=== PATIENT | male | born 1980 | race Two or more races ===

== ENCOUNTER 2023-09-19 15:36 | Emergency (ER) | payer BC, SELFPAY ==
[2023-09-19 15:41] VITALS: BP 144/112; PULSE 125; RESP 20; TEMP 36.7; O2SAT 99; BMI 43.1
--- NOTE | 2023-09-19 15:53 | XR_ITS ---
The [address] [address] Patient Name: JORGE ROSE MRN: [id number] date: 1980 Sex: M Assigned Patient Location: ER Current Patient Location: ED.MAIN Accession/Order Number: [id number] Exam Date: 09/19/2023 16:00 Report Date: 09/19/2023 16:50 At the request of: LATASHA SMITH Procedure: XR chest 1V EXAM: XR chest 1V HISTORY: Dyspnea. COMPARISON: None FINDINGS: The heart is enlarged. There is mild diffuse prominence of the pulmonary vasculature and coarsening of the interstitial markings bilaterally. No significant pleural fluid collection is observed. There is no evidence of a consolidated infiltrate or pneumothorax. XR/XR chest 1V IMPRESSION: Mild vascular congestion. Electronically authenticated by: KYLE MARTINEZ Date: 09/19/2023 16:50
--- NOTE | 2023-09-19 15:53 | ECG_ITS ---
The [facility] Test Date: 2023-09-19 Pat Name: JORGE ROSE Department: Room: - Gender: Male Concierge: : 1980 Requested By: [id number] Order Number: [id number] Reading MD: CECILIA HARTMANN Measurements Intervals [place] Rate: 122 P: 65 MT: 138 QRS: 115 QRSD: 102 T: 25 QT: 334 QTc: 407 Interpretive Statements 1120 Sinus tachycardia 2440 Incomplete right bundle branch block 4068 Nonspecific Twave abnormality 5120 Possible right ventricular hypertrophy 9140 abnormal rhythm ECG No previous ECG available for comparison Electronically Signed On 09-19-2023 17:44:18 EST by CECILIA HARTMANN
--- NOTE | 2023-09-19 15:53 | ED.SOB1 ---
HPI - SOB/Dyspnea General Chief Complaint: Shortness of Breath/Dyspnea Stated Complaint: Edema Time Seen by Provider: 09/19/23 15:52 Source: patient Mode of arrival: walk-in Limitations: no limitations History of Present Illness HPI Narrative: Patient here complaining shortness of breath and leg edema. He's got numb or medical problems but we have no previous records from this institution and is extremely poor historian. Apparently gets most was cared [place] we will ask for those reports. He says he hasn't taken his medications for months and months. Because he was noncompliant his primary care doctor wouldn't see him.he states he was in the emergency room at [place] and they did give him some Lasix but he is vague on the details or the dosages. We will contact pharmacy to see the details that information. He's not been here before as noted. He says he really doesn't have much shortness of breath. He has lost swelling of his legs extending up into the scrotum. His been insulin-dependent diabetes patient for many years and he is taking his diabetes meds on a regular basis especially the insulin. He's not sure if he is taking his metformin. Related Data Home Medications Medication Instructions Recorded Confirmed furosemide 20 mg tablet 20 mg PO DAILY 09/19/23 09/19/23 insulin aspart U-100 100 unit/mL 10 unit subcut DAILY 09/19/23 09/19/23 (3 mL) subcutaneous pen (Novolog FlexPen U-100 Insulin aspart) insulin detemir U-100 100 unit/mL 1 unit subcut DAILY 09/19/23 09/19/23 (3 mL) subcutaneous pen (Levemir FlexPen) insulin detemir U-100 100 unit/mL 45 unit subcut DAILY 09/19/23 09/19/23 (3 mL) subcutaneous pen (Levemir FlexPen) Allergies Allergy/AdvReac Type Severity Reaction Status Date / Time No Known Drug Allergies Allergy Verified 09/19/23 15:40 [facility] Social History Smoking status: Current every day smoker Exam Narrative Exam Narrative: pleasant 42-year-old appears somewhat older than stated age. Vital signs are noted.venture his mother did come and assist in the history gathering. He also did obtain records from [facility] from his previous his visit there. He is not in a respiratory distress. He has moist mucous membranes. There is no pallor or cyanosis or diaphoresis. Lungs have some scattered rhonchi but no wheezing. Heart rate and rhythm are normal he does have tachycardia. His EKG did show sinus tachycardia but no EKG changes from an EKG done on 07/13/2023 and [place]. He's got substantial edema from his scrotal area distal to his lower extremities. He does wear support stockings bilaterally. There is no indication of arterial vascular insufficiency in his legs. He does not have any cyanosis. Does not have any tenderness or evidence of deep vein thrombosis in the extremities. Constitutional Vital Signs, click to edit/add: Last Vital Signs Temp 98.0 F 09/19/23 15:41 Pulse 125 H 09/19/23 15:41 Resp 20 09/19/23 15:41 BP 124/102 H 09/19/23 17:17 Pulse Ox 99 09/19/23 16:05 O2 Del Method Room Air 09/19/23 16:05 Course Vital Signs Vital signs: Vital Signs Temperature 98.0 F 09/19/23 15:41 Pulse Rate 125 H 09/19/23 15:41 Respiratory Rate 20 09/19/23 15:41 Blood Pressure 144/112 H 09/19/23 15:41 Pulse Oximetry 99 09/19/23 15:41 Oxygen Delivery Method Room Air 09/19/23 15:41 Temperature 98.0 F 09/19/23 15:41 Pulse Rate 125 H 09/19/23 15:41 Respiratory Rate 20 09/19/23 15:41 Blood Pressure 124/102 H 09/19/23 17:17 Pulse Oximetry 99 09/19/23 16:05 Oxygen Delivery Method Room Air 09/19/23 16:05 MDM - SOB/Dyspnea MDM Narrative Medical decision making narrative: this patient admits to noncompliance. I had an extensive talk with him and believe tthere issome degree of depression about his previous life choices and his family relationships. His mother confirms that information and he assures me he'll try to be much more compliant. I don't believe he can work next two days. I have offered him admission but he wants to go home. I will refill on his medications that we got from his pharmaceutical record he will be given 2 mg of Bumex here and will aggressively diureses Similac several days. I will give him some supplemental potassium as well. I emphasized the importance of following up with his primary care doctor to keep evaluation of his laboratory testing. Lab Data Labs: Lab Results 09/19/23 Range/Units 16:05 WBC 10.7 (4.0-11.0) 10^3/uL RBC 5.25 (4.70-6.10) 10^6/uL Hgb 14.9 (14.0-18.0) g/dL Hct 47.1 (42.0-54.0) % MCV 89.7 (80.0-94.0) fL MCH 28.4 (25.9-34.0) pg MCHC 31.6 (29.9-35.2) g/dL RDW 14.6 (11.0-15.0) % Plt Count 360 (150-450) 10^3/uL MPV 9.4 L (9.5-13.5) fL Neut % (Auto) 73.3 (43.0-75.0) % Lymph % (Auto) 17.2 L (20.5-60.0) % [place] % (Auto) 7.9 (1.7-12.0) % Eos % (Auto) 1.0 (0.9-7.0) % Baso % (Auto) 0.3 (0.2-2.0) % Neut # (Auto) 7.9 H (1.4-6.5) 10^3/uL Lymph # (Auto) 1.8 (1.2-3.8) 10^3/uL [place] # (Auto) 0.9 H (0.3-0.8) 10^3/uL Eos # (Auto) 0.1 (0.0-0.7) 10^3/uL Baso # (Auto) 0.0 (0.0-0.1) 10^3/uL Abs Immat Gran (auto) 0.03 (0.00-0.03) 10^3/uL Imm/Tot Granulo (auto) 0.3 (0.0-0.5) % VBG pH 7.457 H (7.330-7.430) VBG pCO2 42.9 (40.0-52.0) mmHg Sodium 138 (136-145) mmol/L Potassium 2.9 L* (3.5-5.1) mmol/L Chloride 99 (98-107) mmol/L Carbon Dioxide 32.3 H (21.0-32.0) mmol/L Anion Gap 9.6 BUN 14.0 (7.0-18.0) mg/dL Creatinine 1.49 H (0.70-1.30) mg/dL Est GFR ( Amer) >60 (>=60) Est GFR (Non-Af Amer) 51 L (>=60) BUN/Creatinine Ratio 9.4 Glucose 101 (74-106) mg/dL Calcium 9.0 (8.5-10.1) mg/dL Total Bilirubin 1.0 (0.2-1.0) mg/dL AST 21 (15-37) U/L ALT 23 (16-63) U/L Alkaline Phosphatase 113 (46-116) U/L Troponin I High Sens 37.2 (4.0-76.1) pg/mL NT-Pro-B Natriuret Pep 7189.0 H* (<=450.0) pg/mL Total Protein 8.0 (6.4-8.2) g/dL Albumin 2.9 L (3.4-5.0) g/dL Globulin 5.1 g/dL Albumin/Globulin Ratio 0.6 Discharge Plan Discharge Chief Complaint: Shortness of Breath/Dyspnea Clinical Impression: Heart failure Patient Disposition: Home, Self-Care Time of Disposition Decision: 17:57 Prescriptions / Home Meds: No Action furosemide 20 mg tablet 20 mg PO DAILY insulin aspart U-100 [Novolog FlexPen U-100 Insulin] 100 unit/mL (3 mL) insulin pen 10 unit SUBCUT DAILY Levemir FlexPen 100 unit/mL (3 mL) insulin pen 1 unit SUBCUT DAILY Levemir FlexPen 100 unit/mL (3 mL) insulin pen 45 unit subcut DAILY Additional Instructions: restart your medications. Take Bumex for the next five days twice a day. Do not go to work for the next two days. Restrict salt intake. Be sure to see her primary care doctor by the end of this week Stand Alone Forms: Portal Instructions Referrals: Physician,Non-Staff, MD [Primary Care Provider] - 1 week
[2023-09-19 16:05] VITALS: O2SAT 99
[2023-09-19 16:14] LABS: PCO2 VBG 42.9 mmHg (40.0-52.0); pH VBG 7.457 (7.330-7.430)
[2023-09-19 16:17] LABS: Basophils Percent Auto 0.3 % (0.2-2.0); Eosinophils Absolute Auto 0.1 10^3/uL (0.0-0.7); Hematocrit 47.1 % (42.0-54.0); Hemoglobin 14.9 g/dL (14.0-18.0); Immature Granulocytes Abs Auto 0.03 10^3/uL (0.00-0.03); Immature Granulocytes Pct Auto 0.3 % (0.0-0.5); Lymphocytes Absolute Auto 1.8 10^3/uL (1.2-3.8); Lymphocytes Percent Auto 17.2 % (20.5-60.0); Mean Corpuscular HGB Conc 31.6 g/dL (29.9-35.2); Mean Corpuscular Hemoglobin 28.4 pg (25.9-34.0); Mean Corpuscular Volume 89.7 fL (80.0-94.0); Mean Platelet Volume 9.4 fL (9.5-13.5); Monocytes Absolute Auto 0.9 10^3/uL (0.3-0.8); Monocytes Percent Auto 7.9 % (1.7-12.0); Neutrophils Absolute Auto 7.9 10^3/uL (1.4-6.5); Neutrophils Percent Auto 73.3 % (43.0-75.0); Platelet Count 360 10^3/uL (150-450); Red Blood Count 5.25 10^6/uL (4.70-6.10); Red Cell Distribution Width 14.6 % (11.0-15.0); White Blood Count 10.7 10^3/uL (4.0-11.0)
[2023-09-19 16:35] LABS: Alanine Aminotransferase 23 U/L (16-63); Albumin Globulin Ratio 0.6; Albumin Level 2.9 g/dL (3.4-5.0); Alkaline Phosphatase 113 U/L (46-116); Anion Gap 9.6; Aspartate Amino Transferase 21 U/L (15-37); BUN Creatinine Ratio 9.4; Carbon Dioxide 32.3 mmol/L (21.0-32.0); Chloride 99 mmol/L (98-107); Estimated GFR (African America >60 (>=60); Estimated GFR (Non-African Ame 51 (>=60); Globulin 5.1 g/dL; Glucose 101 mg/dL (74-106); Sodium 138 mmol/L (136-145); Troponin I High Sensitivity 37.2 pg/mL (4.0-76.1)
[2023-09-19 16:39] LABS: Potassium 2.9 mmol/L (3.5-5.1)
[2023-09-19 17:16] VITALS: BP 124/102
[2023-09-19] MEDS: BUMETANIDE 1 MG/4 ML VIAL 2 MG IVP (17:16)
[2023-09-19 17:17] VITALS: BP 124/102
[2023-09-19 18:36] VITALS: BP 122/87
[2023-09-19] MEDS: LISINOPRIL 10 MG TABLET 20 MG PO (18:36)
[2023-09-19] MEDS: CARVEDILOL 25 MG TABLET PO (18:38)
[2023-09-19 18:43] VITALS: BP 122/87; PULSE 118; RESP 24; O2SAT 98
== END 2023-09-19 18:51 | disposition home or self-care (01) ==
PROVIDERS: Emergency Provider Emergency Medicine Emergency Medical Services
DX: I50.9 Heart failure, unspecified (principal); E11.9 Type 2 diabetes mellitus without complications; F17.210 Nicotine dependence, cigarettes, uncomplicated; Z79.4 Long term (current) use of insulin; Z79.899 Other long term (current) drug therapy
CPT/HCPCS: 36415; 71045; 80053; 82800; 83880; 84484; 85025; 93005; 96374; 99285

== ENCOUNTER 2024-07-09 11:40 | Outpatient (REF) | payer BC, SELFPAY ==
[2024-07-09 11:59] LABS: Basophils Percent Auto 0.3 % (0.2-2.0); Eosinophils Absolute Auto 0.2 10^3/uL (0.0-0.7); Eosinophils Percent Auto 2.4 % (0.9-7.0); Hematocrit 43.6 % (42.0-54.0); Immature Granulocytes Abs Auto 0.03 10^3/uL (0.00-0.03); Immature Granulocytes Pct Auto 0.3 % (0.0-0.5); Lymphocytes Absolute Auto 1.9 10^3/uL (1.2-3.8); Lymphocytes Percent Auto 21.5 % (20.5-60.0); Mean Corpuscular HGB Conc 32.1 g/dL (29.9-35.2); Mean Corpuscular Hemoglobin 30.4 pg (25.9-34.0); Mean Corpuscular Volume 94.6 fL (80.0-94.0); Mean Platelet Volume 9.1 fL (9.5-13.5); Monocytes Absolute Auto 0.7 10^3/uL (0.3-0.8); Monocytes Percent Auto 7.9 % (1.7-12.0); Neutrophils Percent Auto 67.6 % (43.0-75.0); Platelet Count 351 10^3/uL (150-450); Red Blood Count 4.61 10^6/uL (4.70-6.10); Red Cell Distribution Width 13.8 % (11.0-15.0); White Blood Count 8.9 10^3/uL (4.0-11.0)
--- OUTSIDE RECORDS SUMMARY | 2024-07-09 12:00 | XMS_ITS | CCD ---
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 ([id number])[address], [address] [place] [address] Eosinophils (Bld) [#/Vol] 0.3 10*3/uL Normal 0.0-0.4 [facility] Comment on above: Performed By: #### Mary BOWEN, , 1989-01, SWIMMING COACH ####[facility] ([id number])[address], [address] [place] [address] Eosinophils/100 WBC (Bld) 3.3 % Normal [facility] Comment on above: Performed By: #### Mary BOWEN, , 1989-01, SWIMMING COACH ####[facility] ([id number])[address] [address], [place] [address] Erythrocyte distribution width (RBC) [Ratio] 14.1 % Normal 11.5-15.0 [facility] Comment on above: Performed By: #### Mary BOWEN, , 1989-01, SWIMMING COACH ####[facility] ([id number])[address] [address], [place] [address] Hematocrit (Bld) [Volume fraction] 38.4 % Low 39-49 [facility] Comment on above: Performed By: #### Mary BOWEN, , 1989-01, SWIMMING COACH ####[facility] ([id number])[address] [address] Hemoglobin (Bld) [Mass/Vol] 13.2 g/dL Normal 13.0-17.0 [facility] Comment on above: Performed By: #### Mary BOWEN, , 1989-01, SWIMMING COACH ####[facility] ([id number])[address] [address] Lymphocytes (Bld) [#/Vol] 1.7 10*3/uL Normal 1.0-3.5 [facility] Comment on above: Performed By: #### Mary BOWEN, , 1989-01, SWIMMING COACH ####[facility] ([id number])[address] [address] Lymphocytes/100 WBC (Bld) 18.9 % Normal [facility] Comment on above: Performed By: #### Mary BOWEN, , 1989-01, SWIMMING COACH ####[facility] ([id number])[address] [address] MCH (RBC) [Entitic mass] 31.8 pg Normal 27-34 [facility] Comment on above: Performed By: #### Mary BOWEN, , 1989-01, SWIMMING COACH ####[facility] ([id number])[address], [address], [place] [address] MCHC (RBC) [Mass/Vol] 34.2 g/dL Normal 32-36 [facility] Comment on above: Performed By: #### Mary BOWEN, , 1989-01, SWIMMING COACH ####[facility] ([id number])[address], [address] [place] [address] MCV (RBC) [Entitic vol] 93 fL Normal 80-100 [facility] Comment on above: Performed By: #### Mary BOWEN, , 1989-01, SWIMMING COACH ####[facility] ([id number])[address], [address] [place] [address] Monocytes (Bld) [#/Vol] 0.6 10*3/uL Normal 0-0.9 [facility] Comment on above: Performed By: #### Mary BOWEN, , 1989-01, SWIMMING COACH ####[facility] ([id number])[address], [address] [place] [address] Monocytes/100 WBC (Bld) 6.3 % Normal [facility] Comment on above: Performed By: #### Mary BOWEN, , 1989-01, SWIMMING COACH ####[facility] ([id number])[address], [address] [place] [address] Neutrophils/100 WBC (Bld) 71.1 % Normal [facility] Comment on above: Performed By: #### Mary BOWEN, , 1989-01, SWIMMING COACH ####[facility] ([id number])[address], [address] [place] [address] Platelet mean volume (Bld) [Entitic vol] 7.1 fL Normal 7-12 [facility] Comment on above: Performed By: #### Mary BOWEN, , 1989-01, SWIMMING COACH ####[facility] ([id number])[address] [address] Platelets (Bld) [#/Vol] 358 10*3/uL Normal 150-450 [facility] Comment on above: Performed By: #### Mary BOWEN, , 1989-01, SWIMMING COACH ####[facility] ([id number])[address] [address] RBC COUNT 4.13 X10E12/L Normal 4.10-5.70 [facility] Comment on above: Performed By: #### Mary BOWEN, , 1989-01, SWIMMING COACH ####[facility] ([id number])[address] [address] WBC (Bld) [#/Vol] 8.8 10*3/uL Normal 4.0-11.0 [facility] Comment on above: Performed By: #### Mary BOWEN, , 1989-01, SWIMMING COACH ####[facility] ([id number])[address] [address] CREATININEon 06-28-2024 Creatinine [Mass/Vol] 1.02 mg/dL Normal 0.60-1.30 [facility] Comment on above: Result Comment: METH OD TRACEABLE TO IDMS STANDARD Performed By: #### Mary BOWEN, , 1989-01, SWIMMING COACH ####[facility] ([id number])[address] [address] eGFR (CKD-EPI) NON-RACE DEPENDENT >90 Normal >59 [facility] Comment on above: Result Comment: Repo rted eGFR is based on theCKD-EPI 2020 equation that doesnot use a race coefficient. Performed By: #### Mary BOWEN, , 1989-01, SWIMMING COACH ####[facility] ([id number])[address] [place] [address] CRP [Mass/Vol]on 06-28-2024 C REACTIVE PROTEIN 0.3 mg/dL Normal 0.000-0.744 [facility] Comment on above: Performed By: #### C BCA, 3094-0, 1988-, SWIMMING COACH ####[facility] ([id number])[address] [facility], [address] [place] [address] 36on 06-27-2024 36 Attempted to call pt to initiate Opat start but had to leave a message. Awaiting call back. 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 He will need 4 weeks of intravenous cefepime. He will need to have a PICC line placed, and home care will need to assist with dressing changes and labs. [facility] Follow-Upon 06-27-2024 Follow-Up [id number] Dario Rose as 1980 M Date Provider Department Center 06/27/2024 [facility] [place] No family history on file Level of Service:09708 [place] OFFICE/OUTPATIENT ESTABLISHED MOD MDM 30 MIN [facility] Telephoneon 06-27-2024 Telephone [id number] Dario Rose as 1980 M Date Provider Department Center 06/27/2024 [facility] No family history on file [facility] 36on 06-21-2024 36 Patient recently got out of surgery and 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 Augmentin and doxycycline to [facility] BONE CULTUREon 06-19-2024 Bacteria identified Aer cx Nom (Bone) Susceptible [facility] Comment on above: Performed By: #### 6 10-22 ####[facility] ([id number])[address], [address] [place] [address] Surgical Pathologyon 024 Surgical Pathology Normal [facility] Comment on above: Result Comment: [facility] [address] [place] [address] Surgical Pathology ConsultationPatient Name:JORGE ROSE IIIDOB:1980 (Age: 43)Gender:MTaken:06/19/2024eported:06/25/2024hysician(s):Bib Sanz M.D. ([phone])Copy To: Rec. #:[id number]: #[id number] Pathologic DiagnosisRight hallux: Resolving osteomyelitis. Ulceration and acute nad chronic inflammation. Viable resection margin with chronic inflammation. Report Electronically Signed Outcjb/06/25/2024antonieta Sneed MDInterpretation performed at [facility], [address] [place] [address], License number: [id number].Clinical HistoryRight hallux osteomyelitis.Gross DescriptionReceived in formalin labeled ROSE, right great toe is the distal aspect of right hallux, received transected through the proximal bone margin. Specimen is 4.2 cm proximal-distal, 3.2 cm medial-lateral and 2.4 cm dorsal-plantar. The specimen is resected with overlying guzman wrinkled skin with a guzman keratinized nail on the dorsal aspect, 1.6 x 1 cm. The majority of the plantar aspect exhibits a pink-guzman ulcer, 4 x 2 cm, extending at the proximal skin/soft tissue resection margin. The proximal margin is inked black. The specimen section to reveal red-brown softened bone. A technical support representative section of bone is submitted in cassette a after decalcification. Perpendicular sections of the lesion to the proximal margin are submitted in cassette B. (2, ss, [id number], m1) .med/06/20/2024GRSpecimen(s) Received Right great toeFee Codes(s):1; 70966, 46072 Follow-Upon 06-12-2024 Follow-Up [id number] Dario Rose as 1980 M Date Provider Department Center 06/12/2024 [facility] No family history on file Level of Service:69212 [place] OFFICE/OUTPATIENT ESTABLISHED MOD MDM 30 MIN Normal [facility] Follow-Upon 05-29-2024 Follow-Up [id number] Dario Rose as 1980 M Date Provider Department Center 05/29/2024 RUDY J[facility]NSON [facility] No family history on file Level of Service:48701 [place] OFFICE/OUTPATIENT ESTABLISHED MOD MDM 30 MIN Normal [facility] 36on 05-10-2024 36 Received a call from [employer] Nurse NavigatorTom. Wanted to setup a telehealth appointment for PT. Informed her that he needs to have an active MyChart before this can be done. He does not have an email on file for us or with [employer]. Made an in-person appointment for PT with Nurse Navigator. Confirmed our address with her, and I verified PT's phone number, as well as the number listed for PT's EC, spouse. Both are verified by [employer]. As of now, PT will be seen in person for initial appointment, and may setup telehealth for future appointments. Normal [facility] CBC AND AUTO DIFFon 05-10-20 24 ABSOLUTE BASOPHIL 0.1 X10E9/L Normal 0.0-0.2 [facility] Comment on above: Performed By: #### C [facility], 1989-01 ####[facility] ([id number])[address] [place] [address] ABSOLUTE NEUTROPHIL 8.1 X10E9/L High 1.5-6.6 [facility] Comment on above: Performed By: #### C [facility], 1989-01 ####[facility] ([id number])[address] [place] [address] Basophils/100 WBC (Bld) 0.8 % Normal [facility] Comment on above: Performed By: #### C [facility], 1989-01 ####[facility] ([id number])[address] [place] [address] Eosinophils (Bld) [#/Vol] 0.2 10*3/uL Normal 0.0-0.4 [facility] Comment on above: Performed By: #### Mary BOWEN [facility], 1989-01 ####[facility] ([id number])[address] [place] [address] Eosinophils/100 WBC (Bld) 1.7 % Normal [facility] Comment on above: Performed By: #### Mary BOWEN [facility], 1989-01 ####[facility] ([id number])[address] [place] [address] Erythrocyte distribution width (RBC) [Ratio] 13.0 % Normal 11.5-15.0 [facility] Comment on above: Performed By: #### Mary BOWEN [facility], 1989-01 ####[facility] ([id number])[address] [place] [address] Hematocrit (Bld) [Volume fraction] 38.5 % Low 39-49 [facility] Comment on above: Performed By: #### Mary BOWEN [facility], 1989-01 ####[facility] ([id number])[address] [place] [address] Hemoglobin (Bld) [Mass/Vol] 13.0 g/dL Normal 13.0-17.0 [facility] Comment on above: Performed By: #### Mary BOWEN [facility], 1989-01 ####[facility] ([id number])[address] [place] [address] Lymphocytes (Bld) [#/Vol] 1.9 10*3/uL Normal 1.0-3.5 [facility] Comment on above: Performed By: #### Mary BOWEN [facility], 1989-01 ####[facility] ([id number])[address] [place] [address] Lymphocytes/100 WBC (Bld) 16.7 % Normal [facility] Comment on above: Performed By: #### Mary BOWEN [facility], , 1989-01 ####[facility] ([id number])[address] [place] [address] MCH (RBC) [Entitic mass] 31.5 pg Normal 27-34 [facility] Comment on above: Performed By: #### Mary BOWEN [facility], , 1989-01 ####[facility] ([id number])[address] [place] [address] MCHC (RBC) [Mass/Vol] 33.6 g/dL Normal 32-36 [facility] Comment on above: Performed By: #### Mary BOWEN [facility], 1989-01 ####[facility] ([id number])[address] [place] [address] MCV (RBC) [Entitic vol] 94 fL Normal 80-100 [facility] Comment on above: Performed By: #### Mary BOWEN [facility], 1989-01 ####[facility] ([id number])[address] [place] [address] Monocytes (Bld) [#/Vol] 1.0 10*3/uL High 0-0.9 [facility] Comment on above: Performed By: #### Mray BOWEN [facility], 1989-01 ####[facility] ([id number])[address] [place] [address] Monocytes/100 WBC (Bld) 8.8 % Normal [facility] Comment on above: Performed By: #### Mary BOWEN [facility], 1989-01 ####[facility] ([id number])[address] [place] [address] Neutrophils/100 WBC (Bld) 72.0 % Normal [facility] Comment on above: Performed By: #### Mary BOWEN CMP, 1989-01 ####[facility] ([id number])[address] [place] [address] Platelet mean volume (Bld) [Entitic vol] 7.0 fL Normal 7-12 [facility] Comment on above: Performed By: #### Mary BOWEN CMP, , 1989-01 ####[facility] ([id number])[address] [place] [address] Platelets (Bld) [#/Vol] 468 10*3/uL High 150-450 [facility] Comment on above: Performed By: #### Mary BOWEN CMP, 1989-01 ####[facility] ([id number])[address] [place] [address]98 RBC COUNT 4.11 X10E12/L Normal 4.10-5.70 [facility] Comment on above: Performed By: #### Mary BOWEN CMP, 1989-01 ####[facility] ([id number])[address] [place] [address] 00826 WBC (Bld) [#/Vol] 11.2 10*3/uL High 4.0-11.0 [facility] Comment on above: Performed By: #### Mary BOWEN CMP, 1989-01 ####[facility] ([id number])[address] [place] [address] COMPREHENSIVE METABOLIC PANE Matthew 05-10-2024 Albumin [Mass/Vol] 3.1 g/dL Low 3.2-5.3 [facility] Comment on above: Performed By: #### Mary BOWEN CMP, 1989-01 ####[facility] ([id number])[address] [place] [address] [place] [address] ALP [Catalytic activity/Vol] 62 U/L Normal 39-130 [facility] Comment on above: Performed By: #### C BCA, CMP, , 1989-01 ####[facility] ([id number])[address] [place] [address] [place] [address] ALT [Catalytic activity/Vol] 18 U/L Normal 0-40 [facility] Comment on above: Performed By: #### C BCA, CMP, , 1989-01 ####[facility] ([id number])[address] [place] [address] Anion gap [Moles/Vol] 6 mmol/L Normal 5-15 [facility] Comment on above: Performed By: #### C BCA, CMP, , 1989-01 ####[facility] ([id number])[address] [place] [address] [place] [address] AST [Catalytic activity/Vol] 16 U/L Normal 0-41 [facility] Comment on above: Performed By: #### C BCA, CMP, , 1989-01 ####[facility] ([id number])[address] [place] [address] [place] [address] Bilirubin [Mass/Vol] 0.6 mg/dL Normal 0.3-1.2 [facility] Comment on above: Performed By: #### C BCA, CMP, 1989-01 ####[facility] ([id number])[address] [place] [address] Calcium [Mass/Vol] 8.8 mg/dL Normal 8.5-10.5 [facility] Comment on above: Performed By: #### C BCA, CMP, 1989-01 ####[facility] ([id number])[address] [place] [address] Chloride [Moles/Vol] 102 mmol/L Normal 98-109 [facility] Comment on above: Performed By: #### C [facility], 1989-01 ####[facility] ([id number])[address] [place] [address] CO2 [Moles/Vol] 25 mmol/L Normal 22-32 [facility] Comment on above: Performed By: #### C [facility], 1989-01 ####[facility] ([id number])[address] [place] [address] Creatinine [Mass/Vol] 0.98 mg/dL Normal 0.70-1.20 [facility] Comment on above: Result Comment: METH OD TRACEABLE TO IDMS STANDARD Performed By: #### C [facility], 1989-01 ####[facility] ([id number])[address] [place] [address] eGFR (CKD-EPI) NON-RACE DEPENDENT >90 Normal >59 [facility] Comment on above: Result Comment: Repo rted eGFR is based on theCKD-EPI 2020 equation that doesnot use a race coefficient. Performed By: #### C [facility], 1989-01 ####[facility] ([id number])[address] [place] [address]09 Glucose [Mass/Vol] 209 mg/dL High 65-99 [facility] Comment on above: Performed By: #### C [facility], 1989-01 ####[facility] ([id number])[address] [place] [address]6067 Potassium [Moles/Vol] 4.6 mmol/L Normal 3.5-5.0 [facility] Comment on above: Performed By: #### C [facility], 1989-01 ####[facility] ([id number])[address] [place] [address]9780 Protein [Mass/Vol] 7.7 g/dL Normal 6.0-8.0 [facility] Comment on above: Performed By: #### Mary BOWEN CMP, , 1989-01 ####[facility] ([id number])[address] [place] [address] 95371 Sodium [Moles/Vol] 133 mmol/L Low 134-146 [facility] Comment on above: Performed By: #### Mary BOWEN CMP, 1989-01 ####[facility] ([id number])[address] [place] [address] 36896 Urea nitrogen [Mass/Vol] 23 mg/dL Normal 5-23 [facility] Comment on above: Performed By: #### Mary BOWEN CMP, 1989-01 ####[facility] ([id number])[address] [place] [address] CRP [Mass/Vol]on 05-10-2024 C REACTIVE PROTEIN 3.8 mg/dL High 0.000-0.744 [facility] Comment on above: Performed By: #### Mary BOWEN CMP, 1989-01 ####[facility] ([id number])[address] [place] [address]019 Glucose Glucometer (BldC) [M ass/Vol]on 05-10-2024 Glucose [Mass/Vol] 272 mg/dL High 65-99 [facility] Glucose [Mass/Vol] 203 mg/dL High 65-99 [facility] MAGNESIUMon 05-10-2024 Magnesium [Mass/Vol] 2.0 mg/dL Normal 1.8-2.6 [facility] Comment on above: Performed By: #### Mary BOWEN CMP, 1989-01 ####[facility] ([id number])[address] [place] [address] 23596 Vancomycin trough [Mass/Vol] on 05-10-2024 VANCOMYCIN TROUGH 13.7 ug/mL Normal 5.0-20.0 [facility] Comment on above: Performed By: #### 4 092-3 ####[facility] ([id number])[address] [place] [address]608 CBC AND AUTO DIFFon 05-09-20 ABSOLUTE BASOPHIL 0.1 X10E9/L Normal 0.0-0.2 [facility] Comment on above: Performed By: #### C FELICIANO, , CBCA ####[facility] ([id number])[address] [place] [address] ABSOLUTE NEUTROPHIL 8.7 X10E9/L High 1.5-6.6 [facility] Comment on above: Performed By: #### C FELICIANO, , CBCA ####[facility] ([id number])[address] [place] [address]502 Basophils/100 WBC (Bld) 1.0 % Normal [facility] Comment on above: Performed By: #### C FELICIANO, , CBCA ####[facility] ([id number])[address] [place] [address]12 Eosinophils (Bld) [#/Vol] 0.2 10*3/uL Normal 0.0-0.4 [facility] Comment on above: Performed By: #### C FELICIANO, , CBCA ####[facility] ([id number])[address] [place] [address] 47886 Eosinophils/100 WBC (Bld) 1.8 % Normal [facility] Comment on above: Performed By: #### Mary WIGGINS, , CBCA ####[facility] ([id number])[address] [place] [address] 02936 Erythrocyte distribution width (RBC) [Ratio] 13.0 % Normal 11.5-15.0 [facility] Comment on above: Performed By: #### C FELICIANO, , CBCA ####[facility] ([id number])[address] [place] [address] 83249 Hematocrit (Bld) [Volume fraction] 39.2 % Normal 39-49 [facility] Comment on above: Performed By: #### C FELICIANO, , CBCA ####[facility] ([id number])[address] [place] [address] 10365 Hemoglobin (Bld) [Mass/Vol] 13.2 g/dL Normal 13.0-17.0 [facility] Comment on above: Performed By: #### C FELICIANO, , CBCA ####[facility] ([id number])[address] [place] [address] 63414 Lymphocytes (Bld) [#/Vol] 2.0 10*3/uL Normal 1.0-3.5 [facility] [facility] Comment on above: Performed By: #### C FELICIANO, , CBCA ####[facility] ([id number])[address] [place] [address] 35552 Lymphocytes/100 WBC (Bld) 16.3 % Normal [facility] Comment on above: Performed By: #### C FELICIANO, , CBCA ####[facility] ([id number])[address] [place] [address] 82784 MCH (RBC) [Entitic mass] 31.7 pg Normal 27-34 [facility] Comment on above: Performed By: #### C FELICIANO, , CBCA ####[facility] ([id number])[address] [place] [address] 08423 MCHC (RBC) [Mass/Vol] 33.6 g/dL Normal 32-36 [facility] Comment on above: Performed By: #### C FELICIANO, , CBCA ####[facility] ([id number])[address] [place] [address] 63656 MCV (RBC) [Entitic vol] 94 fL Normal 80-100 [facility] Comment on above: Performed By: #### Mary WIGGINS, , CBCA ####[facility] ([id number])[address] [place] [address] 26975 Monocytes (Bld) [#/Vol] 1.0 10*3/uL High 0-0.9 [facility] Comment on above: Performed By: #### C FELICIANO, , CBCA ####[facility] ([id number])[address] [place] [address] 79567 Monocytes/100 WBC (Bld) 8.6 % Normal [facility] Comment on above: Performed By: #### Mary WIGGINS, , CBCA ####[facility] ([id number])[address] [place] [address] 22212 Neutrophils/100 WBC (Bld) 72.3 % Normal [facility] Comment on above: Performed By: #### Mary WIGGINS, , CBCA ####[facility] ([id number])[address] [place] [address] 17706 Platelet mean volume (Bld) [Entitic vol] 7.3 fL Normal 7-12 [facility] Comment on above: Performed By: #### Mary WIGGINS, , CBCA ####[facility] ([id number])[address] [place] [address] 18420 Platelets (Bld) [#/Vol] 444 10*3/uL Normal 150-450 [facility] Comment on above: Performed By: #### C FELICIANO, , CBCA ####[facility] ([id number])[address] [place] [address] 86268 RBC COUNT 4.15 X10E12/L Normal 4.10-5.70 [facility] Comment on above: Performed By: #### C FELICIANO, , CBCA ####[facility] ([id number])[address] [place] [address] 95259 WBC (Bld) [#/Vol] 12.0 10*3/uL High 4.0-11.0 [facility] Comment on above: Performed By: #### C FELICIANO, , CBCA ####[facility] ([id number])[address] [place] [address] 36701 COMPREHENSIVE METABOLIC PANE [facility] 05-09-2024 Albumin [Mass/Vol] 3.2 g/dL Normal 3.2-5.3 [facility] Comment on above: Performed By: #### C FELICIANO, , CBCA ####[facility] ([id number])[address] [place] [address] 10560 ALP [Catalytic activity/Vol] 62 U/L Normal 39-130 [facility] Comment on above: Performed By: #### C FELICIANO, , CBCA ####[facility] ([id number])[address] [place] [address] 43119 ALT [Catalytic activity/Vol] 16 U/L Normal 0-40 [facility] Comment on above: Performed By: #### C FELICIANO, , CBCA ####[facility] ([id number])[address] [place] [address] 99077 Anion gap [Moles/Vol] 7 mmol/L Normal 5-15 [facility] Comment on above: Performed By: #### C FELICIANO , CBCA ####[facility] ([id number])[address] [place] [address] 05482 AST [Catalytic activity/Vol] 15 U/L Normal 0-41 [facility] Comment on above: Performed By: #### C FELICIANO, , CBCA ####[facility] ([id number])[address] [place] [address] 65980 Bilirubin [Mass/Vol] 0.7 mg/dL Normal 0.3-1.2 [facility] Comment on above: Performed By: #### C FELICIANO, , CBCA ####[facility] ([id number])[address] [place] [address] 58349 Calcium [Mass/Vol] 8.7 mg/dL Normal 8.5-10.5 [facility] Comment on above: Performed By: #### C FELICIANO, , CBCA ####[facility] ([id number])[address] [place] [address] 87055 Chloride [Moles/Vol] 101 mmol/L Normal 98-109 [facility] Comment on above: Performed By: #### C FELICIANO, , CBCA ####[facility] ([id number])[address] [place] [address] 28317 CO2 [Moles/Vol] 25 mmol/L Normal 22-32 [facility] Comment on above: Performed By: #### C FELICIANO, , CBCA ####[facility] ([id number])[address] [place] [address] 03258 Creatinine [Mass/Vol] 0.86 mg/dL Normal 0.70-1.20 [facility] Comment on above: Result Comment: METH OD TRACEABLE TO IDMS STANDARD Performed By: #### C FELICIANO, , CBCA ####[facility] ([id number])[address] [place] [address], [place] [address] eGFR (CKD-EPI) NON-RACE DEPENDENT >90 Normal >59 [facility] Comment on above: Result Comment: Repo rted eGFR is based on theCKD-EPI 2020 equation that doesnot use a race coefficient. Performed By: #### C FELICIANO, , CBCA ####[facility] ([id number])[address] [place] [address] [place] [address] Glucose [Mass/Vol] 185 mg/dL High 65-99 [facility] Comment on above: Performed By: #### C FELICIANO, , CBCA ####[facility] ([id number])[address] [place] [address] 55346 Potassium [Moles/Vol] 4.3 mmol/L Normal 3.5-5.0 [facility] Comment on above: Performed By: #### C FELICIANO, , CBCA ####[facility] ([id number])[address] [place] [address] 93280 Protein [Mass/Vol] 8.0 g/dL Normal 6.0-8.0 [facility] Comment on above: Performed By: #### C FELICIANO, , CBCA ####[facility] ([id number])[address] [place] [address] [place] [address] Sodium [Moles/Vol] 133 mmol/L Low 134-146 [facility] Comment on above: Performed By: #### C FELICIANO, , CBCA ####[facility] ([id number])[address] [place] [address] 08703 Urea nitrogen [Mass/Vol] 21 mg/dL Normal 5-23 [facility] Comment on above: Performed By: #### Mary WIGGINS, , CBCA ####[facility] ([id number])[address] [place] [address] 60021 Glucose Glucometer (BldC) [M ass/Vol]on 05-09-2024 Glucose [Mass/Vol] 160 mg/dL High 65-99 [facility] Glucose [Mass/Vol] 279 mg/dL High 65-99 [facility] Glucose [Mass/Vol] 253 mg/dL High 65-99 [facility] MAGNESIUMon 05-09-2024 Magnesium [Mass/Vol] 2.0 mg/dL Normal 1.8-2.6 [facility] Comment on above: Performed By: #### [place], [address]-2, CBCA ####[facility] ([id number])[address] [place] [address] 24933 CBC AND AUTO DIFFon 05-08-20 ABSOLUTE BASOPHIL 0.1 X10E9/L Normal 0.0-0.2 [facility] Comment on above: Performed By: #### Mary BOWEN [facility], 1989-01 ####[facility] ([id number])[address] [place] [address] 74747#### [id number] ####[facility] ([id number])[address], [address] [place] [address] 14344 Basophils/100 WBC (Bld) 1.0 % Normal [facility] Comment on above: Performed By: #### Mary BOWEN CMP, 1989-01 ####[facility] ([id number])[address] [place] [address] 41959#### 60259-9 ####[facility] ([id number])[address], [address], [place] [address] Eosinophils (Bld) [#/Vol] 0.1 10*3/uL Normal 0.0-0.4 [facility] Comment on above: Performed By: #### Mary BOWEN CMP, 1989-01 ####[facility] ([id number])[address] [place] [address] 44814#### [id number] ####[facility] ([id number])[address], [address] [place] [address] 18887 Eosinophils/100 WBC (Bld) 1.0 % Normal [facility] Comment on above: Performed By: #### Mary BOWEN CMP, 1989-01 ####[facility] ([id number])[address] [place] [address] 80834#### 40277-1 ####[facility] ([id number])0 [facility], [address] [address] Erythrocyte distribution width (RBC) [Ratio] 13.1 % Normal 11.5-15.0 [facility] Comment on above: Performed By: #### Mary BOWEN CMP, 1989-01 ####[facility] ([id number])[address] [place] [address] 51857#### [id number] ####[facility] ([id number])[address], [address] [place] [address] 97301 Hematocrit (Bld) [Volume fraction] 38.1 % Low 39-49 [facility] Comment on above: Performed By: #### Mary BOWEN CMP, 1989-01 ####[facility] ([id number])[address] [place] [address] 91614#### 82135-4 ####[facility] ([id number])[address], [address] [place] [address] 49098 Hemoglobin (Bld) [Mass/Vol] 13.0 g/dL Normal 13.0-17.0 [facility] Comment on above: Performed By: #### Mary BOWEN CMP, 1989-01 ####[facility] ([id number])[address] [place] [address] 13169#### [id number] ####[facility] ([id number])[address], [address] [place] [address] 48215 LYMPHOCYTE, ATYPICAL 2.0 % Normal [facility] Comment on above: Performed By: #### Mary BOWEN CMP, 1989-01 ####[facility] ([id number])[address] [place] [address] 15534#### [id number] ####[facility] ([id number])[address], [address] [place] [address] 27324 Lymphocytes (Bld) [#/Vol] 3.1 10*3/uL Normal 1.0-3.5 [facility] Comment on above: Performed By: #### Mary BOWEN CMP, 1989-01 ####[facility] ([id number])[address] [place] [address] 12873#### [id number] ####[facility] ([id number])[address], [address] [place] [address] 76285 Lymphocytes/100 WBC (Bld) 19.0 % Normal [facility] Comment on above: Performed By: #### Mary BOWEN CMP, 1989-01 ####[facility] ([id number])[address] [place] [address] 38566#### [id number] ####[facility] ([id number])[address], [address] [place] [address] 10222 MCH (RBC) [Entitic mass] 31.6 pg Normal 27-34 [facility] Comment on above: Performed By: #### Mary BOWEN CMP, 1989-01 ####[facility] ([id number])[address] [place] [address] 75023#### 70421-5 ####[facility] ([id number])[address], [address], [place] [address] MCHC (RBC) [Mass/Vol] 34.0 g/dL Normal 32-36 [facility] Comment on above: Performed By: #### Mary BOWEN [facility], 1989-01 ####[facility] ([id number])[address] [place] [address] 44372#### 27113-5 ####[facility] ([id number])[address], [address], [place] [address] MCV (RBC) [Entitic vol] 93 fL Normal 80-100 [facility] Comment on above: Performed By: #### Mary BOWEN [facility], 1989-01 ####[facility] ([id number])[address] [place] [address] 46310#### 09311-9 ####[facility] ([id number])[address], [address], [place] [address] Monocytes (Bld) [#/Vol] 2.2 10*3/uL High 0-0.9 [facility] Comment on above: Performed By: #### Mary BOWEN [facility], 1989-01 ####[facility] ([id number])[address] [place] [address] 82713#### 84129-2 ####[facility] ([id number])[address], [address], [place] [address] Monocytes/100 WBC (Bld) 15.0 % Normal [facility] Comment on above: Performed By: #### Mary BOWEN [facility], 1989-01 ####[facility] ([id number])[address] [place] [address] 68209#### [id number] ####[facility] ([id number])[address] [address], [place] [address] Neutrophils (Bld) [#/Vol] 9.3 10*3/uL High 1.5-6.6 [facility] Comment on above: Performed By: #### Mary BOWEN CMP, 1989-01 ####[facility] ([id number])[address] [place] [address] 66203#### 62040-9 ####[facility] ([id number])[address], [address] [place] [address] 56178 Platelet mean volume (Bld) [Entitic vol] 7.3 fL Normal 7-12 [facility] Comment on above: Performed By: #### Mary BOWEN CMP, 1989-01 ####[facility] ([id number])[address] [place] [address] 89111#### 65163-0 ####[facility] ([id number])[address], [address] [place] [address] 97382 Platelets (Bld) [#/Vol] 420 10*3/uL Normal 150-450 [facility] Comment on above: Performed By: #### Mary BOWEN CMP, 1989-01 ####[facility] ([id number])[address] [place] [address] 55542#### 73195-2 ####[facility] ([id number])[address], [address] [place] [address] 23060 RBC COUNT 4.10 X10E12/L Normal 4.10-5.70 [facility] Comment on above: Performed By: #### Mary BOWEN CMP, 1989-01 ####[facility] ([id number])[address] [place] [address] 09705#### [id number] ####[facility] ([id number])[address], [address], [place] [address] RBC morphology finding Nom (Bld) NORMAL Normal [facility] Comment on above: Performed By: #### C BCA, CMP, 1989-01 ####[facility] ([id number])[address] [place] [address] 55906#### 57253-8 ####[facility] ([id number])[address], [address], [place] [address] SEG NEUTROPHIL 62.0 % Normal [facility] Comment on above: Performed By: #### C BCA, CMP, 1989-01 ####[facility] ([id number])[address] [place] [address] 85744#### 45367-0 ####[facility] ([id number])[address], [place] [address] WBC (Bld) [#/Vol] 14.8 10*3/uL High 4.0-11.0 [facility] Comment on above: Performed By: #### Mary BCA, CMP, 1989-01 ####[facility] ([id number])[address] [place] [address] 41312#### 57528-5 ####[facility] ([id number])[address] [address] COMPREHENSIVE METABOLIC PANE Matthew 05-08-2024 Albumin [Mass/Vol] 3.1 g/dL Low 3.2-5.3 [facility] Comment on above: Performed By: #### C BCA, CMP, 1989-01 ####[facility] ([id number])[address] [place] [address] 92713#### [id number] ####[facility] ([id number])[address], [address], [place] [address] ALP [Catalytic activity/Vol] 62 U/L Normal 39-130 [facility] Comment on above: Performed By: #### C BCA, [facility], 1988-01 ####[facility] ([id number])[address] [place] [address] 97299#### 06380-4 ####[facility] ([id number])[address], [place] [address] ALT [Catalytic activity/Vol] 14 U/L Normal 0-40 [facility] Comment on above: Performed By: #### C BCA, [facility], 1988-01 ####[facility] ([id number])[address] [place] [address] 38949#### 76360-7 ####[facility] ([id number])[address], [place] [address] Anion gap [Moles/Vol] 9 mmol/L Normal 5-15 [facility] Comment on above: Performed By: #### Mary BCA, [facility], 1988-01 ####[facility] ([id number])[address] [place] [address] 95723#### 63376-0 ####[facility] ([id number])[address], [place] [address] AST [Catalytic activity/Vol] 11 U/L Normal 0-41 [facility] Comment on above: Performed By: #### Mary BCA, CMP, 1989-01 ####[facility] ([id number])[address] [place] [address] 34388#### 58911-3 ####[facility] ([id number])[address], [place] [address] Bilirubin [Mass/Vol] 0.9 mg/dL Normal 0.3-1.2 [facility] Comment on above: Performed By: #### Mary BCA, CMP, 1989-01 ####[facility] ([id number])[address] [place] [address] 70753#### 41146-5 ####[facility] ([id number])[address] [facility], [address], [place] [address] Calcium [Mass/Vol] 8.6 mg/dL Normal 8.5-10.5 [facility] Comment on above: Performed By: #### C JESSI CMP, 1989-01 ####[facility] ([id number])[address] [place] [address] 83193#### 65134-4 ####[facility] ([id number])0 [facility], [address] [place] [address] 61011 Chloride [Moles/Vol] 102 mmol/L Normal 98-109 [facility] Comment on above: Performed By: #### Mary BOWEN CMP, 1989-01 ####[facility] ([id number])[address] [place] [address] 96769#### 37633-4 ####[facility] ([id number])0 [facility], [address] [place] [address] 37356 CO2 [Moles/Vol] 23 mmol/L Normal 22-32 [facility] Comment on above: Performed By: #### C JESSI CMP, 1989-01 ####[facility] ([id number])[address] [place] [address] 68215#### 00188-7 ####[facility] ([id number])[address] [facility], [address], [place] [address] Creatinine [Mass/Vol] 0.89 mg/dL Normal 0.70-1.20 [facility] Comment on above: Result Comment: METH OD TRACEABLE TO IDMS STANDARD Performed By: #### C BCA CMP, 1989-01 ####[facility] ([id number])[address] [place] [address] 60120#### [id number] ####[facility] ([id number])[address], [address] [place] [address] 31104 eGFR (CKD-EPI) NON-RACE DEPENDENT >90 Normal >59 [facility] Comment on above: Result Comment: Repo rted eGFR is based on theCKD-EPI 2020 equation that doesnot use a race coefficient. Performed By: #### Mary BOWEN CMP, 1989-01 ####[facility] ([id number])[address] [place] [address] 47450#### 06307-6 ####[facility] ([id number])[address] [place] [address] 52464 Glucose [Mass/Vol] 168 mg/dL High 65-99 [facility] Comment on above: Performed By: #### Mary BOWEN CMP, 1989-01 ####[facility] ([id number])[address] [place] [address] 91970#### 29462-9 ####[facility] ([id number])[address] [place] [address] 90876 Potassium [Moles/Vol] 4.0 mmol/L Normal 3.5-5.0 [facility] Comment on above: Performed By: #### Mary BOWEN CMP, 1989-01 ####[facility] ([id number])[address] [place] [address] 78691#### 60326-3 ####[facility] ([id number])[address] [address] [place] [address] 58248 Protein [Mass/Vol] 7.8 g/dL Normal 6.0-8.0 [facility] Comment on above: Performed By: #### Mary BOWEN CMP, 1989-01 ####[facility] ([id number])[address] [place] [address] 45103#### 23624-9 ####[facility] ([id number])[address] [facility], [address] [place] [address] 99983 Sodium [Moles/Vol] 134 mmol/L Normal 134-146 [facility] Comment on above: Performed By: #### Mary BOWEN CMP, 1989-01 ####[facility] ([id number])[address] [place] [address] 69704#### 42906-8 ####[facility] ([id number])[address] [facility], [address] [place] [address] 30413 Urea nitrogen [Mass/Vol] 17 mg/dL Normal 5-23 [facility] Comment on above: Performed By: #### Mary BOWEN CMP, 1989-01 ####[facility] ([id number])[address] [place] [address] 39103#### 88035-6 ####[facility] ([id number])0 [facility], [address] [place] [address] 23788 CRP [Mass/Vol]on 05-08-2024 C REACTIVE PROTEIN 8.7 mg/dL High 0.000-0.744 [facility] Comment on above: Performed By: #### Mary BOWEN CMP, 1989-01 ####[facility] ([id number])[address] [place] [address] 97645#### 61411-9 ####[facility] ([id number])0 [facility], [address] [place] [address] 93178 ESR Photometric method (Bld) [Velocity]on 05-08-2024 ESR, ERYTHROCYTE SEDIMENTATION RATE 88 mm/h High 0-15 [facility] Comment on above: Performed By: #### Mary BOWEN CMP, 1989-01 ####[facility] ([id number])[address] [place] [id number]#### [id number] ####[facility] ([id number])2130 [facility], [address] [place] [id number] Glucose Glucometer (BldC) [M ass/Vol]on 05-08-2024 Glucose [Mass/Vol] 216 mg/dL High 65-99 [facility] Glucose [Mass/Vol] 218 mg/dL High 65-99 [facility] Glucose [Mass/Vol] 243 mg/dL High 65-99 [facility] Glucose [Mass/Vol] 264 mg/dL High 65-99 [facility] CBC AND AUTO DIFFon 05-07-20 24 Eosinophils (Bld) [#/Vol] 0.1 10*3/uL Normal 0.0-0.4 [facility] Comment on above: Performed By: #### Mary BOWEN CMP, , 1989-01 ####[facility] ([id number])[address] [place] [id number]#### [id number] ####[facility] ([id number])0 [facility], [address] [address] Eosinophils/100 WBC (Bld) 1.0 % Normal [facility] Comment on above: Performed By: #### Mary BOWEN CMP, , 1989-01 ####[facility] ([id number])[address] [place] [place] [address] 64523#### [id number] ####[facility] ([id number])[address] [facility], [address] [place] [address] 45124 Erythrocyte distribution width (RBC) [Ratio] 13.0 % Normal 11.5-15.0 [facility] Comment on above: Performed By: #### Mary BOWEN CMP, , 1989-01 ####[facility] ([id number])[address] [place] [address] 96589#### [id number] ####[facility] ([id number])[address], [address] [place] [address] 07512 Hematocrit (Bld) [Volume fraction] 39.6 % Normal 39-49 [facility] Comment on above: Performed By: #### Mary BOWEN [facility], , 1989-01 ####[facility] ([id number])[address] [place] [address] 92003#### 18962-9 ####[facility] ([id number])[address], [address] [place] [address] 53188 Hemoglobin (Bld) [Mass/Vol] 13.3 g/dL Normal 13.0-17.0 [facility] Comment on above: Performed By: #### Mary BOWEN [facility], 1989-01 ####[facility] ([id number])[address] [place] [address] 63557#### 25187-7 ####[facility] ([id number])[address], [address] [place] [address] 45250 Lymphocytes (Bld) [#/Vol] 1.8 10*3/uL Normal 1.0-3.5 [facility] Comment on above: Performed By: #### Mary BOWEN [facility], , 1989-01 ####[facility] ([id number])[address] [place] [address] 89995#### [id number] ####[facility] ([id number])[address], [address] [place] [address] 94843 Lymphocytes/100 WBC (Bld) 12.4 % Normal [facility] Comment on above: Performed By: #### Mary BOWEN [facility], , 1989-01 ####[facility] ([id number])[address] [place] [address] 72647#### 69084-8 ####[facility] ([id number])[address], [address] [place] [address] 20278 MCH (RBC) [Entitic mass] 31.4 pg Normal 27-34 [facility] Comment on above: Performed By: #### Mary BOWEN CMP, , 1989-01 ####[facility] ([id number])[address] [place] [address] 23415#### 09548-1 ####[facility] ([id number])0 [facility], [address] [place] [address] 41347 MCHC (RBC) [Mass/Vol] 33.6 g/dL Normal 32-36 [facility] Comment on above: Performed By: #### Mary BOWEN CMP, , 1989-01 ####[facility] ([id number])[address] [place] [address] 73178#### [id number] ####[facility] ([id number])0 [facility], [address] [place] [address] 15905 MCV (RBC) [Entitic vol] 94 fL Normal 80-100 [facility] Comment on above: Performed By: #### Mary BOWEN CMP, , 1989-01 ####[facility] ([id number])[address] [place] [address] 44347#### 03706-4 ####[facility] ([id number])0 [facility], [address] [place] [address] 25565 Monocytes (Bld) [#/Vol] 1.6 10*3/uL High 0-0.9 [facility] Comment on above: Performed By: #### Mary BOWEN CMP, , 1989-01 ####[facility] ([id number])[address] [place] [address] 70956#### 98095-3 ####[facility] ([id number])[address]130 [facility], [address] [address] Monocytes/100 WBC (Bld) 10.5 % Normal [facility] Comment on above: Performed By: #### Mary BOWEN CMP, , 1989-01 ####[facility] ([id number])[address] [place] [address] 40569#### 87787-2 ####[facility] ([id number])[address] [place] [address], [address] [address] Neutrophils (Bld) [#/Vol] 11.4 10*3/uL High 1.5-6.6 [facility] Comment on above: Performed By: #### Mary BOWEN CMP, , 1989-01 ####[facility] ([id number])[address] [place] [address] 02894#### 06904-4 ####[facility] ([id number])[address] [place] [address], [address] [address] Platelet mean volume (Bld) [Entitic vol] 7.1 fL Normal 7-12 [facility] Comment on above: Performed By: #### Mary BOWEN CMP, , 1989-01 ####[facility] ([id number])[address] [place] [address] 64069#### 83565-7 ####[facility] ([id number])0 [facility], [address] [place] [address] 23833 Platelets (Bld) [#/Vol] 369 10*3/uL Normal 150-450 [facility] Comment on above: Performed By: #### Mary BOWEN CMP, , 1989-01 ####[facility] ([id number])[address] [place] [address] 92741#### 82307-7 ####[facility] ([id number])[address] [facility], [address], [place] [address] RBC COUNT 4.23 X10E12/L Normal 4.10-5.70 [facility] Comment on above: Performed By: #### Mary BOWEN [facility], , 1988-01 ####[facility] ([id number])[address] [place] [address] 44323#### 51164-4 ####[facility] ([id number])0 [facility], [address] [place] [address] 77684 SEG NEUTROPHIL 76.1 % Normal [facility] Comment on above: Performed By: #### C JESSI [facility], , 1988-01 ####[facility] ([id number])[address] [place] [address] 52620#### 76766-8 ####[facility] ([id number])0 [facility], [address] [place] [address] 88541 WBC (Bld) [#/Vol] 14.9 10*3/uL High 4.0-11.0 [facility] Comment on above: Performed By: #### Mary BOWEN [facility], , 1988-01 ####[facility] ([id number])[address] [place] [address] 93945#### 01783-0 ####[facility] ([id number])[address] [facility], [address] [place] [address] 82665 COMPREHENSIVE METABOLIC PANE Matthew 05-07-2024 Albumin [Mass/Vol] 3.1 g/dL Low 3.2-5.3 [facility] Comment on above: Performed By: #### Mary BOWEN, CMP, , 1989-01 ####[facility] ([id number])[address] [place] [address] 04420#### 84027-3 ####[facility] ([id number])[address], [address] [place] [address] ALP [Catalytic activity/Vol] 67 U/L Normal 39-130 [facility] Comment on above: Performed By: #### C BCA, CMP, , 1988-01 ####[facility] ([id number])[address] [place] [address] 60285#### 78197-9 ####[facility] ([id number])[address], [address], [place] [address] ALT [Catalytic activity/Vol] 13 U/L Normal 0-40 [facility] Comment on above: Performed By: #### C BCA, CMP, , 1988-01 ####[facility] ([id number])[address] [place] [address] 16756#### 22740-0 ####[facility] ([id number])[address], [address], [place] [address] Anion gap [Moles/Vol] 7 mmol/L Normal 5-15 [facility] Comment on above: Performed By: #### C BCA, CMP, , 1988-01 ####[facility] ([id number])[address] [place] [address] 12281#### 35100-5 ####[facility] ([id number])[address], [address], [place] [address] AST [Catalytic activity/Vol] 12 U/L Normal 0-41 [facility] Comment on above: Performed By: #### C BCA, CMP, 1988-01 ####[facility] ([id number])[address] [place] [address] 42014#### 89749-2 ####[facility] ([id number])[address], [address], [place] [address] Bilirubin [Mass/Vol] 1.0 mg/dL Normal 0.3-1.2 [facility] Comment on above: Performed By: #### C BCA, [facility], , 1988-01 ####[facility] ([id number])[address] [place] [address] 40595#### 64020-7 ####[facility] ([id number])[address], [address], [place] [address] Calcium [Mass/Vol] 8.2 mg/dL Low 8.5-10.5 [facility] Comment on above: Performed By: #### C BCA, [facility], 1988-01 ####[facility] ([id number])[address] [place] [address] 60820#### 30713-6 ####[facility] ([id number])[address], [address], [place] [address] Chloride [Moles/Vol] 102 mmol/L Normal 98-109 [facility] Comment on above: Performed By: #### C BCA, CMP, , 1988-01 ####[facility] ([id number])[address] [place] [address] 64754#### 06931-8 ####[facility] ([id number])[address], [address], [place] [address] CO2 [Moles/Vol] 23 mmol/L Normal 22-32 [facility] Comment on above: Performed By: #### C BCA, CMP, 1988-01 ####[facility] ([id number])[address] [place] [address] 07360#### 49861-6 ####[facility] ([id number])[address], [address], [place] [address] Creatinine [Mass/Vol] 0.87 mg/dL Normal 0.70-1.20 [facility] Comment on above: Result Comment: METH OD TRACEABLE TO IDMS STANDARD Performed By: #### C JESSI [facility], 1988-01 ####[facility] ([id number])[address] [place] [address] 15586#### 17093-3 ####[facility] ([id number])[address] [address] eGFR (CKD-EPI) NON-RACE DEPENDENT >90 Normal >59 [facility] Comment on above: Result Comment: Repo rted eGFR is based on theCKD-EPI 2020 equation that doesnot use a race coefficient. Performed By: #### C JESSI [facility], 1988-01 ####[facility] ([id number])[address] [place] [address] 39183#### 94813-1 ####[facility] ([id number])[address] [address], [place] [address] Glucose [Mass/Vol] 157 mg/dL High 65-99 [facility] Comment on above: Performed By: #### C JESSI, [facility], 1988-01 ####[facility] ([id number])[address] [place] [address] 84977#### 98836-6 ####[facility] ([id number])[address] [address], [place] [address] Potassium [Moles/Vol] 4.1 mmol/L Normal 3.5-5.0 [facility] Comment on above: Performed By: #### C BCA, CMP, , 1988-01 ####[facility] ([id number])[address] [place] [address] 27695#### 99774-6 ####[facility] ([id number])[address], [address] [place] [address] Protein [Mass/Vol] 7.7 g/dL Normal 6.0-8.0 [facility] Comment on above: Performed By: #### C BCA, CMP, , 1988-01 ####[facility] ([id number])[address] [place] [address] 32041#### 35791-4 ####[facility] ([id number])[address], [address], [place] [address] Sodium [Moles/Vol] 132 mmol/L Low 134-146 [facility] Comment on above: Performed By: #### C BCA, CMP, , 1988-01 ####[facility] ([id number])[address] [place] [address] 70961#### 76096-9 ####[facility] ([id number])[address], [address], [place] [address] Urea nitrogen [Mass/Vol] 16 mg/dL Normal 5-23 [facility] Comment on above: Performed By: #### C BCA, CMP, , 1988-01 ####[facility] ([id number])[address] [place] [address] 80655#### 03772-5 ####[facility] ([id number])[address], [address], [place] [address] CRP [Mass/Vol]on 05-07-2024 C REACTIVE PROTEIN 11.6 mg/dL High 0.000-0.744 [facility] Comment on above: Performed By: #### Mary BOWEN [facility], , 1988-01 ####[facility] ([id number])[address] [place] [address] 84393#### 18289-5 ####[facility] ([id number])[address], [address] [place] [address] 05107 ESR Photometric method (Bld) [Velocity]on 05-07-2024 ESR, ERYTHROCYTE SEDIMENTATION RATE 68 mm/h High 0-15 [facility] Comment on above: Performed By: #### Mary BOWEN [facility], 1989-01 ####[facility] ([id number])[address] [place] [address] 39138#### 26067-3 ####[facility] ([id number])[address], [address] [place] [address] 10198 Glucose Glucometer (BldC) [M ass/Vol]on 05-07-2024 Glucose [Mass/Vol] 255 mg/dL High 65-99 [facility] Glucose [Mass/Vol] 305 mg/dL High 65-99 [facility] Glucose [Mass/Vol] 236 mg/dL High 65-99 [facility] MAGNESIUMon 05-07-2024 Magnesium [Mass/Vol] 2.1 mg/dL Normal 1.8-2.6 [facility] Comment on above: Performed By: #### Mary BOWEN [facility], 1988-01 ####[facility] ([id number])[address] [place] [address] 30970#### 44170-5 ####[facility] ([id number])[address], [address] [place] [address] 85474 MR FOOT RT W WO CONTon 05-07 MR FOOT RT W WO CONT Normal [facility] Vancomycin trough [Mass/Vol] on 05-07-2024 VANCOMYCIN TROUGH 13.4 ug/mL Normal 5.0-20.0 [facility] Comment on above: Performed By: #### 4 092-3 ####[facility] ([id number])[address] [place] [address] 04097 CBC AND AUTO DIFFon 05-06-20 24 Band form neutrophils/100 WBC (Bld) 1.0 % Normal [facility] Comment on above: Performed By: #### C JESSI [facility], , 1988-01 ####[facility] ([id number])[address] [place] [address] 85954#### 41890-9 ####[facility] ([id number])[address], [address] [place] [address] 00160 Eosinophils (Bld) [#/Vol] 0.2 10*3/uL Normal 0.0-0.4 [facility] Comment on above: Performed By: #### Mary BOWEN, [facility], , 1988-01 ####[facility] ([id number])[address] [place] [address] 73363#### 52816-9 ####[facility] ([id number])[address], [address] [place] [address] 17488 Eosinophils/100 WBC (Bld) 1.0 % Normal [facility] Comment on above: Performed By: #### Mary BOWEN, [facility], , 1988-01 ####[facility] ([id number])[address] [place] [address] 72044#### 49834-9 ####[facility] ([id number])[address], [address], [place] [address] Erythrocyte distribution width (RBC) [Ratio] 13.1 % Normal 11.5-15.0 [facility] Comment on above: Performed By: #### Mary BOWEN, [facility], , 1988-01 ####[facility] ([id number])[address] [place] [address] 76566#### 13108-0 ####[facility] ([id number])[address], [address] [place] [address] 79148 Hematocrit (Bld) [Volume fraction] 39.5 % Normal 39-49 [facility] Comment on above: Performed By: #### C JESSI [facility], , 1988-01 ####[facility] ([id number])[address] [place] [address] 32399#### 91860-1 ####[facility] ([id number])0 [facility], [address] [place] [address] 70713 Hemoglobin (Bld) [Mass/Vol] 13.5 g/dL Normal 13.0-17.0 [facility] Comment on above: Performed By: #### Mary BOWEN [facility], , 1988-01 ####[facility] ([id number])[address] [place] [address] 13688#### 40108-9 ####[facility] ([id number])[address], [address] [place] [address] 72429 Lymphocytes (Bld) [#/Vol] 1.7 10*3/uL Normal 1.0-3.5 [facility] Comment on above: Performed By: #### Mary BOWEN, [facility], , 1988-01 ####[facility] ([id number])[address] [place] [address] 87252#### 54279-9 ####[facility] ([id number])[address], [address] [place] [address] 32997 Lymphocytes/100 WBC (Bld) 11.0 % Normal [facility] Comment on above: Performed By: #### Mary BOWEN, CMP, , 1988-01 ####[facility] ([id number])[address] [place] [address] 93362#### 65890-3 ####[facility] ([id number])[address], [address], [place] [address] MCH (RBC) [Entitic mass] 31.9 pg Normal 27-34 [facility] Comment on above: Performed By: #### Mary BOWEN, CMP, , 1988-01 ####[facility] ([id number])[address] [place] [address] 42063#### 50861-2 ####[facility] ([id number])[address], [address] [place] [address] 91484 MCHC (RBC) [Mass/Vol] 34.1 g/dL Normal 32-36 [facility] Comment on above: Performed By: #### Mary BOWEN, [facility], , 1988-01 ####[facility] ([id number])[address] [place] [address] 00530#### 27131-3 ####[facility] ([id number])[address], [address] [place] [address] 56526 MCV (RBC) [Entitic vol] 94 fL Normal 80-100 [facility] Comment on above: Performed By: #### Mary BOWEN, CMP, , 1988-01 ####[facility] ([id number])[address] [place] [address] 68442#### 06321-4 ####[facility] ([id number])[address], [address], [place] [address] Monocytes (Bld) [#/Vol] 1.1 10*3/uL High 0-0.9 [facility] Comment on above: Performed By: #### Mary BOWEN [facility], , 1988-01 ####[facility] ([id number])[address] [place] [address] 70611#### 60399-3 ####[facility] ([id number])[address], [address], [place] [address] Monocytes/100 WBC (Bld) 7.0 % Normal [facility] Comment on above: Performed By: #### Mary BOWEN [facility], , 1988-01 ####[facility] ([id number])[address] [place] [address] 06409#### 89674-9 ####[facility] ([id number])[address], [address], [place] [address] Neutrophils (Bld) [#/Vol] 12.3 10*3/uL High 1.5-6.6 [facility] Comment on above: Performed By: #### Mary BOWEN [facility], , 1988-01 ####[facility] ([id number])[address] [place] [address] 27238#### 86915-4 ####[facility] ([id number])[address], [address], [place] [address] Platelet mean volume (Bld) [Entitic vol] 7.1 fL Normal 7-12 [facility] Comment on above: Performed By: #### Mary BOWEN [facility], , 1988-01 ####[facility] ([id number])[address] [place] [address] 10173#### 69368-7 ####[facility] ([id number])[address], [address], [place] [address] Platelets (Bld) [#/Vol] 351 10*3/uL Normal 150-450 [facility] Comment on above: Performed By: #### Mary BOWEN CMP, , 1988-01 ####[facility] ([id number])[address] [place] [address] 32604#### 26342-2 ####[facility] ([id number])[address], [place] [address] RBC COUNT 4.22 X10E12/L Normal 4.10-5.70 [facility] Comment on above: Performed By: #### Mary BOWEN [facility], , 1988-01 ####[facility] ([id number])[address] [place] [address] 28210#### 72498-6 ####[facility] ([id number])[address], [address] [place] [address] 43922 RBC morphology finding Nom (Bld) NORMAL Normal [facility] Comment on above: Performed By: #### Mary BOWEN [facility], , 1988-01 ####[facility] ([id number])[address] [place] [address] 93443#### 45368-2 ####[facility] ([id number])[address], [address] [place] [address] 09830 SEG NEUTROPHIL 80.0 % Normal [facility] Comment on above: Performed By: #### Mary BOWEN, CMP, , 1988-01 ####[facility] ([id number])[address] [place] [address] 21032#### 16274-7 ####[facility] ([id number])[address], [address], [place] [address] WBC (Bld) [#/Vol] 15.3 10*3/uL High 4.0-11.0 [facility] Comment on above: Performed By: #### C BCA, CMP, 1989-01 ####[facility] ([id number])[address] [place] [address] 70661#### [id number] ####[facility] ([id number])[address], [address], [place] [address] COMPREHENSIVE METABOLIC PANE Matthew 05-06-2024 Albumin [Mass/Vol] 3.4 g/dL Normal 3.2-5.3 [facility] Comment on above: Performed By: #### C BCA, CMP, 1989-01 ####[facility] ([id number])[address] [place] [address]66#### [id number] ####[facility] ([id number])[address], [address], [place] [address] ALP [Catalytic activity/Vol] 65 U/L Normal 39-130 [facility] Comment on above: Performed By: #### C BCA, CMP, 1989-01 ####[facility] ([id number])[address] [place] [address]805#### [id number] ####[facility] ([id number])[address], [address], [place] [address] ALT [Catalytic activity/Vol] 15 U/L Normal 0-40 [facility] Comment on above: Performed By: #### C BCA, CMP, 1989-01 ####[facility] ([id number])[address] [place] [address] 49942#### [id number] ####[facility] ([id number])[address] [address] Anion gap [Moles/Vol] 8 mmol/L Normal 5-15 [facility] Comment on above: Performed By: #### Mary BOWEN [facility], , 1989-01 ####[facility] ([id number])[address] [place] [address] 95686#### [id number] ####[facility] ([id number])[address], [address] [address] AST [Catalytic activity/Vol] 14 U/L Normal 0-41 [facility] [facility] Comment on above: Performed By: #### [facility], , 1989-01 ####[facility] ([id number])[address] [place] [address] 15111#### [id number] ####[facility] ([id number])0 [facility], [address], [place] [address] Bilirubin [Mass/Vol] 1.3 mg/dL High 0.3-1.2 [facility] Comment on above: Performed By: #### Mary [facility], , 1989-01 ####[facility] ([id number])[address] [place] [address] 33451#### [id number] ####[facility] ([id number])[address] [facility], [address], [place] [address] Calcium [Mass/Vol] 8.2 mg/dL Low 8.5-10.5 [facility] Comment on above: Performed By: #### Mary [facility], , 1989-01 ####[facility] ([id number])[address] [place] [address] 20267#### [id number] ####[facility] ([id number])[address] [facility], [address] [address] Chloride [Moles/Vol] 101 mmol/L Normal 98-109 [facility] Comment on above: Performed By: #### [facility], 1989-[facility] ####[facility] ([id number])[address] [place] [address] 88438#### [id number] ####[facility] ([id number])[address] [facility], [address] [place] [address] CO2 [Moles/Vol] 22 mmol/L Normal 22-32 [facility] Comment on above: Performed By: #### [facility], 1989-[facility] ####[facility] ([id number])[address] [place] [address] 95906#### [id number] ####[facility] ([id number])[address] [facility], [address] [place] [address] Creatinine [Mass/Vol] 1.02 mg/dL Normal 0.70-1.20 [facility] Comment on above: Result Comment: METH OD TRACEABLE TO IDMS STANDARD Performed By: #### [facility], 1989-[facility] ####[facility] ([id number])[address] [place] [address] 31325#### [id number] ####[facility] ([id number])[address] [facility], [address] [address] eGFR (CKD-EPI) NON-RACE DEPENDENT >90 Normal >59 [facility] Comment on above: Result Comment: Repo rted eGFR is based on theCKD-EPI 2020 equation that doesnot use a race coefficient. Performed By: #### [facility], 1989-01 ####[facility] ([id number])[address] [place] [address] 40328#### [id number] ####[facility] ([id number])[address], [address] [address] Glucose [Mass/Vol] 150 mg/dL High 65-99 [facility] Comment on above: Performed By: #### [facility], , 1989-01 ####[facility] ([id number])[address] [place] [address] 57109#### [id number] ####[facility] ([id number])0 [facility], [address] [place] [address] Potassium [Moles/Vol] 4.3 mmol/L Normal 3.5-5.0 [facility] Comment on above: Performed By: #### [facility], , 1989-01 ####[facility] ([id number])[address] [place] [address] 28372#### [id number] ####[facility] ([id number])[address] [facility], [address], [place] [address] Protein [Mass/Vol] 8.0 g/dL Normal 6.0-8.0 [facility] Comment on above: Performed By: #### [facility], , 1989-01 ####[facility] ([id number])[address] [place] [address] 91459#### [id number] ####[facility] ([id number])0 [facility], [address] [place] [address] Sodium [Moles/Vol] 131 mmol/L Low 134-146 [facility] Comment on above: Performed By: #### [facility], , 1989-01 ####[facility] ([id number])[address] [place] [address] 62324#### [id number] ####[facility] ([id number])[address], [address], [place] [address] Urea nitrogen [Mass/Vol] 17 mg/dL Normal 5-23 [facility] Comment on above: Performed By: #### [facility], , 1989-01 ####[facility] ([id number])[address] [place] [address] 74254#### [id number] ####[facility] ([id number])[address], [address] [place] [address] 29602 CRP [Mass/Vol]on 05-06-2024 C REACTIVE PROTEIN 13.9 mg/dL High 0.000-0.744 [facility] Comment on above: Performed By: #### [facility], , 1989-01 ####[facility] ([id number])[address] [place] [address] 19541#### [id number] ####[facility] ([id number])[address], [address] [address] [address] ANKLE RT W WO CONTon 04-19 CT ANKLE RT W WO CONT Normal [facility] CT FOOT RT W WO CONTon 05-06 CT FOOT RT W WO CONT Normal [facility] ESR Photometric method (Bld) [Velocity]on 05-06-2024 ESR, ERYTHROCYTE SEDIMENTATION RATE 97 mm/h High 0-15 [facility] Comment on above: Performed By: #### [facility], , 1989-01 ####[facility] ([id number])[address] [place] [address] 20039#### [id number] ####[facility] ([id number])[address], [address] [place] [address] Glucose Glucometer (BldC) [M ass/Vol]on 05-06-2024 Glucose [Mass/Vol] 239 mg/dL High 65-99 [facility] Glucose [Mass/Vol] 229 mg/dL High 65-99 [facility] Glucose [Mass/Vol] 223 mg/dL High 65-99 [facility] MAGNESIUMon 05-06-2024 Magnesium [Mass/Vol] 2.2 mg/dL Normal 1.8-2.6 [facility] Comment on above: Performed By: #### C ROSALIND BOWEN, , 1989-01 ####[facility] ([id number])[address] [place] [address] 96457#### [id number] ####[facility] ([id number])[address], [address] [place] [address] 68636 BLOOD CULTUREon 05-05-2024 Bacteria identified Aer cx Nom (Bld) SPECIMEN NOTES BLOOD CULTURE RESULTS NO GROWTH 5 DAYS Normal [facility] Comment on above: Performed By: #### 1 7928-3 ####[facility] ([id number])[address], [address], [place] [address] Bacteria identified Aer cx Nom (Bld) SPECIMEN NOTES BLOOD CULTURE RESULTS NO GROWTH 5 DAYS Normal [facility] Comment on above: Performed By: #### 1 7928-3 ####[facility] ([id number])[address], [address] [place] [address] 70105 CBC AND AUTO DIFFon 05-05-20 24 Eosinophils (Bld) [#/Vol] 0.2 10*3/uL Normal 0.0-0.4 [facility] Comment on above: Performed By: #### C ROSALIND BOWEN, 34163-6, 1989-01, 34042-7, ####[facility] ([id number])[address] [place] [address] 20976 Eosinophils/100 WBC (Bld) 1.0 % Normal [facility] Comment on above: Performed By: #### C EJSSI, CMP, , 1989-01, , ####[facility] ([id number])[address] [place] [address] 21696 Erythrocyte distribution width (RBC) [Ratio] 12.9 % Normal 11.5-15.0 [facility] Comment on above: Performed By: #### C JESSI, CMP, , 1989-01, , ####[facility] ([id number])[address] [place] [address] 27861 Hematocrit (Bld) [Volume fraction] 40.7 % Normal 39-49 [facility] Comment on above: Performed By: #### C JESSI, CMP, , 1989-01, , ####[facility] ([id number])[address] [place] [address] 51597 Hemoglobin (Bld) [Mass/Vol] 13.6 g/dL Normal 13.0-17.0 [facility] Comment on above: Performed By: #### C JESSI, CMP, , 1989-01, , ####[facility] ([id number])[address] [place] [address] 07022 Lymphocytes (Bld) [#/Vol] 1.2 10*3/uL Normal 1.0-3.5 [facility] Comment on above: Performed By: #### C BCA, CMP, , 1989-01, , ####[facility] ([id number])[address] [place] [address] 09463 Lymphocytes/100 WBC (Bld) 6.9 % Normal [facility] Comment on above: Performed By: #### C BCA, CMP, , 1989-01, , ####[facility] ([id number])[address] [place] [address] 36245 MCH (RBC) [Entitic mass] 31.5 pg Normal 27-34 [facility] Comment on above: Performed By: #### C JESSI, CMP, , 1989-01, , ####[facility] ([id number])[address] [place] [address] 00607 MCHC (RBC) [Mass/Vol] 33.4 g/dL Normal 32-36 [facility] Comment on above: Performed By: #### C ROSALIND BOWEN, , 1989-01, , ####[facility] ([id number])[address] [place] [address] 89042 MCV (RBC) [Entitic vol] 95 fL Normal 80-100 [facility] Comment on above: Performed By: #### C JESSI, CMP, , 1989-01, , ####[facility] ([id number])[address] [place] [address] 74277 Monocytes (Bld) [#/Vol] 1.5 10*3/uL High 0-0.9 [facility] Comment on above: Performed By: #### Mary BOWEN, CMP, , 1989-01, , ####[facility] ([id number])[address] [place] [address] 53817 Monocytes/100 WBC (Bld) 8.9 % Normal [facility] Comment on above: Performed By: #### C JESSI, CMP, , 1989-01, , ####[facility] ([id number])[address] [place] [address] 61774 Neutrophils (Bld) [#/Vol] 14.1 10*3/uL High 1.5-6.6 [facility] Comment on above: Performed By: #### C JESSI, CMP, , 1989-01, , ####[facility] ([id number])[address] [place] [address] 72807 Platelet mean volume (Bld) [Entitic vol] 7.3 fL Normal 7-12 [facility] Comment on above: Performed By: #### C JESSI, CMP, , 1989-01, , ####[facility] ([id number])[address] [place] [address] 25483 Platelets (Bld) [#/Vol] 335 10*3/uL Normal 150-450 [facility] Comment on above: Performed By: #### Mary BOWEN, CMP, , 1989-01, , ####[facility] ([id number])[address] [place] [address] 65376 RBC COUNT 4.31 X10E12/L Normal 4.10-5.70 [facility] Comment on above: Performed By: #### Mary BOWEN, CMP, , 1989-01, , ####[facility] ([id number])[address] [place] [address] 60095 SEG NEUTROPHIL 83.2 % Normal [facility] Comment on above: Performed By: #### Mary BCA, CMP, , 1989-01, , ####[facility] ([id number])[address] [place] [address] 43129 WBC (Bld) [#/Vol] 17.0 10*3/uL High 4.0-11.0 [facility] Comment on above: Performed By: #### C BCA, CMP, , 1989-01, 18135-2, ####[facility] ([id number])[address] [place] [address] 29010 COMPREHENSIVE METABOLIC PANE Matthew 05-05-2024 Albumin [Mass/Vol] 3.7 g/dL Normal 3.2-5.3 [facility] Comment on above: Performed By: #### C BCA, CMP, , 1989-01, , ####[facility] ([id number])[address] [place] [address] 31971 ALP [Catalytic activity/Vol] 70 U/L Normal 39-130 [facility] Comment on above: Performed By: #### C BCA, CMP, , 1989-01, , ####[facility] ([id number])[address] [place] [address] 07892 ALT [Catalytic activity/Vol] 16 U/L Normal 0-40 [facility] Comment on above: Performed By: #### C BCA, CMP, , 1989-01, , ####[facility] ([id number])[address] [place] [address] 46296 Anion gap [Moles/Vol] 7 mmol/L Normal 5-15 [facility] Comment on above: Performed By: #### C BCA, CMP, , 1989-01, 63174-6, ####[facility] ([id number])[address] [place] [address] 13275 AST [Catalytic activity/Vol] 13 U/L Normal 0-41 [facility] Comment on above: Performed By: #### C BCA, CMP, , 1989-01, 23666-7, ####[facility] ([id number])[address] [place] [address] 44821 Bilirubin [Mass/Vol] 1.2 mg/dL Normal 0.3-1.2 [facility] Comment on above: Performed By: #### C JESSI, CMP, , 1989-01, , ####[facility] ([id number])[address] [place] [address] 30878 Calcium [Mass/Vol] 8.5 mg/dL Normal 8.5-10.5 [facility] Comment on above: Performed By: #### C JESSI, CMP, , 1989-01, , ####[facility] ([id number])[address] [place] [address] 27019 Chloride [Moles/Vol] 103 mmol/L Normal 98-109 [facility] Comment on above: Performed By: #### C JESSI, ROSALIND, , 1989-01, , ####[facility] ([id number])[address] [place] [address] 10531 CO2 [Moles/Vol] 22 mmol/L Normal 22-32 [facility] Comment on above: Performed By: #### C JESSI, CMP, , 1989-01, , ####[facility] ([id number])[address] [place] [address] 66060 Creatinine [Mass/Vol] 0.95 mg/dL Normal 0.70-1.20 [facility] Comment on above: Result Comment: METH OD TRACEABLE TO IDMS STANDARD Performed By: #### C JESSI, CMP, , 1989-01, , ####[facility] ([id number])[address] [place] [address] 03200 eGFR (CKD-EPI) NON-RACE DEPENDENT >90 Normal >59 [facility] Comment on above: Result Comment: Repo rted eGFR is based on theD-EPI 2020 equation that doesnot use a race coefficient. Performed By: #### C ROSALIND BOWEN, , 1989-01, , ####[facility] ([id number])[address] [place] [address] 35440 Glucose [Mass/Vol] 83 mg/dL Normal 65-99 [facility] Comment on above: Performed By: #### C ROSALIND BOWEN, , 1989-01, , ####[facility] ([id number])[address] [place] [address] 28361 Potassium [Moles/Vol] 3.9 mmol/L Normal 3.5-5.0 [facility] Comment on above: Performed By: #### C ROSALIND BOWEN, , 1989-01, , ####[facility] ([id number])[address] [place] [address] 25507 Protein [Mass/Vol] 8.4 g/dL High 6.0-8.0 [facility] Comment on above: Performed By: #### C ROSALIND BOWEN, , 1989-01, , ####[facility] ([id number])[address] [place] [address] 23111 Sodium [Moles/Vol] 132 mmol/L Low 134-146 [facility] Comment on above: Performed By: #### C ROSALIND BOWEN, , 1989-01, , ####[facility] ([id number])[address] [place] [address] 03678 Urea nitrogen [Mass/Vol] 17 mg/dL Normal 5-23 [facility] Comment on above: Performed By: #### C ROSALIND BOWEN, , 1989-01, , 9 ####[facility] ([id number])[address] [place] [address] 17977 CRP [Mass/Vol]on 05-05-2024 C REACTIVE PROTEIN 15.9 mg/dL High 0.000-0.744 [facility] Comment on above: Performed By: #### C ROSALIND BOWEN, , 1989-01, , ####[facility] ([id number])[address] [place] [address] 72677 Glucose Glucometer (BldC) [M ass/Vol]on 05-05-2024 Glucose [Mass/Vol] 268 mg/dL High 65-99 [facility] Glucose [Mass/Vol] 111 mg/dL High 65-99 [facility] Lactate (P alta) [Moles/Vol]o n 05-05-2024 LACTATE W/REFLEX 1.2 mmol/L Normal 0.4-2.0 [facility] Comment on above: Result Comment: Resu lt did not trigger repeat Lactate,re-order if needed. Performed By: #### C ROSALIND BOWEN, , 1989-01, , ####[facility] ([id number])[address] [place] [address] 31959 MAGNESIUMon 05-05-2024 Magnesium [Mass/Vol] 2.2 mg/dL Normal 1.8-2.6 [facility] Comment on above: Performed By: #### C ROSALIND BOWEN, , 1989-01, , 9 ####[facility] ([id number])[address] [place] [address] 83148 XR FOOT RT MIN 3 VWSon 05-05 XR FOOT RT MIN 3 VWS Normal [facility] aPTT Coag (PPP) [Time]on aPTT Coag (Bld) [Time] 26 s Normal 26-37 [facility] Comment on above: Result Comment: NEW REFERENCE RANGE Performed By: #### C BCA, CMP, 31816-5, 1988-5, 78615-1, 42534-6 ####[facility] ([id number])[address] [place] [address], [place] [address] COMPREHENSIVE METABOLIC PANE Matthew 05-01-2024 Albumin [Mass/Vol] 4.1 g/dL Normal 3.2-5.3 [facility] Comment on above: Performed By: #### C MP ####[facility] ([id number])[address], [address] [address] ALP [Catalytic activity/Vol] 59 U/L Normal 39-130 [facility] Comment on above: Performed By: #### C MP ####[facility] ([id number])[address], [address], [place] [address] ALT [Catalytic activity/Vol] 9 U/L Normal 0-40 [facility] Comment on above: Performed By: #### C MP ####[facility] ([id number])[address], [address], [place] [address] Anion gap [Moles/Vol] 9 mmol/L Normal 5-15 [facility] Comment on above: Performed By: #### C MP ####[facility] ([id number])[address], [address] [place] [address] AST [Catalytic activity/Vol] 13 U/L Normal 0-41 [facility] Comment on above: Performed By: #### C MP ####[facility] ([id number])[address], [address], [place] [address] Bilirubin [Mass/Vol] 0.8 mg/dL Normal 0.3-1.2 [facility] Comment on above: Performed By: #### C MP ####[facility] ([id number])[address] [address], [place] [address] Calcium [Mass/Vol] 8.7 mg/dL Normal 8.5-10.5 [facility] Comment on above: Performed By: #### C MP ####[facility] ([id number])[address] [address], [place] [address] Chloride [Moles/Vol] 98 mmol/L Normal 98-109 [facility] Comment on above: Performed By: #### C MP ####[facility] ([id number])[address] [address], [place] [address] CO2 [Moles/Vol] 28 mmol/L Normal 22-32 [facility] Comment on above: Performed By: #### C MP ####[facility] ([id number])[address] [address], [place] [address] Creatinine [Mass/Vol] 1.01 mg/dL Normal 0.60-1.30 [facility] Comment on above: Result Comment: METH OD TRACEABLE TO IDMS STANDARD Performed By: #### C MP ####[facility] ([id number])[address] [address], [place] [address] eGFR (CKD-EPI) NON-RACE DEPENDENT >90 Normal >59 [facility] Comment on above: Result Comment: Repo rted eGFR is based on theCKD-EPI 2020 equation that doesnot use a race coefficient. Performed By: #### C MP ####[facility] ([id number])[address] [address], [place] [address] Glucose [Mass/Vol] 205 mg/dL High 65-99 [facility] Comment on above: Performed By: #### C MP ####[facility] ([id number])[address] [address], [place] [address] Potassium [Moles/Vol] 4.2 mmol/L Normal 3.5-5.0 [facility] Comment on above: Performed By: #### C MP ####[facility] ([id number])[address], [place] [address] Protein [Mass/Vol] 7.3 g/dL Normal 6.0-8.0 [facility] Comment on above: Performed By: #### C MP ####[facility] ([id number])[address], [place] [address] Sodium [Moles/Vol] 135 mmol/L Normal 134-146 [facility] Comment on above: Performed By: #### C MP ####[facility] ([id number])[address], [place] [address] Urea nitrogen [Mass/Vol] 14 mg/dL Normal 5-23 [facility] Comment on above: Performed By: #### C MP ####[facility] ([id number])[address], [address] [place] [address] 14902 MR CARDIAC FOR MORPH W WO CO Non 12-30-2023 MR CARDIAC FOR MORPH W WO CON MR CARDIAC FOR MORPH W WO CON STUDY: Cardiac MRI with and without contrast CLINICAL HISTORY: Heart failure. Reduced ejection fraction. Hypertension. COMPARISON: Cardiac catheterization 10/14/2023, echo complete 10/13/2023. TECHNIQUE: Cardiac MRI was performed utilizing gated steady state free precession imaging prior to and following the uneventful administration of 39 cc ProHance intravenous gadolinium contrast for evaluation of delayed myocardial enhancement. Multiplanar multisequence imaging was performed. FINDINGS: Image quality suboptimal due to PVCs, drowsiness. The left ventricle is normal in size. Global systolic left ventricular function is within normal limits. No evidence of focal wall motion abnormality. Left ventricular quantitative parameters as follows: Ejection Fraction estimated 25-30% (normal: male = 49-79 %; female = 52-79 %). End Diastolic Diameter is 58 mm (normal: Male: 42-62-mm, female = 39-59 mm). Stroke Volume 29 mL. End Diastolic Volume 159 mL (normal: male = 95-215 ml; female = 78-167 ml). End Systolic Volume 129 mL (normal: male = 25-85 ml, female = 21-64 ml). Anteroseptal wall thickness: 1.0 cm. Posterolateral wall thickness: 0.9 cm. Mild patchy mid wall left ventricular delayed myocardial enhancement. Suboptimal imaging due to motion artifact. Left atrium is normal in size. No evidence of mitral regurgitation. Right ventricle is normal in size. No focal right ventricular wall motion abnormality is identified. No evidence of fibrofatty infiltration of the right ventricular wall. Right atrium is normal in size. No evidence of tricuspid regurgitation. IMPRESSION: Significantly diminished left ventricular function, ejection fraction estimated 25-30%. Global hypokinesis. Left ventricular wall thickness, chamber size within normal limits. Mild LGE in a nonischemic pattern. Suboptimal imaging due to PVCs, patient motion. The exam was read in conjunction with Dr. Lujan of the cardiology Department. Finalized by Bib Fuller MD on 12/30/2023 3:56 PM Normal [facility] Glucose Glucometer (BldC) [M ass/Vol]on 11-28-2023 Glucose [Mass/Vol] 96 mg/dL 65 - 99 mg/dL [facility] Glucose [Mass/Vol] 92 mg/dL 65 - 99 mg/dL [facility] Glucose [Mass/Vol] 96 mg/dL Normal 65-99 [facility] Glucose [Mass/Vol] 92 mg/dL Normal 65-99 [facility] Glucose [Mass/Vol] 69 mg/dL 65 - 99 mg/dL [facility] Glucose [Mass/Vol] 69 mg/dL Normal 65-99 [facility] BASIC METABOLIC PANLon 11-15 Anion gap [Moles/Vol] 6 mmol/L Normal 5-15 [facility] Comment on above: Performed By: #### B MP ####[facility] ([id number])[address] [facility], [address] [place] [address] Calcium [Mass/Vol] 8.8 mg/dL Normal 8.5-10.5 [facility] Comment on above: Performed By: #### B MP ####[facility] ([id number])[address] [address] [address] Chloride [Moles/Vol] 104 mmol/L Normal 98-109 [facility] Comment on above: Performed By: #### B MP ####[facility] ([id number])[address] [address] [address] CO2 [Moles/Vol] 27 mmol/L Normal 22-32 [facility] Comment on above: Performed By: #### B MP ####[facility] ([id number])[address] [address], [place] [address] Creatinine [Mass/Vol] 1.01 mg/dL Normal 0.60-1.30 [facility] Comment on above: Result Comment: METH OD TRACEABLE TO IDMS STANDARD Performed By: #### B MP ####[facility] ([id number])[address] [address], [place] [address] eGFR (CKD-EPI) NON-RACE DEPENDENT >90 Normal >59 [facility] Comment on above: Result Comment: Repo rted eGFR is based on theCKD-EPI 2020 equation that doesnot use a race coefficient. Performed By: #### B MP ####[facility] ([id number])[address] [address] [address] Glucose [Mass/Vol] 173 mg/dL High 65-99 [facility] Comment on above: Performed By: #### B MP ####[facility] ([id number])[address] [address] [address] Potassium [Moles/Vol] 4.3 mmol/L Normal 3.5-5.0 [facility] Comment on above: Performed By: #### B MP ####[facility] ([id number])[address], [address], [place] [address] Sodium [Moles/Vol] 137 mmol/L Normal 134-146 [facility] Comment on above: Performed By: #### B MP ####[facility] ([id number])[address], [address], [place] [address] Urea nitrogen [Mass/Vol] 19 mg/dL Normal 5-23 [facility] Comment on above: Performed By: #### B MP ####[facility] ([id number])[address], [address], [place] [address] CBC AND AUTO DIFFon 10-17-19 24 ABSOLUTE BASOPHIL 0.1 X10E9/L Normal 0.0-0.2 [facility] Comment on above: Performed By: #### C BCA, CMP, 48510-4, 89989-1 #### [facility] ([id number]) [address], [address] [place] [address] ABSOLUTE NEUTROPHIL 5.4 X10E9/L Normal 1.5-6.[address] [facility] Comment on above: Performed By: #### C BCA, CMP, , 29559-1 #### [facility] ([id number]) [address] [address] [place] [address] Basophils/100 WBC (Bld) 0.7 % Normal [facility] Comment on above: Performed By: #### C BCA, CMP, , 74682-4 #### [facility] ([id number]) [address] [address] [place] [address] Eosinophils (Bld) [#/Vol] 0.2 10*3/uL Normal 0.0-0.4 [facility] Comment on above: Performed By: #### C BCA, CMP, , 64850-7 #### [facility] ([id number]) [address], [address] [place] [address] Eosinophils/100 WBC (Bld) 2.2 % Normal [facility] Comment on above: Performed By: #### C BCA, CMP, , 83726-8 #### [facility] ([id number]) [address], [facility] [address] [place] [address] Erythrocyte distribution width (RBC) [Ratio] 16.4 % High 11.5-15.0 [facility] Comment on above: Performed By: #### C BCA, CMP, , 46539-0 #### [facility] ([id number]) [address], [facility] [address] [place] [address] Hematocrit (Bld) [Volume fraction] 47.1 % Normal 39-49 [facility] Comment on above: Performed By: #### C BCA, CMP, , 72982-6 #### [facility] ([id number]) [address], [address] [place] [address] Hemoglobin (Bld) [Mass/Vol] 15.6 g/dL Normal 13.0-17.0 [facility] Comment on above: Performed By: #### C BCA, CMP, , 27164-6 #### [facility] ([id number]) [address], [facility] [address] [place] [address] Lymphocytes (Bld) [#/Vol] 1.5 10*3/uL Normal 1.0-3.5 [facility] Comment on above: Performed By: #### C BCA, CMP, , 54926-0 #### [facility] ([id number]) [address], [address] [place] [address] Lymphocytes/100 WBC (Bld) 19.5 % Normal [facility] Comment on above: Performed By: #### C BCA, CMP, , 08862-8 #### [facility] ([id number]) [address], [address] [place] [address] MCH (RBC) [Entitic mass] 29.1 pg Normal 27-34 [facility] Comment on above: Performed By: #### C BCA, CMP, 17691-1, 44556-7 #### [facility] ([id number]) [address], [address] [place] [address] MCHC (RBC) [Mass/Vol] 33.1 g/dL Normal 32-36 [facility] Comment on above: Performed By: #### C BCA, CMP, 29582-7, 79446-8 #### [facility] ([id number]) [address], [address] [place] [address] MCV (RBC) [Entitic vol] 88 fL Normal 80-100 [facility] Comment on above: Performed By: #### C BCA, CMP, 60668-5, 77858-8 #### [facility] ([id number]) [address], [address] [place] [address] Monocytes (Bld) [#/Vol] 0.7 10*3/uL Normal 0-0.9 [facility] Comment on above: Performed By: #### C BCA, CMP, 80879-0, 06930-2 #### [facility] ([id number]) [address], [address] [place] [address] Monocytes/100 WBC (Bld) 9.1 % Normal [facility] Comment on above: Performed By: #### C BCA, CMP, 84831-3, 92165-5 #### [facility] ([id number]) [address], [address] [place] [address] Neutrophils/100 WBC (Bld) 68.5 % Normal [facility] Comment on above: Performed By: #### C BCA, CMP, 88842-8, 24302-0 #### [facility] ([id number]) [address], [facility] [address] [place] [address] Platelet mean volume (Bld) [Entitic vol] 7.7 fL Normal 7-12 [facility] Comment on above: Performed By: #### C BCA, CMP, 60562-7, 12169-1 #### [facility] ([id number]) [address] [address] Platelets (Bld) [#/Vol] 308 10*3/uL Normal 150-450 [facility] Comment on above: Performed By: #### C BCA, CMP, , 34516-9 #### [facility] ([id number]) [address] [address] RBC COUNT 5.37 X10E12/L Normal 4.10-5.70 [facility] Comment on above: Performed By: #### Mary BCA, CMP, , 83027-5 #### [facility] ([id number]) [address] [address] WBC (Bld) [#/Vol] 7.9 10*3/uL Normal 4.0-11.0 [facility] Comment on above: Performed By: #### Mary BCA, CMP, , 71168-5 #### [facility] ([id number]) [address] [address] CBC auto differentialon 09-20 Basophils (Bld) [#/Vol] 0.1 10*3/uL [facility] Basophils/100 WBC (Bld) 0.7 % [facility] Eosinophils (Bld) [#/Vol] 0.2 10*3/uL [facility] Eosinophils/100 WBC (Bld) 2.2 % [facility] Erythrocyte distribution width (RBC) [Ratio] 16.4 % High 11.5 - 15.0 % [facility] Hematocrit (Bld) [Volume fraction] 47.1 % 39 - 49 % [place] Hemoglobin (Bld) [Mass/Vol] 15.6 g/dL 13.0 - 17.0 g/dL [place] Interpretation and review of laboratory results Abnormal [place] Lymphocytes (Bld) [#/Vol] 1.5 10*3/uL [facility] Lymphocytes/100 WBC (Bld) 19.5 % [facility] MCH (RBC) [Entitic mass] 29.1 pg 27 - 34 pg [place] MCHC (RBC) [Mass/Vol] 33.1 g/dL 32 - 36 g/dL [place] MCV (RBC) [Entitic vol] 88 fL 80 - 100 fL [facility] Monocytes (Bld) [#/Vol] 0.7 10*3/uL [facility] Monocytes/100 WBC (Bld) 9.1 % [facility] Neutrophils (Bld) [#/Vol] 5.4 10*3/uL [facility] Neutrophils/100 WBC (Bld) 68.5 % [place] Platelet mean volume (Bld) [Entitic vol] 7.7 fL 7 - 12 fL [place] Platelets (Bld) [#/Vol] 308 10*3/uL [place] RBC (Bld) [#/Vol] 5.37 10*6/uL [facility] WBC corrected for nucl RBC Auto (Bld) [#/Vol] 7.9 [facility] COMPREHENSIVE METABOLIC PANE Matthew 2023 Albumin [Mass/Vol] 3.6 g/dL Normal 3.2-5.3 [facility] Comment on above: Performed By: #### C BCA, CMP #### [facility] ([id number]) [address] [facility], [address] [place] [address] ALP [Catalytic activity/Vol] 123 U/L Normal 39-130 [facility] Comment on above: Performed By: #### C BCA, CMP #### [facility] ([id number]) [address] [facility], [address] [place] [address] ALT [Catalytic activity/Vol] 13 U/L Normal 0-40 [facility] Comment on above: Performed By: #### C BCA, CMP #### [facility] ([id number]) [address], [address] [place] [address] Anion gap [Moles/Vol] 8 mmol/L Normal 5-15 [facility] Comment on above: Performed By: #### C BCA, CMP #### [facility] ([id number]) [address], [address] [place] [address] AST [Catalytic activity/Vol] 16 U/L Normal 0-41 [facility] Comment on above: Performed By: #### C BCA, CMP #### [facility] ([id number]) [address], [address] [place] [address] Bilirubin [Mass/Vol] 0.9 mg/dL Normal 0.3-1.[address] [facility] Comment on above: Performed By: #### C BCA, CMP #### [facility] ([id number]) [address], [address] [place] [address] Calcium [Mass/Vol] 9.0 mg/dL Normal 8.5-10.5 [facility] Comment on above: Performed By: #### C BCA, CMP #### [facility] ([id number]) [address], [address] [place] [address] Chloride [Moles/Vol] 103 mmol/L Normal 98-[address] [facility] Comment on above: Performed By: #### C BCA, CMP #### [facility] ([id number]) [address], [address] [place] [address] CO2 [Moles/Vol] 22 mmol/L Normal 22-32 [facility] Comment on above: Performed By: #### C BCA, CMP #### [facility] ([id number]) [address], [address] [place] [address] Creatinine [Mass/Vol] 0.93 mg/dL Normal 0.60-1.30 [facility] Comment on above: Result Comment: METH OD TRACEABLE TO IDMS STANDARD Performed By: #### C BCA, CMP #### [facility] ([id number]) [address], [address] [place] [address] eGFR (CKD-EPI) NON-RACE DEPENDENT >90 Normal >59 [facility] Comment on above: Result Comment: Reported eGFR is based on the CKD-EPI 2020 equation that does not use a race coefficient. Performed By: #### C BCA, CMP #### [facility] ([id number]) [address] [address] [place] [address] Glucose [Mass/Vol] 160 mg/dL High 65-99 [facility] Comment on above: Performed By: #### C BCA, CMP #### [facility] ([id number]) [address] [address] [place] [address] Potassium [Moles/Vol] 4.7 mmol/L Normal 3.5-5.0 [facility] Comment on above: Performed By: #### C BCA, CMP #### [facility] ([id number]) [address], [address] [place] [address] Protein [Mass/Vol] 7.2 g/dL Normal 6.0-8.0 [facility] Comment on above: Performed By: #### C BCA, CMP #### [facility] ([id number]) [address] [address] [place] [address] Sodium [Moles/Vol] 133 mmol/L Low 134-146 [facility] Comment on above: Performed By: #### C BCA, CMP #### [facility] ([id number]) [address] [address] [place] [address] Urea nitrogen [Mass/Vol] 23 mg/dL Normal 5-23 [facility] Comment on above: Performed By: #### C BCA, CMP #### [facility] ([id number]) [address] [facility], [address] [place] [address] Comprehensive metabolic pane matthew 2023 Albumin [Mass/Vol] 3.6 g/dL 3.2 - 5.3 g/dL [place] ALP [Catalytic activity/Vol] 123 U/L 39 - 130 U/L [place] ALT No additional P-5'-P [Catalytic activity/Vol] 13 U/L 0 - 40 U/L [facility] Anion gap [Moles/Vol] 8 mmol/L 5 - 15 mmol/L [facility] AST [Catalytic activity/Vol] 16 U/L 0 - 41 U/L [facility] Bilirubin [Mass/Vol] 0.9 mg/dL 0.3 - 1 .2 mg/dL [facility] Calcium [Mass/Vol] 9.0 mg/dL 8.5 - 10. 5 mg/dL [facility] Chloride [Moles/Vol] 103 mmol/L 98 - 10 9 mmol/L [place] CO2 [Moles/Vol] 22 mmol/L 22 - 32 mmol/L [facility] Creatinine [Mass/Vol] 0.93 mg/dL 0.60 - 1.30 mg/dL [facility] Comment on above: METHOD TRACEABLE TO IDNY STANDARD eGFR (CKD-EPI)non-race dependent - PINF [facility] Comment on above: Reported eGFR is based on the CKD-EPI 2020 equation that does not use a race coefficient. Glucose [Mass/Vol] 160 mg/dL High 65 - 99 mg/dL [facility] Interpretation and review of laboratory results Abnormal [place] Potassium [Moles/Vol] 4.7 mmol/L 3.5 - 5.0 mmol/L [facility] Protein [Mass/Vol] 7.2 g/dL 6.0 - 8.0 g/dL [place] Sodium [Moles/Vol] 133 mmol/L Low 134 - 146 mmol/L [place] Urea nitrogen [Mass/Vol] 23 mg/dL 5 - 23 mg/dL [facility] Glucose Glucometer (BldC) [M ass/Vol]on 2023 Glucose [Mass/Vol] 177 mg/dL High 65-99 [facility] Glucose [Mass/Vol] 177 mg/dL High 65 - 99 mg/dL [facility] Interpretation and review of laboratory results Abnormal [facility] Glucose [Mass/Vol] 169 mg/dL High 65-99 [facility] Glucose [Mass/Vol] 169 mg/dL High 65 - 99 mg/dL [facility] Interpretation and review of laboratory results Abnormal [facility] Glucose [Mass/Vol] 191 mg/dL High 65-99 [facility] MAGNESIUMon 2023 Magnesium [Mass/Vol] 2.0 mg/dL Normal 1.8-2.[address] [facility] Comment on above: Performed By: #### C BCA, CMP #### [facility] ([id number]) [facility], [address] [place] [id number] Magnesiumon 2023 Magnesium [Mass/Vol] 2.0 mg/dL 1.8 - 2 .6 mg/dL [facility] Natriuretic peptide B [Mass/ Vol]on 2023 Interpretation and review of laboratory results Abnormal [facility] Natriuretic peptide B (Bld) [Mass/Vol] 217 pg/mL High NINF - 100.0 pg/mL [facility] Natriuretic peptide B (Bld) [Mass/Vol] 217 pg/mL High <100.0 [facility] Comment on above: Performed By: #### C BCA, CMP #### [facility] ([id number]) [address] [facility], [address] [place] [address] No Panel Informationon 10-17 [facility] Glucose Glucometer (BldC) [M ass/Vol]on 10-16-2023 Glucose [Mass/Vol] 191 mg/dL High 65 - 99 mg/dL [facility] Interpretation and review of laboratory results Abnormal [facility] Glucose [Mass/Vol] 214 mg/dL High 65-99 [facility] Glucose [Mass/Vol] 214 mg/dL High 65 - 99 mg/dL [facility] Interpretation and review of laboratory results Abnormal [facility] Glucose [Mass/Vol] 167 mg/dL High 65-99 [facility] Glucose [Mass/Vol] 167 mg/dL High 65 - 99 mg/dL [facility] Interpretation and review of laboratory results Abnormal [facility] Glucose [Mass/Vol] 227 mg/dL High 65-99 [facility] Glucose [Mass/Vol] 227 mg/dL High 65 - 99 mg/dL [facility] Interpretation and review of laboratory results Abnormal [facility] Glucose [Mass/Vol] 167 mg/dL High 65-99 [facility] Glucose [Mass/Vol] 167 mg/dL High 65 - 99 mg/dL [facility] Interpretation and review of laboratory results Abnormal [facility] CBC AND AUTO DIFFon 10-15-19 24 ABSOLUTE BASOPHIL 0.1 X10E9/L Normal 0.0-0.2 [facility] Comment on above: Performed By: #### C BCA, CMP #### [facility] ([id number]) [address], [address] [place] [address] ABSOLUTE NEUTROPHIL 6.8 X10E9/L High 1.5-6.[address] [facility] Comment on above: Performed By: #### C BCA, CMP #### [facility] ([id number]) [address], [address] [place] [address] Basophils/100 WBC (Bld) 0.6 % Normal [facility] Comment on above: Performed By: #### C BCA, CMP #### [facility] ([id number]) [address], [address] [place] [address] Eosinophils (Bld) [#/Vol] 0.1 10*3/uL Normal 0.0-0.4 [facility] Comment on above: Performed By: #### C BCA, CMP #### [facility] ([id number]) [address], [address] [place] [address] Eosinophils/100 WBC (Bld) 1.2 % Normal [facility] Comment on above: Performed By: #### C BCA, CMP #### [facility] ([id number]) [address], [address] [place] [address] Erythrocyte distribution width (RBC) [Ratio] 16.7 % High 11.5-15.0 [facility] Comment on above: Performed By: #### C JESSI, CMP #### [facility] ([id number]) [address] [address] [place] [address] Hematocrit (Bld) [Volume fraction] 49.3 % High 39-49 [facility] Comment on above: Performed By: #### C BCA, CMP #### [facility] ([id number]) [address] [address] [place] [address] Hemoglobin (Bld) [Mass/Vol] 16.0 g/dL Normal 13.0-17.0 [facility] Comment on above: Performed By: #### C BCA, CMP #### [facility] ([id number]) [address] [address] [place] [address] Lymphocytes (Bld) [#/Vol] 1.7 10*3/uL Normal 1.0-3.5 [facility] Comment on above: Performed By: #### C BCA, CMP #### [facility] ([id number]) [address], [address] [place] [address] Lymphocytes/100 WBC (Bld) 17.8 % Normal [facility] Comment on above: Performed By: #### C BCA, CMP #### [facility] ([id number]) [address], [address] [place] [address] MCH (RBC) [Entitic mass] 28.8 pg Normal 27-34 [facility] Comment on above: Performed By: #### C BCA, CMP #### [facility] ([id number]) [address], [address] [place] [address] MCHC (RBC) [Mass/Vol] 32.5 g/dL Normal 32-36 [facility] Comment on above: Performed By: #### C BCA, CMP #### [facility] ([id number]) [address], [address] [place] [address] MCV (RBC) [Entitic vol] 89 fL Normal 80-100 [facility] Comment on above: Performed By: #### C BCA, CMP #### [facility] ([id number]) [address], [address] [place] [address] Monocytes (Bld) [#/Vol] 1.0 10*3/uL High 0-0.9 [facility] Comment on above: Performed By: #### C BCA, CMP #### [facility] ([id number]) [address], [address] [place] [address] Monocytes/100 WBC (Bld) 10.6 % Normal [facility] Comment on above: Performed By: #### C BCA, CMP #### [facility] ([id number]) [address], [address] [place] [address] Neutrophils/100 WBC (Bld) 69.8 % Normal [facility] Comment on above: Performed By: #### C BCA, CMP #### [facility] ([id number]) [address] [address] [place] [address] Platelet mean volume (Bld) [Entitic vol] 7.6 fL Normal 7-12 [facility] Comment on above: Performed By: #### C BCA, CMP #### [facility] ([id number]) [address], [address] [place] [address] Platelets (Bld) [#/Vol] 314 10*3/uL Normal 150-450 [facility] Comment on above: Performed By: #### C BCA, CMP #### [facility] ([id number]) [address], [facility] [address] [place] [address] RBC COUNT 5.56 X10E12/L Normal 4.10-5.70 [facility] Comment on above: Performed By: #### C BCA, CMP #### [facility] ([id number]) [address], [address] [address] WBC (Bld) [#/Vol] 9.7 10*3/uL Normal 4.0-11.0 [facility] Comment on above: Performed By: #### C BCA, CMP #### [facility] ([id number]) [address], [address] [address] CBC auto differentialon 09-20 Basophils (Bld) [#/Vol] 0.1 10*3/uL [place] Basophils/100 WBC (Bld) 0.6 % [place] Eosinophils (Bld) [#/Vol] 0.1 10*3/uL [place] Eosinophils/100 WBC (Bld) 1.2 % [facility] Erythrocyte distribution width (RBC) [Ratio] 16.7 % High 11.5 - 15.0 % [facility] Hematocrit (Bld) [Volume fraction] 49.3 % High 39 - 49 % [facility] Hemoglobin (Bld) [Mass/Vol] 16.0 g/dL 13.0 - 17.0 g/dL [facility] Interpretation and review of laboratory results Abnormal [facility] Lymphocytes (Bld) [#/Vol] 1.7 10*3/uL [place] Lymphocytes/100 WBC (Bld) 17.8 % [place] MCH (RBC) [Entitic mass] 28.8 pg 27 - 34 pg [place] MCHC (RBC) [Mass/Vol] 32.5 g/dL 32 - 36 g/dL [facility] MCV (RBC) [Entitic vol] 89 fL 80 - 100 fL [facility] Monocytes (Bld) [#/Vol] 1.0 10*3/uL High [facility] Monocytes/100 WBC (Bld) 10.6 % [facility] Neutrophils (Bld) [#/Vol] 6.8 10*3/uL High [facility] Neutrophils/100 WBC (Bld) 69.8 % [facility] Platelet mean volume (Bld) [Entitic vol] 7.6 fL 7 - 12 fL [facility] Platelets (Bld) [#/Vol] 314 10*3/uL [facility] RBC (Bld) [#/Vol] 5.56 10*6/uL [facility] WBC corrected for nucl RBC Auto (Bld) [#/Vol] 9.7 [facility] COMPREHENSIVE METABOLIC PANE Matthew 10-15-2023 Albumin [Mass/Vol] 3.5 g/dL Normal 3.2-5.3 [facility] Comment on above: Performed By: #### C BCA, CMP #### [facility] ([id number]) [address] [facility], [address] [place] [address] ALP [Catalytic activity/Vol] 118 U/L Normal 39-130 [facility] Comment on above: Performed By: #### C BCA, CMP #### [facility] ([id number]) [address] [facility], [address] [place] [address] ALT [Catalytic activity/Vol] 14 U/L Normal 0-40 [facility] Comment on above: Performed By: #### C BCA, CMP #### [facility] ([id number]) [address] [facility], [address] [place] [address] Anion gap [Moles/Vol] 6 mmol/L Normal 5-15 [facility] Comment on above: Performed By: #### C BCA, CMP #### [facility] ([id number]) [address], [address] [place] [address] AST [Catalytic activity/Vol] 17 U/L Normal 0-41 [facility] Comment on above: Performed By: #### C BCA, CMP #### [facility] ([id number]) [address], [address] [place] [address] Bilirubin [Mass/Vol] 0.9 mg/dL Normal 0.3-1.[address] [facility] Comment on above: Performed By: #### C BCA, CMP #### [facility] ([id number]) [address], [address] [place] [address] Calcium [Mass/Vol] 9.3 mg/dL Normal 8.5-10.5 [facility] Comment on above: Performed By: #### C BCA, CMP #### [facility] ([id number]) [address], [address] [place] [address] Chloride [Moles/Vol] 103 mmol/L Normal 98-[address] [facility] Comment on above: Performed By: #### C BCA, CMP #### [facility] ([id number]) [address], [address] [place] [address] CO2 [Moles/Vol] 26 mmol/L Normal 22-32 [facility] Comment on above: Performed By: #### C BCA, CMP #### [facility] ([id number]) [address], [address] [place] [address] Creatinine [Mass/Vol] 1.02 mg/dL Normal 0.60-1.30 [facility] Comment on above: Result Comment: METH OD TRACEABLE TO IDMS STANDARD Performed By: #### C BCA, CMP #### [facility] ([id number]) [address], [address] [place] [address] eGFR (CKD-EPI) NON-RACE DEPENDENT >90 Normal >59 [facility] Comment on above: Result Comment: Reported eGFR is based on the CKD-EPI 2020 equation that does not use a race coefficient. Performed By: #### C BCA, CMP #### [facility] ([id number]) [address], [address] [place] [address] Glucose [Mass/Vol] 160 mg/dL High 65-99 [facility] Comment on above: Performed By: #### C BCA, CMP #### [facility] ([id number]) [address], [facility] [address] [place] [address] Potassium [Moles/Vol] 4.6 mmol/L Normal 3.5-5.0 [facility] Comment on above: Performed By: #### C BCA, CMP #### [facility] ([id number]) [address], [address] [place] [address] Protein [Mass/Vol] 7.4 g/dL Normal 6.0-8.0 [facility] Comment on above: Performed By: #### C BCA, CMP #### [facility] ([id number]) [address], [address] [place] [address] Sodium [Moles/Vol] 135 mmol/L Normal 134-146 [facility] Comment on above: Performed By: #### C BCA, CMP #### [facility] ([id number]) [address], [address] [place] [address] Urea nitrogen [Mass/Vol] 21 mg/dL Normal 5-23 [facility] Comment on above: Performed By: #### C BCA, CMP #### [facility] ([id number]) [address], [address] [place] [address] Comprehensive metabolic pane matthew 10-15-2023 Albumin [Mass/Vol] 3.5 g/dL 3.2 - 5.3 g/dL [place] ALP [Catalytic activity/Vol] 118 U/L 39 - 130 U/L [place] ALT No additional P-5'-P [Catalytic activity/Vol] 14 U/L 0 - 40 U/L [place] Anion gap [Moles/Vol] 6 mmol/L 5 - 15 mmol/L [place] AST [Catalytic activity/Vol] 17 U/L 0 - 41 U/L [place] Bilirubin [Mass/Vol] 0.9 mg/dL 0.3 - 1 .2 mg/dL [place] Calcium [Mass/Vol] 9.3 mg/dL 8.5 - 10. 5 mg/dL [place] Chloride [Moles/Vol] 103 mmol/L 98 - 10 9 mmol/L [place] CO2 [Moles/Vol] 26 mmol/L 22 - 32 mmol/L [place] Creatinine [Mass/Vol] 1.02 mg/dL 0.60 - 1.30 mg/dL [place] Comment on above: METHOD TRACEABLE TO [facility] STANDARD eGFR (CKD-EPI)non-race dependent - PINF [place] Comment on above: Reported eGFR is based on the CKD-EPI 2020 equation that does not use a race coefficient. Glucose [Mass/Vol] 160 mg/dL High 65 - 99 mg/dL [facility] Interpretation and review of laboratory results Abnormal [place] Potassium [Moles/Vol] 4.6 mmol/L 3.5 - 5.0 mmol/L [place] Protein [Mass/Vol] 7.4 g/dL 6.0 - 8.0 g/dL [place] Sodium [Moles/Vol] 135 mmol/L 134 - 146 mmol/L [place] Urea nitrogen [Mass/Vol] 21 mg/dL 5 - 23 mg/dL [facility] Glucose Glucometer (BldC) [M ass/Vol]on 10-15-2023 Glucose [Mass/Vol] 220 mg/dL High 65-99 [facility] Glucose [Mass/Vol] 220 mg/dL High 65 - 99 mg/dL [facility] Interpretation and review of laboratory results Abnormal [facility] Glucose [Mass/Vol] 231 mg/dL High 65-99 [facility] Glucose [Mass/Vol] 231 mg/dL High 65 - 99 mg/dL [facility] Interpretation and review of laboratory results Abnormal [facility] CBC AND AUTO DIFFon 10-14-19 ABSOLUTE BASOPHIL 0.1 X10E9/L Normal 0.0-0.2 [facility] Comment on above: Performed By: #### C FELICIANO, CBCA, ####[facility] ([id number])[address] [place] [address] ABSOLUTE NEUTROPHIL 7.4 X10E9/L High 1.5-6.6 [facility] Comment on above: Performed By: #### C FELICIANO, CBCA, ####[facility] ([id number])[address] [place] [address] Basophils/100 WBC (Bld) 1.1 % Normal [facility] Comment on above: Performed By: #### C MP, CBCA, ####[facility] ([id number])[address] [place] [address] Eosinophils (Bld) [#/Vol] 0.1 10*3/uL Normal 0.0-0.4 [facility] Comment on above: Performed By: #### C FELICIANO, CBCA, ####[facility] ([id number])[address] [place] [address] Eosinophils/100 WBC (Bld) 1.1 % Normal [facility] Comment on above: Performed By: #### C MP, CBCA, ####[facility] ([id number])[address] [place] [address] Erythrocyte distribution width (RBC) [Ratio] 16.8 % High 11.5-15.0 [facility] Comment on above: Performed By: #### C MP, CBCA, ####[facility] ([id number])[address] [place] [address] Hematocrit (Bld) [Volume fraction] 48.9 % Normal 39-49 [facility] Comment on above: Performed By: #### C FELICIANO CBCA, ####[facility] ([id number])[address] [place] [address] Hemoglobin (Bld) [Mass/Vol] 16.1 g/dL Normal 13.0-17.0 [facility] Comment on above: Performed By: #### C FELICIANO CBCA, ####[facility] ([id number])[address] [place] [address] Lymphocytes (Bld) [#/Vol] 1.7 10*3/uL Normal 1.0-3.5 [facility] Comment on above: Performed By: #### C FELICIANO CBCA, ####[facility] ([id number])[address] [place] [address] 00620 Lymphocytes/100 WBC (Bld) 16.1 % Normal [facility] Comment on above: Performed By: #### C FELICIANO, CBCA, ####[facility] ([id number])[address] [place] [address] 51454 MCH (RBC) [Entitic mass] 28.8 pg Normal 27-34 [facility] Comment on above: Performed By: #### C FELICIANO CBCA, ####[facility] ([id number])[address] [place] [address] 89779 MCHC (RBC) [Mass/Vol] 32.9 g/dL Normal 32-36 [facility] Comment on above: Performed By: #### C FELICIANO CBCA, ####[facility] ([id number])[address] [place] [address] 02029 MCV (RBC) [Entitic vol] 88 fL Normal 80-100 [facility] Comment on above: Performed By: #### C FELICIANO, CBCA, ####[facility] ([id number])[address] [place] [address] 18688 Monocytes (Bld) [#/Vol] 1.1 10*3/uL High 0-0.9 [facility] Comment on above: Performed By: #### C MP, CBCA, ####[facility] ([id number])[address] [place] [address] 56447 Monocytes/100 WBC (Bld) 10.1 % Normal [facility] Comment on above: Performed By: #### C FELICIANO, CBCA, ####[facility] ([id number])[address] [place] [address] 04872 Neutrophils/100 WBC (Bld) 71.6 % Normal [facility] Comment on above: Performed By: #### C FELICIANO, CBCA, ####[facility] ([id number])[address] [place] [address] 24327 Platelet mean volume (Bld) [Entitic vol] 7.8 fL Normal 7-12 [facility] Comment on above: Performed By: #### C FELICIANO, CBCA, ####[facility] ([id number])[address] [place] [address] 96205 Platelets (Bld) [#/Vol] 342 10*3/uL Normal 150-450 [facility] Comment on above: Performed By: #### C MP, CBCA, ####[facility] ([id number])[address] [place] [address] 86386 RBC COUNT 5.58 X10E12/L Normal 4.10-5.70 [facility] Comment on above: Performed By: #### C MP, CBCA, ####[facility] ([id number])[address] [place] [address] 23818 WBC (Bld) [#/Vol] 10.4 10*3/uL Normal 4.0-11.0 [facility] Comment on above: Performed By: #### C ZABRINA WIGGINS, ####[facility] ([id number])[address] [place] [address] 84490 COMPREHENSIVE METABOLIC PANE [facility] 10-14-2023 Albumin [Mass/Vol] 3.2 g/dL Normal 3.2-5.3 [facility] Comment on above: Performed By: #### C ZABRINA WIGGINS, ####[facility] ([id number])[address] [place] [address]57 ALP [Catalytic activity/Vol] 123 U/L Normal 39-130 [facility] Comment on above: Performed By: #### C ZABRINA WIGGINS, ####[facility] ([id number])[address] [place] [address] 53687 ALT [Catalytic activity/Vol] 19 U/L Normal 0-40 [facility] Comment on above: Performed By: #### C ZABRINA WIGGINS, ####[facility] ([id number])[address] [place] [address] 01115 Anion gap [Moles/Vol] 9 mmol/L Normal 5-15 [facility] Comment on above: Performed By: #### C ZABRINA WIGGINS, ####[facility] ([id number])[address] [place] [address] 01604 AST [Catalytic activity/Vol] 24 U/L Normal 0-41 [facility] Comment on above: Performed By: #### C FELICIANO CBCVeena, ####[facility] ([id number])[address] [place] [address] [place] [address] Bilirubin [Mass/Vol] 1.5 mg/dL High 0.3-1.2 [facility] Comment on above: Performed By: #### C ZABRINA WIGGINS, ####[facility] ([id number])[address] [place] [address] 99145 Calcium [Mass/Vol] 8.9 mg/dL Normal 8.5-10.5 [facility] Comment on above: Performed By: #### C ZABRINA WIGGINS, ####[facility] ([id number])[address] [place] [address] 82087 Chloride [Moles/Vol] 105 mmol/L Normal 98-109 [facility] Comment on above: Performed By: #### C ZABRINA WIGGINS, ####[facility] ([id number])[address] [place] [address] 29444 CO2 [Moles/Vol] 21 mmol/L Low 22-32 [facility] Comment on above: Performed By: #### C ZABRINA WIGGINS, ####[facility] ([id number])[address] [place] [address] 64739 Creatinine [Mass/Vol] 0.87 mg/dL Normal 0.70-1.20 [facility] Comment on above: Result Comment: METH OD TRACEABLE TO IDMS STANDARD Performed By: #### C ZABRINA WIGGINS, ####[facility] ([id number])[address] [place] [address] 64679 eGFR (CKD-EPI) NON-RACE DEPENDENT >90 Normal >59 [facility] Comment on above: Result Comment: Repo rted eGFR is based on theCKD-EPI 2020 equation that doesnot use a race coefficient. Performed By: #### C ZABRINA WIGGINS, ####[facility] ([id number])[address] [place] [address] 95041 Glucose [Mass/Vol] 162 mg/dL High 65-99 [facility] Comment on above: Performed By: #### C FELICIANO CBCA, ####[facility] ([id number])[address] [place] [address] 76724 Potassium [Moles/Vol] 4.1 mmol/L Normal 3.5-5.0 [facility] Comment on above: Performed By: #### C ZABRINA WIGGINS, ####[facility] ([id number])[address] [place] [address] 71294 Protein [Mass/Vol] 7.4 g/dL Normal 6.0-8.0 [facility] Comment on above: Performed By: #### C FELICIANO CBCA, ####[facility] ([id number])[address] [place] [address] 83315 Sodium [Moles/Vol] 135 mmol/L Normal 134-146 [facility] Comment on above: Performed By: #### C FELICIANO CBCA, ####[facility] ([id number])[address] [place] [address] 45706 Urea nitrogen [Mass/Vol] 15 mg/dL Normal 5-23 [facility] Comment on above: Performed By: #### C FELICIANO CBCA, ####[facility] ([id number])[address] [place] [address] 51439 Coronary angiography perform edon 10-14-2023 Conclusion: 1. Nonobstructive coronary artery disease. 2. Moderate to severely depressed left ventricular systolic function. Recommendation: 1. Medical therapy as needed. Risk factor modification 2. Electrophysiology evaluation Coronary Findings Diagnostic Dominance: Right Left Main: The vessel was visualized by angiography, is moderate in size and is angiographically normal. Left Anterior Descending: Left anterior descending artery has minimal irregularities without significant obstruction except for very far distally around the apex which appears to be atretic Ramus Intermedius: Ramus intermedius is small and normal Left Circumflex: Left circumflex coronary artery is a nondominant system which has minimal irregularities without significant obstruction Right Coronary Artery: Right coronary artery is a dominant vessel which has minimal irregularities without significant obstruction. Intervention No interventions have been documented. Left Ventricle The left ventricle is dilated. There is moderate to severe left ventricular systolic dysfunction. LV systolic pressure is normal. LV end diastolic pressure is normal. There are no wall motion abnormalities in the left ventricle. There is no evidence of mitral regurgitation. The outflow tract is normal. There was no gradient across aortic valve on left heart pullback. Estimated ejection fraction is 30%. Wall Motion The following segments are hypokinetic: mid anterior, mid inferior, basilar anterior, basilar inferior, apical anterior and apical inferior. XPER [email or web address] [facility] Radiology Study observation (narrative) [place] Glucose Glucometer (BldC) [M ass/Vol]on 10-14-2023 Glucose [Mass/Vol] 164 mg/dL High 65-99 [facility] MAGNESIUMon 10-14-2023 Magnesium [Mass/Vol] 1.8 mg/dL Normal 1.8-2.6 [facility] Comment on above: Performed By: #### C FELICIANO, CBCA, 17175-9 ####[facility] ([id number])[address] [place] [address] 15714 CBC AND AUTO DIFFon 10-13-19 24 ABSOLUTE BASOPHIL 0.1 X10E9/L Normal 0.0-0.2 [facility] Comment on above: Performed By: #### C FELICIANO, , 32614-1, CBCA ####[facility] ([id number])[address] [place] [address] 16809 ABSOLUTE NEUTROPHIL 10.1 X10E9/L High 1.5-6.6 [facility] Comment on above: Performed By: #### C FELICIANO, , 01668-2, CBCA ####[facility] ([id number])[address] [place] [address] 06879 Basophils/100 WBC (Bld) 0.5 % Normal [facility] Comment on above: Performed By: #### C FELICIANO, 96071-6, 97596-7, CBCA ####[facility] ([id number])[address] [place] [address] 42588 Eosinophils (Bld) [#/Vol] 0.1 10*3/uL Normal 0.0-0.4 [facility] Comment on above: Performed By: #### C FELICIANO, 53415-1, 92621-6, CBCA ####[facility] ([id number])[address] [place] [address] 82275 Eosinophils/100 WBC (Bld) 0.9 % Normal [facility] Comment on above: Performed By: #### C FELICIANO, , 43893-6, CBCA ####[facility] ([id number])[address] [place] [address] 39328 Erythrocyte distribution width (RBC) [Ratio] 16.8 % High 11.5-15.0 [facility] Comment on above: Performed By: #### C FELICIANO, 28846-5, 43317-5, CBCA ####[facility] ([id number])[address] [place] [address] 28852 Hematocrit (Bld) [Volume fraction] 49.0 % Normal 39-49 [facility] Comment on above: Performed By: #### C FELICIANO, 00800-5, 89000-4, CBCA ####[facility] ([id number])[address] [place] [address] 06903 Hemoglobin (Bld) [Mass/Vol] 15.8 g/dL Normal 13.0-17.0 [facility] Comment on above: Performed By: #### C FELICIANO, 92752-5, 78855-7, CBCA ####[facility] ([id number])[address] [place] [address] 62901 Lymphocytes (Bld) [#/Vol] 1.3 10*3/uL Normal 1.0-3.5 [facility] Comment on above: Performed By: #### C FELICIANO, , , CBCA ####[facility] ([id number])[address] [place] [address] 43439 Lymphocytes/100 WBC (Bld) 10.3 % Normal [facility] Comment on above: Performed By: #### C FELICIANO, , , CBCA ####[facility] ([id number])[address] [place] [address] 70924 MCH (RBC) [Entitic mass] 28.4 pg Normal 27-34 [facility] Comment on above: Performed By: #### C FELICIANO, , , CBCA ####[facility] ([id number])[address] [place] [address] 34053 MCHC (RBC) [Mass/Vol] 32.3 g/dL Normal 32-36 [facility] Comment on above: Performed By: #### C FELICIANO, , , CBCA ####[facility] ([id number])[address] [place] [address] 57372 MCV (RBC) [Entitic vol] 88 fL Normal 80-100 [facility] Comment on above: Performed By: #### C FELICIANO, , , CBCA ####[facility] ([id number])[address] [place] [address] 02992 Monocytes (Bld) [#/Vol] 1.0 10*3/uL High 0-0.9 [facility] Comment on above: Performed By: #### C FELICIANO, 76964-2, 95219-3, CBCA ####[facility] ([id number])[address] [place] [address] 57817 Monocytes/100 WBC (Bld) 8.1 % Normal [facility] Comment on above: Performed By: #### C MP, 10548-5, 33162-5, CBCA ####[facility] ([id number])[address] [place] [address] 74232 Neutrophils/100 WBC (Bld) 80.2 % Normal [facility] Comment on above: Performed By: #### C FELICIANO, 96870-6, 32122-3, CBCA ####[facility] ([id number])[address] [place] [address] 07124 Platelet mean volume (Bld) [Entitic vol] 7.8 fL Normal 7-12 [facility] Comment on above: Performed By: #### C MP, , 12663-6, CBCA ####[facility] ([id number])[address] [place] [address] 20213 Platelets (Bld) [#/Vol] 349 10*3/uL Normal 150-450 [facility] Comment on above: Performed By: #### C FELICIANO, 64549-5, 49644-9, CBCA ####[facility] ([id number])[address] [place] [address] 34141 RBC COUNT 5.57 X10E12/L Normal 4.10-5.70 [facility] Comment on above: Performed By: #### C FELICIANO, 69367-0, 70287-8, CBCA ####[facility] ([id number])[address] [place] [address] 20769 WBC (Bld) [#/Vol] 12.6 10*3/uL High 4.0-11.0 [facility] Comment on above: Performed By: #### C FELICIANO, , 45310-3, CBCA ####[facility] ([id number])[address] [place] [address] 32561 COMPREHENSIVE METABOLIC PANE Matthew 10-13-2023 Albumin [Mass/Vol] 3.4 g/dL Normal 3.2-5.3 [facility] Comment on above: Performed By: #### C FELICIANO, , , CBCA ####[facility] ([id number])[address] [place] [address] 28619 ALP [Catalytic activity/Vol] 123 U/L Normal 39-130 [facility] Comment on above: Performed By: #### C FELICIANO, , , CBCA ####[facility] ([id number])[address] [place] [address] 87114 ALT [Catalytic activity/Vol] 17 U/L Normal 0-40 [facility] Comment on above: Performed By: #### C FELICIANO, , , CBCA ####[facility] ([id number])[address] [place] [address] 63720 Anion gap [Moles/Vol] 8 mmol/L Normal 5-15 [facility] Comment on above: Performed By: #### C FELICIANO, , , CBCA ####[facility] ([id number])[address] [place] [address] 35904 AST [Catalytic activity/Vol] 24 U/L Normal 0-41 [facility] Comment on above: Performed By: #### C FELICIANO, , , CBCA ####[facility] ([id number])[address] [place] [address] 44348 Bilirubin [Mass/Vol] 1.4 mg/dL High 0.3-1.2 [facility] Comment on above: Performed By: #### C FELICIANO, 34581-4, 29486-5, CBCA ####[facility] ([id number])[address] [place] [address] 46125 Calcium [Mass/Vol] 9.0 mg/dL Normal 8.5-10.5 [facility] Comment on above: Performed By: #### C FELICIANO, , 62689-7, CBCA ####[facility] ([id number])[address] [place] [address] 68156 Chloride [Moles/Vol] 105 mmol/L Normal 98-109 [facility] Comment on above: Performed By: #### C FELICIANO, , 76090-9, CBCA ####[facility] ([id number])[address] [place] [address] 81709 CO2 [Moles/Vol] 22 mmol/L Normal 22-32 [facility] Comment on above: Performed By: #### C FELICIANO, , 52865-4, CBCA ####[facility] ([id number])[address] [place] [address] 49815 Creatinine [Mass/Vol] 0.91 mg/dL Normal 0.70-1.20 [facility] Comment on above: Result Comment: METH OD TRACEABLE TO IDMS STANDARD Performed By: #### C FELICIANO, 79397-9, 81463-6, CBCA ####[facility] ([id number])[address] [place] [address] 37919 eGFR (CKD-EPI) NON-RACE DEPENDENT >90 Normal >59 [facility] Comment on above: Result Comment: Repo rted eGFR is based on theCKD-EPI 2020 equation that doesnot use a race coefficient. Performed By: #### C FELICIANO, 15248-5, 31744-0, CBCA ####[facility] ([id number])[address] [place] [address] 52788 Glucose [Mass/Vol] 212 mg/dL High 65-99 [facility] Comment on above: Performed By: #### C FELICIANO, 73469-4, 25874-4, CBCA ####[facility] ([id number])[address] [place] [address] 23160 Potassium [Moles/Vol] 4.4 mmol/L Normal 3.5-5.0 [facility] Comment on above: Performed By: #### C FELICIANO, , 67072-8, CBCA ####[facility] ([id number])[address] [place] [address] 38486 Protein [Mass/Vol] 7.4 g/dL Normal 6.0-8.0 [facility] Comment on above: Performed By: #### Mary WIGGINS, , 27904-7, CBCA ####[facility] ([id number])[address] [place] [address] 52105 Sodium [Moles/Vol] 135 mmol/L Normal 134-146 [facility] Comment on above: Performed By: #### C FELICIANO, , 91373-9, CBCA ####[facility] ([id number])[address] [place] [address] 97666 Urea nitrogen [Mass/Vol] 16 mg/dL Normal 5-23 [facility] Comment on above: Performed By: #### C FELICIANO, , 09333-6, CBCA ####[facility] ([id number])[address] [place] [address] 29239 Glucose Glucometer (BldC) [M ass/Vol]on 10-13-2023 Glucose [Mass/Vol] 177 mg/dL High 65-99 [facility] Glucose [Mass/Vol] 174 mg/dL High 65-99 [facility] Glucose [Mass/Vol] 251 mg/dL High 65-99 [facility] MAGNESIUMon 10-13-2023 Magnesium [Mass/Vol] 1.9 mg/dL Normal 1.8-2.6 [facility] Comment on above: Performed By: #### [place], [address]-5, 03003-6, CBCA ####[facility] ([id number])[address] [place] [address] 69221 TROPONIN Ion 10-13-2023 Troponin I.cardiac [Mass/Vol] 0.03 ng/mL Normal 0.00-0.04 [facility] Comment on above: Performed By: #### C FELICIANO, , , CBCA ####[facility] ([id number])[address] [place] [address] 97275 CBC AND AUTO DIFFon 10-12-19 ABSOLUTE BASOPHIL 0.1 X10E9/L Normal 0.0-0.2 [facility] Comment on above: Performed By: #### C JESSI CMP, 5643-2, , 30622-8 ####[facility] ([id number])[address] [place] [address] 56105 ABSOLUTE NEUTROPHIL 7.8 X10E9/L High 1.5-6.6 [facility] Comment on above: Performed By: #### C JESSI, CMP, 5643-2, , 67669-4 ####[facility] ([id number])[address] [place] [address] 91297 Basophils/100 WBC (Bld) 1.3 % Normal [facility] Comment on above: Performed By: #### C BCA, CMP, 5643-2, , 04351-4 ####[facility] ([id number])[address] [place] [address] 91314 Eosinophils (Bld) [#/Vol] 0.2 10*3/uL Normal 0.0-0.4 [facility] Comment on above: Performed By: #### C JESSI, CMP, 5643-2, 44489-2, 30340-8 ####[facility] ([id number])[address] [place] [address] 96619 Eosinophils/100 WBC (Bld) 1.8 % Normal [facility] Comment on above: Performed By: #### C JESSI, CMP, 5643-2, , 24723-9 ####[facility] ([id number])[address] [place] [address] 90902 Erythrocyte distribution width (RBC) [Ratio] 16.8 % High 11.5-15.0 [facility] Comment on above: Performed By: #### C JESSI, CMP, 5643-2, 58003-7, 64929-4 ####[facility] ([id number])[address] [place] [address] 24591 Hematocrit (Bld) [Volume fraction] 46.5 % Normal 39-49 [facility] Comment on above: Performed By: #### C JESSI, CMP, 5643-2, , 77339-0 ####[facility] ([id number])[address] [place] [address] 36625 Hemoglobin (Bld) [Mass/Vol] 15.2 g/dL Normal 13.0-17.0 [facility] Comment on above: Performed By: #### C BCA, CMP, 5643-2, 77651-4, 14020-9 ####[facility] ([id number])[address] [place] [address] 28013 Lymphocytes (Bld) [#/Vol] 1.5 10*3/uL Normal 1.0-3.5 [facility] Comment on above: Performed By: #### C JESSI, CMP, 5643-2, , 56616-8 ####[facility] ([id number])[address] [place] [address] 00248 Lymphocytes/100 WBC (Bld) 13.8 % Normal [facility] Comment on above: Performed By: #### C ROSALIND BOWEN, 5643-2, 63576-8, 19913-8 ####[facility] ([id number])[address] [place] [address] 51674 MCH (RBC) [Entitic mass] 28.6 pg Normal 27-34 [facility] Comment on above: Performed By: #### C JESSI, ROSALIND, 5643-2, 19945-9, 01368-3 ####[facility] ([id number])[address] [place] [address] 92403 MCHC (RBC) [Mass/Vol] 32.7 g/dL Normal 32-36 [facility] Comment on above: Performed By: #### C ROSALIND BOWEN, 5643-2, , 80107-9 ####[facility] ([id number])[address] [place] [address] 61403 MCV (RBC) [Entitic vol] 88 fL Normal 80-100 [facility] Comment on above: Performed By: #### C ROSALIND BOWEN, 43-2, , 34744-8 ####[facility] ([id number])[address] [place] [address] 89528 Monocytes (Bld) [#/Vol] 0.9 10*3/uL Normal 0-0.9 [facility] Comment on above: Performed By: #### C JESSI, ROSALIND, 5643-2, , 90010-0 ####[facility] ([id number])[address] [place] [address] 54622 Monocytes/100 WBC (Bld) 8.7 % Normal [facility] Comment on above: Performed By: #### C ROSALIND BWOEN, 43-2, 99487-5, 75389-4 ####[facility] ([id number])[address] [place] [address] 24716 Neutrophils/100 WBC (Bld) 74.4 % Normal [facility] Comment on above: Performed By: #### C BCA, CMP, 5643-2, 01680-1, 25807-7 ####[facility] ([id number])[address] [place] [address] 93759 Platelet mean volume (Bld) [Entitic vol] 7.4 fL Normal 7-12 [facility] Comment on above: Performed By: #### C BCA, CMP, 5643-2, 82314-5, 60917-1 ####[facility] ([id number])[address] [place] [address] 78378 Platelets (Bld) [#/Vol] 332 10*3/uL Normal 150-450 [facility] Comment on above: Performed By: #### C BCA, CMP, 5643-2, 26239-9, 82413-4 ####[facility] ([id number])[address] [place] [address] 58864 RBC COUNT 5.30 X10E12/L Normal 4.10-5.70 [facility] Comment on above: Performed By: #### C BCA, CMP, 5643-2, 29922-4, 83435-0 ####[facility] ([id number])[address] [place] [address] 73405 WBC (Bld) [#/Vol] 10.5 10*3/uL Normal 4.0-11.0 [facility] Comment on above: Performed By: #### C BCA, CMP, 5643-2, 31622-5, 92094-6 ####[facility] ([id number])[address] [place] [address] 17351 COMPREHENSIVE METABOLIC PANE Matthew 10-12-2023 Albumin [Mass/Vol] 3.5 g/dL Normal 3.2-5.3 [facility] Comment on above: Performed By: #### C BCA, CMP, 5643-2, 18967-4, 51868-7 ####[facility] ([id number])[address] [place] [address] 94638 ALP [Catalytic activity/Vol] 124 U/L Normal 39-130 [facility] Comment on above: Performed By: #### C BCA, CMP, 5643-2, 46196-7, 51525-0 ####[facility] ([id number])[address] [place] [address] 54304 ALT [Catalytic activity/Vol] 19 U/L Normal 0-40 [facility] Comment on above: Performed By: #### C BCA, CMP, 5643-2, 66994-9, 79194-5 ####[facility] ([id number])[address] [place] [address] [place] [address] Anion gap [Moles/Vol] 6 mmol/L Normal 5-15 [facility] Comment on above: Performed By: #### C BCA, CMP, 5643-2, 54886-3, 10784-1 ####[facility] ([id number])[address] [place] [address] 75620 AST [Catalytic activity/Vol] 27 U/L Normal 0-41 [facility] Comment on above: Performed By: #### C BCA, CMP, 5643-2, 62289-6, 69151-0 ####[facility] ([id number])[address] [place] [address] 84825 Bilirubin [Mass/Vol] 0.7 mg/dL Normal 0.3-1.2 [facility] Comment on above: Performed By: #### C BCA, CMP, 5643-2, 71121-5, 50733-5 ####[facility] ([id number])[address] [place] [address] 60068 Calcium [Mass/Vol] 8.7 mg/dL Normal 8.5-10.5 [facility] Comment on above: Performed By: #### C JESSI, CMP, 5643-2, , 40766-0 ####[facility] ([id number])[address] [place] [address] 07709 Chloride [Moles/Vol] 102 mmol/L Normal 98-109 [facility] Comment on above: Performed By: #### C JESSI, ROSALIND, 5642-, , 82553-3 ####[facility] ([id number])[address] [place] [address] 22695 CO2 [Moles/Vol] 23 mmol/L Normal 22-32 [facility] Comment on above: Performed By: #### C JESSI, ROSALIND, 43-2, , 58659-5 ####[facility] ([id number])[address] [place] [address] 22204 Creatinine [Mass/Vol] 1.07 mg/dL Normal 0.70-1.20 [facility] Comment on above: Result Comment: METH OD TRACEABLE TO IDMS STANDARD Performed By: #### C JESSI, ROSALIND, 43-2, , 36721-0 ####[facility] ([id number])[address] [place] [address] 48465 GFR/1.73 sq M.predicted among non-blacks MDRD (S/P/Bld) [Vol rate/Area] 88 mL/min/{1.73_m2} Normal >59 [facility] Comment on above: Result Comment: Repo rted eGFR is based on theCKD-EPI 2020 equation that doesnot use a race coefficient. Performed By: #### C BCA, CMP, 5643-2, , 75224-9 ####[facility] ([id number])[address] [place] [address] [place] [address] Glucose [Mass/Vol] 223 mg/dL High 65-99 [facility] Comment on above: Performed By: #### C BCA, CMP, 5643-2, 91466-5, 14440-2 ####[facility] ([id number])[address] [place] [address] 39233 Potassium [Moles/Vol] 4.7 mmol/L Normal 3.5-5.0 [facility] Comment on above: Performed By: #### C JESSI, CMP, 5643-2, 16093-7, 23170-8 ####[facility] ([id number])[address] [place] [address] 10882 Protein [Mass/Vol] 7.7 g/dL Normal 6.0-8.0 [facility] Comment on above: Performed By: #### C BCA, CMP, 5643-2, 24564-0, 09715-6 ####[facility] ([id number])[address] [place] [address] 88561 Sodium [Moles/Vol] 131 mmol/L Low 134-146 [facility] Comment on above: Performed By: #### C JESSI, CMP, 5643-2, 63072-5, 14130-3 ####[facility] ([id number])[address] [place] [address] [place] [address] Urea nitrogen [Mass/Vol] 23 mg/dL Normal 5-23 [facility] Comment on above: Performed By: #### C BCA, CMP, 5643-2, 98265-1, 73397-6 ####[facility] ([id number])[address] [place] [address], [place] [address] [address] CONT[address] CT BRAIN WO CONT Normal [facility] CT CERVICAL SPINE WO CONTon 10-12-2023 CT CERVICAL SPINE WO CONT Normal [facility] DRUG SCREEN, URINEon 024 AMPHETAMINE/METHAMP Negative Normal NEG [facility] Comment on above: Result Comment: AMPH /METH screening cut off = 1000 ng/mL Performed By: #### D UPTON ####[facility] ([id number])[address] [place] [address] 25186 BARBITURATES Negative Normal NEG [facility] Comment on above: Result Comment: Rayne iturates screening cut off value = 200 ng/mL Performed By: #### D UPTON ####[facility] ([id number])[address] [place] [address] 43221 BENZODIAZEPINES Negative Normal NEG [facility] Comment on above: Result Comment: Matthew odiazepines screening cut off value = 200 ng/mL Performed By: #### D UPTON ####[facility] ([id number])[address] [place] [address] 01557 CANNABINOIDS Positive Abnormal NEG [facility] Comment on above: Result Comment: Conf irmation available upon request.Cannabinoids/THC screening cut off value = 50 ng/mL Performed By: #### D UPTON ####[facility] ([id number])[address] [place] [address] 49478 COCAINE METABOLITE Positive Abnormal NEG [facility] Comment on above: Result Comment: Conf irmation available upon request.Cocaine screening cut off value = 300 ng/mL Performed By: #### D UPTON ####[facility] ([id number])[address] [place] [address] 55883 ECSTASY Negative Normal NEG [facility] Comment on above: Result Comment: Ecst asy screening cut off value = 500 ng/mLThis report is intended for use in clinicalmonitoring or management of patients. Performed By: #### D UPTON ####[facility] ([id number])[address] [place] [address] 40925 METHADONE Negative Normal NEG [facility] Comment on above: Result Comment: Meth adone screening cut off value = 300 ng/mL. Performed By: #### D UPTON ####[facility] ([id number])[address] [place] [address] 51101 OPIATES Negative Normal NEG [facility] Comment on above: Result Comment: Opia bill screening cut off value = 300 ng/mLNOTE:This test is used for the detection ofcodeine, hydrocodone (>1000 ng/mL), morphineand hydromorphone (>900 ng/mL) in urine. Performed By: #### D UPTON ####[facility] ([id number])[address] [place] [address] 37794 OXYCODONE Negative Normal NEG [facility] Comment on above: Result Comment: Oxyc odone screening cut off value = 300 ng/mLNOTE:This test is used for the detection ofoxycodone and oxymorphone in urine. Performed By: #### D UPTON ####[facility] ([id number])[address] [place] [address] 28723 PHENCYCLIDINE Negative Normal [facility] Comment on above: Result Comment: Phen cyclidine screening cut off value = 25 ng/mL Performed By: #### D UPTON ####[facility] ([id number])[address] [place] [address] 98797 ETHANOLon 10-12-2023 Ethanol [Mass/Vol] mg/dL Normal 0.00-0.08 [facility] Comment on above: Result Comment: This report is intended for use in clinicalmonitoring or management of patients. Performed By: #### C BCA, CMP, 5643-2, 28378-0, 12072-6 ####[facility] ([id number])[address] [place] [address] 11754 Glucose Glucometer (BldC) [M ass/Vol]on 01-24-2024 Glucose [Mass/Vol] 190 mg/dL High 65-99 [facility] Glucose [Mass/Vol] 171 mg/dL High 65-99 [facility] MAGNESIUMon 10-12-2023 Magnesium [Mass/Vol] 2.2 mg/dL Normal 1.8-2.6 [facility] Comment on above: Performed By: #### C ROSALIND BOWEN, 5643-2, 23407-0, 49091-7 ####[facility] ([id number])[address] [place] [address] 98630 TROPONIN Ion 10-12-2023 Troponin I.cardiac [Mass/Vol] 0.03 ng/mL Normal 0.00-0.04 [facility] Comment on above: Performed By: #### 1 0839-9 ####[facility] ([id number])[address] [place] [address] 25470 Troponin I.cardiac [Mass/Vol] 0.02 ng/mL Normal 0.00-0.04 [facility] Comment on above: Performed By: #### C ROSALIND BOWEN, 5643-2, , 96304-4 ####[facility] ([id number])[address] [place] [address] 23153 XR CHEST 1 VWon 10-12-2023 XR CHEST 1 VW Normal [facility] XR PELVIS 1 OR 2 VWSon 10-12 XR PELVIS 1 OR 2 VWS Normal [facility] XR SHOULDER RT MIN 2 VWSon 0 10-12-2023 XR SHOULDER RT MIN 2 VWS Normal [facility] COMPREHENSIVE METABOLIC PANE Matthew 10-04-2023 Albumin [Mass/Vol] 3.4 g/dL Normal 3.2-5.3 [facility] Comment on above: Performed By: #### 3 0934-4 ####[facility] ([id number])[address] [place] [address] 73721#### CMP, 93408-9, 90160-8, 2776-1, TSHR ####[facility] ([id number])[address] [facility], [address] [place] [address] 05347 ALP [Catalytic activity/Vol] 159 U/L High 39-130 [facility] Comment on above: Performed By: #### 3 0934-4 ####[facility] ([id number])[address] [place] [address] 77362#### CMP, 30138-5, , 2776-09, TSHR ####[facility] ([id number])[address] [facility], [address] [place] [address] 93385 ALT [Catalytic activity/Vol] 22 U/L Normal 0-40 [facility] Comment on above: Performed By: #### 3 0934-4 ####[facility] ([id number])[address] [place] [address] 61407#### CMP, 90851-3, , 2776-09, TSHR ####[facility] ([id number])[address] [facility], [address] [place] [address] 06007 Anion gap [Moles/Vol] 7 mmol/L Normal 5-15 [facility] Comment on above: Performed By: #### 3 0934-4 ####[facility] ([id number])[address] [place] [address] 21311#### CMP, 46747-6, , 2776-09, TSHR ####[facility] ([id number])[address] [facility], [address] [place] [address] 62567 AST [Catalytic activity/Vol] 24 U/L Normal 0-41 [facility] Comment on above: Performed By: #### 3 0934-4 ####[facility] ([id number])[address] [place] [address] 32196#### CMP, 52753-9, 56819-8, 2776-1, TSHR ####[facility] ([id number])[address], [address] [place] [address] 65014 Bilirubin [Mass/Vol] 0.7 mg/dL Normal 0.3-1.2 [facility] Comment on above: Performed By: #### 3 0934-4 ####[facility] ([id number])[address] [place] [address] 44638#### CMP, 68442-9, 30980-6, 2776-, TSHR ####[facility] ([id number])[address] [facility], [address] [place] [address] 83453 Calcium [Mass/Vol] 8.8 mg/dL Normal 8.5-10.5 [facility] Comment on above: Performed By: #### 3 0934-4 ####[facility] ([id number])[address] [place] [address] 82313#### CMP, 77033-5, 07604-1, 2776-, TSHR ####[facility] ([id number])[address] [facility], [address] [place] [address] 00484 Chloride [Moles/Vol] 102 mmol/L Normal 98-109 [facility] Comment on above: Performed By: #### 3 0934-4 ####[facility] ([id number])[address] [place] [address] 94928#### CMP, 88954-7, 74822-7, 2776-1, TSHR ####[facility] ([id number])[address], [address] [place] [address] 80758 CO2 [Moles/Vol] 31 mmol/L Normal 22-32 [facility] Comment on above: Performed By: #### 3 0934-4 ####[facility] ([id number])[address] [place] [address] 29963#### CMP, 69497-3, , 2776-09, TSHR ####[facility] ([id number])[address], [address], [place] [address] Creatinine [Mass/Vol] 1.79 mg/dL High 0.60-1.30 [facility] Comment on above: Result Comment: METH OD TRACEABLE TO IDMS STANDARD Performed By: #### 3 0934-4 ####[facility] ([id number])[address] [place] [address] 93504#### ROSALIND, 65715-5, , 2776-09, TSHR ####[facility] ([id number])[address] [facility], [address] [place] [address] 36528 GFR/1.73 sq M.predicted among non-blacks MDRD (S/P/Bld) [Vol rate/Area] 48 mL/min/{1.73_m2} Low >59 [facility] Comment on above: Result Comment: Repo rted eGFR is based on theCKD-EPI 2020 equation that doesnot use a race coefficient. Performed By: #### 3 0934-4 ####[facility] ([id number])[address] [place] [address] 08984#### ROSALIND, 87978-4, , 2776-09, TSHR ####[facility] ([id number])[address], [address] [place] [address] 53278 Glucose [Mass/Vol] 148 mg/dL High 65-99 [facility] Comment on above: Performed By: #### 3 0934-4 ####[facility] ([id number])[address] [place] [address] 28634#### CMP, 95837-6, , 2776-09, TSHR ####[facility] ([id number])[address], [address], [place] [address] Potassium [Moles/Vol] 4.6 mmol/L Normal 3.5-5.0 [facility] Comment on above: Performed By: #### 3 0934-4 ####[facility] ([id number])[address] [place] [address] 59029#### CMP, 27187-3, 60716-1, 2776-09, TSHR ####[facility] ([id number])[address] [facility], [address] [place] [address] Protein [Mass/Vol] 7.3 g/dL Normal 6.0-8.0 [facility] Comment on above: Performed By: #### 3 0934-4 ####[facility] ([id number])[address] [place] [address]2818#### CMP, 23213-9, , 2776-09, TSHR ####[facility] ([id number])[address], [address] [place] [address]99 Sodium [Moles/Vol] 140 mmol/L Normal 134-146 [facility] Comment on above: Performed By: #### 3 0934-4 ####[facility] [facility] ([id number])[address] [place] [address] 32014#### CMP, 00163-8, , 2776-09, TSHR ####[facility] ([id number])[address], [address] [place] [address]09 Urea nitrogen [Mass/Vol] 19 mg/dL Normal 5-23 [facility] Comment on above: Performed By: #### 3 0934-4 ####[facility] ([id number])[address] [place] [address] 83150#### CMP, 82272-3, 26377-5, 2776-1, TSHR ####[facility] ([id number])[address] [place] [address] HGB A1C (GLYCO-HGB)on 2023 Glucose [Mass/Vol] 220 mg/dL Normal [facility] Comment on above: Performed By: #### 3 0934-4 ####[facility] ([id number])[address] [place] [address] 33559#### CMP, 58165-5, 42153-0, 2776-, TSHR ####[facility] ([id number])[address] [place] [address] 93695 HbA1c (Bld) [Mass fraction] 9.3 % High 4.4-5.6 [facility] Comment on above: Result Comment: NOTE ADA Guidelines Result HgbA1c Normal : less than 5.7 % Prediabetes : 5.7 % to 6.4 % Diabetes : > 6.4 %Use with caution in patients with abnormal hemoglobin variants asthe half-life of red blood cells and in vivo glycation rates areaffected. Performed By: #### 3 0934-4 ####[facility] ([id number])[address] [place] [address] 85581#### CMP, 49690-0, 31066-4, 2776-09, TSHR ####[facility] ([id number])[address] [place] [address] 97284 Lipid 1996 panelon 4 Cholesterol [Mass/Vol] 118 mg/dL Low 150-200 [facility] Comment on above: Performed By: #### 3 0934-4 ####[facility] ([id number])[address] [place] [address] 29101#### CMP, 23408-1, , 2776-09, TSHR ####[facility] ([id number])[address] [address] Cholesterol in HDL [Mass/Vol] 46 mg/dL Normal >39 [facility] Comment on above: Result Comment: HDL <40 mg/dL - High RiskHDL > or = 40mg/dL- DesirableHDL >60 mg/dL - Negative Risk Performed By: #### 3 0934-4 ####[facility] ([id number])[address] [place] [address] 14548#### ROSALIND, 12609-5, , 2776-09, TSHR ####[facility] ([id number])[address] [address] Cholesterol in LDL [Mass/Vol] 51 mg/dL Normal <130 [facility] Comment on above: Result Comment: LDL <100 mg/dL - DesirableLDL >160 mg/dL - High Risk Performed By: #### 3 0934-4 ####[facility] ([id number])[address] [place] [address] 54303#### ROSALIND, 65104-3, , 1, TSHR ####[facility] ([id number])[address] [address] Cholesterol in VLDL [Mass/Vol] 21 mg/dL Normal 0-30 [facility] Comment on above: Performed By: #### 3 0934-4 ####[facility] ([id number])[address] [place] [address] 84378#### CMP, 70791-6, 76055-0, 2776-09, TSHR ####[facility] ([id number])[address], [address] [place] [address] 16068 CHOLESTEROL:HDL 2.6 Normal 1.0-5.0 [facility] Comment on above: Performed By: #### 3 0934-4 ####[facility] ([id number])[address] [place] [address] 49291#### CMP, 07846-9, , 2776-09, TSHR ####[facility] ([id number])[address], [address] [place] [address]606 Triglyceride [Mass/Vol] 105 mg/dL Normal 27-150 [facility] Comment on above: Performed By: #### 3 0934-4 ####[facility] ([id number])[address] [place] [address] 66572#### CMP, 86759-9, , 2776-09, TSHR ####[facility] ([id number])[address], [address] [place] [address] 26097 MAGNESIUMon 10-04-2023 Magnesium [Mass/Vol] 2.1 mg/dL Normal 1.8-2.6 [facility] Comment on above: Performed By: #### 3 0934-4 ####[facility] ([id number])[address] [place] [address] 88081#### CMP, 21515-7, , 2776-09, TSHR ####[facility] ([id number])[address], [address] [place] [address] 45229 Natriuretic peptide B [Mass/ Vol]on 10-04-2023 Natriuretic peptide B (Bld) [Mass/Vol] 811 pg/mL High <100.0 [facility] Comment on above: Performed By: #### 3 0934-4 ####[facility] ([id number])[address] [place] [address] 52770#### CMP, 06934-1, 05709-1, 7-1, TSHR ####[facility] ([id number])[address] [facility], [address] [place] [address] 56922 PHOSPHORUSon 10-04-2023 Phosphate [Mass/Vol] 4.1 mg/dL Normal 2.4-4.9 [facility] Comment on above: Performed By: #### 3 0934-4 ####[facility] ([id number])[address] [place] [address] 23966#### ROSALIND, 14360-6, 86247-9, 2776-1, TSHR ####[facility] ([id number])[address] [facility], [address] [place] [address]956 TSH WITH REFLEXon 10-04-2023 TSH 1.48 uIU/mL Normal 0.49-4.67 [facility] Comment on above: Performed By: #### 3 0934-4 ####[facility] ([id number])[address] [place] [address] 16451#### CMP, 61255-4, 27613-5, 2776-1, TSHR ####[facility] ([id number])[address] [facility], [address] [place] [address] 93145 [employer] polysom portableon 01-27 [employer] polysom portable [facility] Main [address] [address] Sleep Lab Report Signed Patient: Jorge Rose MR#: [id number] 0 : 1980 Acct:[id number] Age/Sex: 40 / M ADM Date: 01/22/21 Loc: Room: Type: [facility] Attending Dr: Pineda Foley MD Ordering Provider: Janes Pavon MD Date of Service: 01/22/21 Copies to: DO Janes Quarles MD HOME SLEEP TEST INDICATION FOR STUDY: Sleep apnea. Home sleep testing was performed without sleep staging, but with continuous measurement of body position, oxygen saturations, heart rate, snore volumes, thoracic and abdominal movement and nasal flow. As sleep is not measured for out of center home testing, index time consists of time from either patient recorded lights out or from suggestive positional changes, and continuing until patient recorded lights on or suggestive positional changes. Respiratory events were scored as apneas with decreases of airflow of at least 90% baseline with durations of at least 10 seconds while events were scored as hypopneas with decreases of airflow of at least 30% and up to 90% of baseline with durations of at least 10 seconds, followed by desaturations of at least 4%. RECORDING PARAMETERS: Recording time was 8 hours with 6 hours 20 minutes time in bed. RESPIRATORY SUMMARY: During the home sleep test procedure, the patient had a total of 277 respiratory events (0 central, 201 obstructive, 0 mixed, and 76 hypopneas with at least 4 percent desaturation). The respiratory event index was 43.6. OXYGENATION SUMMARY: Oxygen saturations were mildly impaired with mean of 93.9%. The lowest saturation was 79.0%. The patient spent 3.7 percent of the time in bed with oxygen saturations below 90%. BODY POSITION STATISTICS: The patient spent 36.8 percent of total recording time in the supine position with an apnea/hypopnea index of 36.1, 45.3 percent of total recording time in the non-supine position, and 1 7.9 percent of total recording time in the upright position. HEART RATE SUMMARY: The patient's mean heart rate was 94 with a minimum of 27 and a maximum of 169. RESPIRATORY DATA INTEGRITY: Respiratory data integrity was very good, with no time lost to artifacts. Respiratory data integrity was 100% for flow quality, 97.3% for oximetry saturation quality and 99.1% for RIP sensor belt quality. IMPRESSION: Severe obstructive sleep apnea with mild hypoxia. COMMENTS: The patient was clinically suspected of obstructive sleep apnea, and this study does demonstrate severe apnea to be present. Treatment is clearly indicated. RECOMMENDATIONS: 1. The patient could return for initiation of CPAP by titration, or auto CPAP could be considered. 2. The patient should return to the sleep laboratory to review these results and discuss their implications. 3. The patient should ensure adequate total sleep time and regular sleep-wake cycles. The principles of appropriate sleep hygiene should be encouraged. 4. The patient should continue efforts at progressive weight loss. Even moderate weight loss can result in significant improvement in respiratory events. 5. The patient should be reminded of the medical, accident and cognitive risks associated with sleep apnea. 6. Clinical correlation and follow-up is advised. Transcribed By: MYNOR 01/28/21 1116 Dictated By: Pineda Foley MD 01/27/21 1533 Signed By: 01/29/21 1050 [facility] Echocardiogramon 01-05-[address], [address] [address] TRANSTHORACIC ECHOCARDIOGRAM REPORT Patient Name: JORGE ROSE Reading Physician: [id number] Janes Pavon MD Study Date: 01/05/2021 Referring Physician: [id number] PAVON MRN/PID: [id number] PCP: Fazal Kinsey Accession/Order#: [id number] Department Location: [facility] Date of : 1980 Fellow: Gender: M Nurse: Admit Date: Steam Box Hand: Blanca Escobar RDCS, [facility] Weight: Study Type: Echocardiogram Diagnosis/ICD: R94.31-Abnormal electrocardiogram [ECG] [EKG]; R06.02-Shortness of breath Indication: Diabetes, HTN, Morbid Obesity, COVID-19 08/2020, Possible SURESH, Drug Usage, Angina-Class III Procedure/CPT: Echo Complete w Full Doppler-06999 Study Detail: The following Echo studies were performed: 2D, M-Mode, Doppler and color flow. PHYSICIAN INTERPRETATION: Left Ventricle: The left ventricular systolic function is severely decreased, with an estimated ejection fraction of 30%. The left ventricular cavity size is mildly dilated. Spectral Doppler shows a restrictive pattern of left ventricular diastolic filling. Left Atrium: The left atrium is mild to moderately dilated. Right Ventricle: The right ventricle is normal in size. There is normal right ventricular global systolic function. Right Atrium: The right atrium is normal in size. Aortic Valve: The aortic valve appears structurally normal. There is no evidence of aortic valve regurgitation. The peak instantaneous gradient of the aortic valve is 3.2 mmHg. The mean gradient of the aortic valve is 2.0 mmHg. Mitral Valve: The mitral valve is normal in structure. There is mild mitral valve regurgitation. Mild MR. Tricuspid Valve: The tricuspid valve is structurally normal. No evidence of tricuspid regurgitation. Pulmonic Valve: The pulmonic valve is structurally normal. There is no indication of pulmonic valve regurgitation. Pericardium: There is no pericardial effusion noted. Aorta: The aortic root is normal. Systemic Veins: The inferior vena cava appears to be of normal size. Additional Comments: Normal Echocardiogram. CONCLUSIONS: 1. The left ventricular systolic function is severely decreased with a 30% estimated ejection fraction. 2. Spectral Doppler shows a restrictive pattern of left ventricular diastolic filling. 3. The left atrium is mild to moderately dilated. 4. Mild MR. 5. No cprior study avialable for comparsion. QUANTITATIVE DATA SUMMARY: 2D MEASUREMENTS: Normal Ranges: Ao Root d: 3.00 cm (2.0-3.7cm) LAs: 4.70 cm (2.7-4.0cm) RVIDd: 3.40 cm (0.9-3.6cm) IVSd: 1.20 cm (0.6-1.1cm) LVPWd: 1.00 cm (0.6-1.1cm) LVIDd: 6.60 cm (3.9-5.9cm) LVIDs: 5.40 cm LV % FS 18.2 % LV SYSTOLIC FUNCTION BY 2D PLANIMETRY (MOD): Normal Ranges: EF-A4C View: 35.3 % (>55%) LV DIASTOLIC FUNCTION: Normal Ranges: MV Peak E: 1.21 m/s (0.7-1.2 m/s) MV Peak A: 0.55 m/s (0.42-0.7 m/s) E/A Ratio: 2.21 (1.0-2.2) MV lateral e' 0.04 m/s MV medial e' 0.04 m/s E/e' Ratio: 32.70 (<8.0) MITRAL VALVE: Normal Ranges: MV Vmax: 1.39 m/s (<1.3m/s) MV peak P.7 mmHg (<5mmHg) MV mean P.0 mmHg (<48mmHg) MITRAL INSUFFICIENCY: Normal Ranges: MR Vmax: 453.00 cm/s dP/dt: 909 mmHg/s (>1200mmHg/sec) AORTIC VALVE: Normal Ranges: AoV Vmax: 0.89 m/s (<1.7m/s) AoV Peak P.2 mmHg (<20mmHg) AoV Mean P.0 mmHg (1.7-11.5mmHg) LVOT Max Eusebio: 0.62 m/s (<1.1m/s) AoV VTI: 15.70 cm (18-25cm) LVOT VTI: 10.80 cm LVOT Diameter: 2.70 cm (1.8-2.4cm) AoV Area, VTI: 3.94 cm2 (2.5-5.5cm2) AoV Area,Vmax: 3.96 cm2 (2.5-4.5cm2) AoV Dimensionless Index: 0.69 TRICUSPID VALVE/RVSP: Normal Ranges: Peak TR Velocity: 2.99 m/s RV Syst Pressure: 38.8 mmHg (< 30mmHg) PULMONIC VALVE: Normal Ranges: PV Max Eusebio: 0.4 m/s (0.6-0.9m/s) PV Max P.6 mmHg [id number] Janes Pavon MD Electronically signed on 01/05/2021 at 11:44:49 AM Final Normal [facility] Blood Urea Nitrogenon 2020 Urea nitrogen [Mass/Vol] 9 mg/dL Normal - [facility] Comment on above: Performed By: #### L IPID, PP, CREAT, BUN, CBC, LYTES #### [facility] [address] COVID-19 Antigenon 1 COVID-19 Antigen Healthcare Worker?: N Giovanni Reference Giovanni Reference Negative SARS-CoV+SARS-CoV-2 (COVID-19) Ag [Presence] in Respiratory specimen by Rapid immunoassay Negative for SARS Antigen by AMAYA COVID19 Blank Space -------- Goivanni Disclaimer Negative results, from patients with symptom Giovanni Disclaimer onset beyond five days, should be treated as Giovanni Disclaimer presumptive and confirmation with a molecular Giovanni Disclaimer assay, if necessary, for patient management, Giovanni Disclaimer may be performed. Negative results do not rule Giovanni Disclaimer out COVID-19 and should not be used as the sole Giovanni Disclaimer basis for treatment or patient management Giovanni Disclaimer decisions, including infection control decisions. Giovanni Disclaimer Negative results should be considered in the Giovanni Disclaimer context of a patient's recent exposures, history Giovanni Disclaimer and the presence of clinical signs and symptoms Giovanni Disclaimer consistent with COVID-19. COVID19 Blank Space -------- Giovanni Disclaimer The Giovanni SARS Antigen AMAYA does not differentiate Giovanni Disclaimer between SARS-CoV and SARS-CoV-2. COVID19 Blank Space -------- Giovanni Disclaimer This test was developed and its performance Giovanni Disclaimer characteristic determined by [facility] and Giovanni Disclaimer validated at [facility]. This Giovanni Disclaimer test has not been FDA cleared or approved. This Giovanni Disclaimer test has been authorized by FDA under an Emergency Use Giovanni Disclaimer Authorization (EUA). This test has been validated Giovanni Disclaimer in accordance with the FDA's Guidance Document (Policy Giovanni Disclaimer for Diagnostics Testing in Laboratories Certified to [employer] Perform High Complexity Testing under CLIA prior to Giovanni Disclaimer Emergency Use Authorization for Coronavirus Giovanni Disclaimer iseas during the Public Health Emergency) Giovanni Disclaimer issued on December 20, 2019. This test is only authorized Giovanni Disclaimer for the duration of time the declaration that Giovanni Disclaimer circumstances exist justifying the authorization of Giovanni Disclaimer the emergency use of in vitro diagnostic tests for Giovanni Disclaimer detection of SARS-CoV-2 virus and/or diagnosis of Giovanni Disclaimer COVID-19 infection under section 564(b)(1) of the Giovanni Disclaimer Act, 21 U.S.C. 360bbb-3(b)(1), unless the Giovanni Disclaimer authorization is terminated or revoked sooner. PERFORMED BY: [place] [address] PATHOLOGIST FUR STORAGE CLERK KARYN MONTES M.D. Normal [facility] Comment on above: Performed By: #### C OVID-19 GIOVANNI, SOFIANEG #### [address] Coagulation Profileon 2020 aPTT Coag (Bld) [Time] 28.9 s Normal 25.1-36.5 [facility] Comment on above: Result Comment: PERF ORMED BY: [place] [address] PATHOLOGIST FUR STORAGE CLERK KARYN MONTES M.D. Performed By: #### L IPID, PP, CREAT, BUN, CBC, LYTES #### [facility] [address] [place] [address] INR Coag (PPP) [Relative time] 1.0 {INR} Normal [facility] Comment on above: Result Comment: INR Therapeutic Range A) Pre- and Peroperative OAT started two weeks before surgery. NOT HIP SURGERY: 1.5 - 2.5 HIP SURGERY: 2 - 3 B) Primary and secondary prevention of venous THROMBOSIS: 2 - 3 C) Active venous thrombosis, pulmonary embolism and prevention of recurrent venous thrombosis: 2 - 3 D) Prevention of arterial thromboembolism including patients with mechanical heart valves: 3 - 4.5 Performed By: #### L IPID, PP, CREAT, BUN, CBC, LYTES #### [address] PT Coag (PPP) [Time] 10.8 s Normal 9.0-12.9 [facility] Comment on above: Performed By: #### L IPID, PP, CREAT, BUN, CBC, LYTES #### [address] Complete Blood Count Auto Di ffon 01-01-2021 Basophils (Bld) [#/Vol] 0.1 10*3/uL Normal 0.0-0.2 [facility] Comment on above: Result Comment: PERF ORMED BY: [place] [address] PATHOLOGIST FUR STORAGE CLERK KARYN MONTES M.D. Performed By: #### L IPID, PP, CREAT, BUN, CBC, LYTES #### [address] Basophils/100 WBC (Bld) 0.6 % Normal . [facility] Comment on above: Performed By: #### L IPID, PP, CREAT, BUN, CBC, LYTES #### [address] Eosinophils (Bld) [#/Vol] 0.2 10*3/uL Normal 0.0-0.45 [facility] Comment on above: Performed By: #### L IPID, PP, CREAT, BUN, CBC, LYTES #### [address] Eosinophils/100 WBC (Bld) 2.3 % Normal . [facility] Comment on above: Performed By: #### L IPID, PP, CREAT, BUN, CBC, LYTES #### [address] Erythrocyte distribution width (RBC) [Ratio] 13.3 % Normal 12.0-14.8 [facility] Comment on above: Performed By: #### L IPID, PP, CREAT, BUN, CBC, LYTES #### [address] Hematocrit (Bld) [Volume fraction] 47.8 % Normal 38.8-50.0 [facility] Comment on above: Performed By: #### L IPID, PP, CREAT, BUN, CBC, LYTES #### [address] Hemoglobin (Bld) [Mass/Vol] 16.5 g/dL Normal 13.0-17.0 [facility] Comment on above: Performed By: #### L IPID, PP, CREAT, BUN, CBC, LYTES #### [address] Lymphocytes (Bld) [#/Vol] 2.0 10*3/uL Normal 1.00-4.8 [facility] Comment on above: Performed By: #### L IPID, PP, CREAT, BUN, CBC, LYTES #### [address] Lymphocytes/100 WBC (Bld) 19.6 % Normal . [facility] Comment on above: Performed By: #### L IPID, PP, CREAT, BUN, CBC, LYTES #### [address] MCH (RBC) [Entitic mass] 31.7 pg Normal 27.5-35.2 [facility] Comment on above: Performed By: #### L IPID, PP, CREAT, BUN, CBC, LYTES #### [address] MCV (RBC) [Entitic vol] 91.6 fL Normal 83.5-101 [facility] Comment on above: Performed By: #### L IPID, PP, CREAT, BUN, CBC, LYTES #### [address] Mean Corpuscular HGB Conc 34.6 g/dL Normal 32.5-35.6 [facility] Comment on above: Performed By: #### L IPID, PP, CREAT, BUN, CBC, LYTES #### [address] Monocytes (Bld) [#/Vol] 0.7 10*3/uL Normal 0.0-0.8 [facility] Comment on above: Performed By: #### L IPID, PP, CREAT, BUN, CBC, LYTES #### [address] Monocytes/100 WBC (Bld) 6.9 % Normal . [facility] Comment on above: Performed By: #### L IPID, PP, CREAT, BUN, CBC, LYTES #### [address] Neutrophils (Bld) [#/Vol] 7.2 10*3/uL Normal 1.8-7.7 [facility] Comment on above: Performed By: #### L IPID, PP, CREAT, BUN, CBC, LYTES #### [address] Neutrophils/100 WBC (Bld) 70.6 % Normal . [facility] Comment on above: Performed By: #### L IPID, PP, CREAT, BUN, CBC, LYTES #### [address] Nucleated RBC/100 WBC (Bld) [Ratio] 0.0 % Normal 0-0.5 [facility] Comment on above: Performed By: #### L IPID, PP, CREAT, BUN, CBC, LYTES #### [address] Platelet mean volume (Bld) [Entitic vol] 8.1 fL Normal 6.6-10.1 [facility] Comment on above: Performed By: #### L IPID, PP, CREAT, BUN, CBC, LYTES #### [address] Platelets (Bld) [#/Vol] 250 10*3/uL Normal 150-450 [facility] Comment on above: Performed By: #### L IPID, PP, CREAT, BUN, CBC, LYTES #### [address] RBC (Bld) [#/Vol] 5.21 10*6/uL Normal 3.90-5.60 [facility] Comment on above: Performed By: #### L IPID, PP, CREAT, BUN, CBC, LYTES #### [address] WBC (Bld) [#/Vol] 10.2 10*3/uL Normal 4.5-11.0 [facility] Comment on above: Performed By: #### L IPID, PP, CREAT, BUN, CBC, LYTES #### [address] Creatinineon 01-01-2021 Creatinine [Mass/Vol] 0.77 mg/dL Normal 0.64-1.27 [facility] Comment on above: Performed By: #### L IPID, PP, CREAT, BUN, CBC, LYTES #### [address] Estimated GFR ( Zuri > 60 Normal [facility] Comment on above: Result Comment: GFR estimated reference range: According to KDOQI guidelines, <60 ml/min/1.73m2 is sufficient to diagnose a patient with chronic kidney disease. Performed By: #### L IPID, PP, CREAT, BUN, CBC, LYTES #### [address] Estimated GFR (Non- Am > 60 Normal [facility] Comment on above: Performed By: #### L IPID, PP, CREAT, BUN, CBC, LYTES #### [address] ECG 12 lead ECGon 01-01-2021 ECG 12 lead ECG [facility] Main [place] [address] [place] [address] Electrocardiograph Report Signed Patient: Jorge Rose MR#: [id number] 0 : 1980 Acct:[id number] Age/Sex: 40 / M ADM Date: 01/01/21 Loc: PS Room: Type: [facility] Attending Dr: Janes Pavon MD Ordering Provider: Janes Pavon MD Date of Service: 01/01/21 ECG/ECG 12 lead ECG: pre op Copies to: Test Reason : Blood Pressure : / mmHG Vent. Rate : 103 BPM Atrial Rate : 103 BPM P-R Int : 136 ms QRS Dur : 094 ms QT Int : 364 ms P-R-T Axes : 052 079 011 degrees QTc Int : 476 ms Sinus tachycardia Possible Left atrial enlargement Poor anterior R wave progression Borderline ECG No previous ECGs available Confirmed by ADILSON MOORE DO ([id number]) on 01/01/2021 12:42:56 PM Referred By: GAYATRI PAVON Electronically Signed By:ADILSON MOORE DO Transcribed By: [facility] Dictated By: Adilson Moore DO 01/01/21 0814 Signed By: 01/01/21 1242 Normal [facility] Electrolyteson 01-01-2021 Chloride [Moles/Vol] 102 mmol/L Normal 95-114 [facility] Comment on above: Performed By: #### L IPID, PP, CREAT, BUN, CBC, LYTES #### [facility] [address] [place] [address] CO2 [Moles/Vol] 24.8 mmol/L Normal 22.0-30.0 [facility] Comment on above: Performed By: #### L IPID, PP, CREAT, BUN, CBC, LYTES #### [facility] [address] [place] [address] [place] Potassium [Moles/Vol] 4.6 mmol/L Normal 3.5-5.1 [facility] Comment on above: Performed By: #### L IPID, PP, CREAT, BUN, CBC, LYTES #### [facility] [address] [place] [address] [place] Sodium [Moles/Vol] 136 mmol/L Normal 136-146 [facility] Comment on above: Performed By: #### L IPID, PP, CREAT, BUN, CBC, LYTES #### [facility] [address] Lipid Panelon 01-01-2021 Cholesterol [Mass/Vol] 176 mg/dL Normal 140-200 [facility] Comment on above: Result Comment: Chol less than 200 mg/dl low risk Chol 201-239 mg/dl borderline risk Chol 240 mg/dl and greater high risk Performed By: #### L IPID, PP, CREAT, BUN, CBC, LYTES #### [facility] [address] Cholesterol in HDL [Mass/Vol] 50 mg/dL Normal 29-71 [facility] Comment on above: Result Comment: HDL CHOL ATP-III CLASSIFICATION Cardiovascular Risk HDL > or equal to 60 mg/dL LOW HDL < 40 mg/dL HIGH Performed By: #### L IPID, PP, CREAT, BUN, CBC, LYTES #### [address] Cholesterol.total/Ch olesterol in HDL [Mass ratio] 3.5 {ratio} Normal <5.0 [facility] Comment on above: Result Comment: PERF ORMED BY: [place] [id number] PATHOLOGIST FUR STORAGE CLERK KARYN MONTES M.D. Performed By: #### L IPID, PP, CREAT, BUN, CBC, LYTES #### [address] LDL Cholesterol,Calculat ed 104 mg/dL High 0-100 [facility] Comment on above: Result Comment: LDL ATP III CLASSIFICATION LDL less than 100 mg/dL Optimal LDL 100-129 mg/dL Near or above optimal LDL 130-159 mg/dL Borderline high LDL 160-189 mg/dL High LDL greater than 189 mg/dL Very high Performed By: #### L IPID, PP, CREAT, BUN, CBC, LYTES #### [address] Triglyceride w/Reflex 111 mg/dL Normal 35-149 [facility] Comment on above: Result Comment: TRIG ATP III CLASSIFICATION TRIG less than 150 mg/dL Normal TRIG 150-199 mg/dL Borderline high TRIG 200-500 mg/dL High TRIG greater than 500 mg/dL Very high Standard traceable to the Center for Disease Conrtrol and Prevention (CDC) test method. Performed By: #### L IPID, PP, CREAT, BUN, CBC, LYTES #### [facility] [address] VLDL CHOLESTEROL 22 mg/dL Normal [facility] Comment on above: Performed By: #### L IPID, PP, CREAT, BUN, CBC, LYTES #### [facility] [address] Giovanni Ag Negativeon 01-02-20 21 Giovanni Ag Negative Negative Normal Negative [facility] Comment on above: Result Comment: This is a duplicate Giovanni SARS Antigen (AMAYA) result to be used for statistical tracking purpose only. PERFORMED BY: [place] [address] PATHOLOGIST FUR STORAGE CLERK KARYN MONTES M.D. Performed By: #### C OVID-19 GIOVANNI, SOFIANEG #### [address] MRI SHOULDER RT WO CONon MRI SHOULDER RT WO CON [address] [place] [address] Patient: JORGE ROSE Exam Date: 04/12/2017DOB: 1980 Gender:M : PORSCHE PHILLIPS Admission #: [id number] : Order #: [id number] HERE TO VIEW EXAM RADIOLOGY REPORT PROCEDURE: MRI SHOULDER RIGHT WITHOUT CONTRAST COMPARISON: None. INDICATIONS: Impingement syndrome of right shoulder M75.41 acute right shoulder joint pain and limited range of motion after fall TECHNIQUE: A variety of imaging planes and parameters were utilized for visualization of suspected pathology. Imaging was performed without contrast. FINDINGS:ROTATOR CUFF REGION CUFF TENDONS: Mild increased signal intensity in the supraspinatus tendon indicates tendon degeneration and/or tendinitis. No carmela tear is seen. CUFF MUSCLES: Normal appearing muscles. DELTOID: No significant atrophy or tear. LONG BICEPS TENDON: No abnormal signal, attrition, or tear. LABRUM/BICEPS ANCHOR SUPERIOR: No visible labral tear or biceps anchor pathology. ANTERIOR/INFERIOR: No visible tear or attrition. POSTERIOR: No posterior labrum abnormality. CAPSULE Normal. No visible capsular laxity or thickening. AC JOINT REGION AC JOINT: Cranial subluxation of the distal clavicle and relation to the acromial process with widening of the acromial thickening distance and measuring 8.4 mm and widening of the coracoclavicular distance measuring 2.0 cm AC LIGAMENTS: Grade III (complete) tear of the acromioclavicular ligament. CC LIGAMENTS: Grade III (complete) tear of the coracoclavicular ligaments. ACROMION: Normal horizontal configuration. SUBACROMIAL BURSA: Normal. No significant effusion. HYALINE CARTILAGE: No visible cartilage narrowing or focal defect. OTHER BONES: Normal proximal humerus, glenoid, and coracoid. OTHER OBSERVATIONS: Negative. No other significant findings or glenohumeral effusion. CONCLUSION: 1. Type 3 strain of the acromioclavicular joint with bone edema of the distal clavicle consistent with known trauma Dictated by: Pineda Perez M.D. on 04/12/2017 at 10:45 Approved by: Pineda Perez M.D. on 04/12/2017 at 10:58 Normal [facility] Vital Signs Date Time Vital Sign Value Performing Clinician Facility 07-03-2024 08:49-0400 Body height 157.5 cm Bib Sanz DPM Work Phone: [facility] 07-03-2024 08:49-0400 Body mass index (BMI) [Ratio] 40.97 kg/m2 Bib Sanz DPM Work Phone: [facility] 07-03-2024 08:49-0400 Body temperature 97.59 [degF] Bib Sanz DPM Work Phone: [facility] 07-03-2024 08:49-0400 Body weight 101.61 kg Bib Sanz DPM Work Phone: [facility] 06-26-2024 16:38-0400 Body height 157.5 cm Bib Rusher DPM Work Phone: [facility] 06-26-2024 16:38-0400 Body mass index (BMI) [Ratio] 40.24 kg/m2 Bib Sanz DPM Work Phone: [facility] 06-26-2024 16:38-0400 Body weight 99.79 kg Bib Sanz DPM Work Phone: [facility] 06-21-2024 16:27-0400 Body height 157.5 cm Bib Sanz DPM Work Phone: [facility] 06-21-2024 16:27-0400 Body mass index (BMI) [Ratio] 40.24 kg/m2 Bib Sanz DPM Work Phone: [facility] 06-21-2024 16:27-0400 Body weight 99.79 kg Bib Sanz DPM Work Phone: [facility] 06-18-2024 13:39-0400 Body height 157.5 cm [facility] [place] 06-18-2024 13:39-0400 Body mass index (BMI) [Ratio] 41.15 kg/m2 [facility] [place] 06-18-2024 13:39-0400 Body weight 102.06 kg [facility] [place] 12-13-2023 16:37-0400 Body height 157.5 cm Arlyn Guzman MD Work Phone: [place] 12-13-2023 16:37-0400 Body mass index (BMI) [Ratio] 38.89 kg/m2 Arlyn Guzman MD Work Phone: [place] 12-13-2023 16:37-0400 Body temperature 98.1 [degF] Arlyn Guzman MD Work Phone: [place] 12-13-2023 16:37-0400 Body weight 96.44 kg Arlyn Guzman MD Work Phone: [place] 12-13-2023 16:37-0400 Diastolic blood pressure 70 mm[Hg] Arlyn Guzman MD Work Phone: [place] 12-13-2023 16:37-0400 Heart rate 81 /min Arlyn Guzman MD Work Phone: [place] 12-13-2023 16:37-0400 SaO2% (BldA) [Mass fraction] 98 % Arlyn Guzman MD Work Phone: [place] 12-13-2023 16:37-0400 Systolic blood pressure 132 mm[Hg] Arlyn Guzman MD Work Phone: [place] 12-05-2023 13:09-0400 Body height 157.5 cm David Tineo MD Work Phone: [place] 12-05-2023 13:09-0400 Body mass index (BMI) [Ratio] 38.78 kg/m2 David Tineo MD Work Phone: [place] 12-05-2023 13:09-0400 Body weight 96.16 kg David Tineo MD Work Phone: [place] 12-05-2023 13:09-0400 Diastolic blood pressure 82 mm[Hg] David Tineo MD Work Phone: [place] 12-05-2023 13:09-0400 Heart rate 88 /min David Tineo MD Work Phone: [place] 12-05-2023 13:09-0400 Systolic blood pressure 122 mm[Hg] David Tineo MD Work Phone: [place] 10-31-2023 10:31-0500 Body height 157.5 cm Grecia STEELE Work Phone: [place] 10-31-2023 10:31-0500 Body mass index (BMI) [Ratio] 37.62 kg/m2 Grecia Tatum APRN-LABORATORY MANAGER Work Phone: [place] 10-31-2023 10:31-0500 Body weight 93.31 kg Grecia Tatum HAND INSERTER OPERATOR-LABORATORY MANAGER Work Phone: [employer] 10-31-2023 10:31-0500 Diastolic blood pressure 69 mm[Hg] Grecia Tatum HAND INSERTER OPERATOR-LABORATORY MANAGER [facility] 10-31-2023 10:31-0500 Heart rate 78 /min Grecia Tatum HAND INSERTER OPERATOR-LABORATORY MANAGER Work Phone: [facility] 10-31-2023 10:31-0500 SaO2% (BldA) [Mass fraction] 100 % Grecia Tatum HAND INSERTER OPERATOR-LABORATORY MANAGER Work Phone: [employer] 10-31-2023 10:31-0500 Systolic blood pressure 109 mm[Hg] Grecia Tatum HAND INSERTER OPERATOR-LABORATORY MANAGER [facility] Phone[facility] 2023 12:31-0500 Body temperature 98.1 [degF] Rosendo Tovar MD Work Phone: [facility] 2023 12:31-0500 Diastolic blood pressure 83 mm[Hg] Rosendo Tovar MD Work Phone: [facility] 2023 12:31-0500 Heart rate 74 /min Rosendo [facility]ovar MD [facility] 2023 12:31-0500 Respiratory rate 13 /min Rosendo Tovar MD Work Phone: [facility] 2023 12:31-0500 SaO2% (BldA) [Mass fraction] 96 % Rosendo Tovar MD Work Phone: [facility] 2023 12:31-0500 Systolic blood pressure 119 mm[Hg] Rosendo [facility]ovar MD [facility] 2023 05:42-0500 Body mass index (BMI) [Ratio] 33.79 kg/m2 Rosendo Tovar MD Work Phone: [facility] 2023 05:42-0500 Body weight 83.8 kg Rosendo Tovar MD Work Phone: [facility] 10-15-2023 18:36-0500 Body height 157.5 cm Rosendo Tovar MD Work Phone: [place] 09-29-2023 16:30-0500 Body height 160 cm Arlyn Guzman MD Work Phone: [facility] 09-29-2023 16:30-0500 Body mass index (BMI) [Ratio] 39.55 kg/m2 Arlyn Guzman MD Work Phone: [facility] 09-29-2023 16:30-0500 Body temperature 97.7 [degF] Aryln Guzman MD Work Phone: [place] 09-29-2023 16:30-0500 Body weight 101.24 kg Arlyn Guzman MD Work Phone: [facility] 09-29-2023 16:30-0500 Diastolic blood pressure 80 mm[Hg] Arlyn Guzman MD Work Phone: [facility] 09-29-2023 16:30-0500 Heart rate 88 /min Arlyn Guzman MD Work Phone: [facility] 09-29-2023 16:30-0500 SaO2% (BldA) [Mass fraction] 97 % Arlyn Guzman MD Work Phone: [facility] 09-29-2023 16:30-0500 Systolic blood pressure 136 mm[Hg] Arlyn Guzman MD Work Phone: [facility] 07-21-2021 15:45-0400 Body height Pineda Foley Other [employer] Other 07-21-2021 15:45-0400 Body mass index (BMI) [Ratio] 41.02 kg/m2 Pineda Foley Other [employer] Other 07-21-2021 15:45-0400 Body temperature 96.9 [degF] Pineda Foley Other [employer] Other 07-21-2021 15:45-0400 Body weight 108.41 kg Pineda Foley Other [employer] Other 07-21-2021 15:45-0400 Diastolic blood pressure 91 mm[Hg] Pineda Foley Other [employer] Other 07-21-2021 15:45-0400 SaO2% (BldA) [Mass fraction] 100 % Pineda Foley Other [employer] Other 07-21-2021 15:45-0400 Systolic blood pressure 150 mm[Hg] Pineda Foley Other [employer] Other Encounters Encounter Date Encounter Type Care Provider Facility Start: 07-03-2024 End: 07-03-2024 Biomatricaheet Bib Sanz DPM Work Phone: [facility] Start: 07-03-2024 End: 07-03-2024 Rapid RMSo [employer] Bib Sanz DPM Work Phone: [facility] Start: 07-03-2024 End: 07-03-2024 Office outpatient visit 15 minutes Bib Sanz DPM Work Phone: [facility] Comment on above: Osteomyelitis of gre at toe of right foot (CMS/HCC) (Primary Dx); 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, stage 3 (CMS/HCC); Cellulitis and abscess of toe of right foot; Diabetic polyneuropathy associated with type 2 diabetes mellitus (CMS/HCC); Encounter for long-term (current) use of insulin (CMS/HCC) Start: 07-03-2024 End: 07-03-2024 ambulatory BIB SANZ Not Available Start: 06-29-2024 End: 06-29-2024 ambulatory [facility] Start: 06-28-2024 End: 06-28-2024 ambulatory [facility] Start: 06-27-2024 End: 06-27-2024 ambulatory [facility] Start: 06-26-2024 End: 06-26-2024 Postop follow up visit related to original px Bib Sanz DPM Work Phone: [facility] Comment on above: Postoperative visit (Primary Dx); Osteomyelitis of great toe of right foot (CMS/HCC) Start: 06-26-2024 End: 06-26-2024 ambulatory BIB SANZ Not Available Start: 06-26-2024 End: 06-26-2024 Bamboo flowsheet Bib Sanz DPM Work Phone: [facility] Start: 06-26-2024 End: 06-26-2024 Bamboo flowsheet Bib Sanz DPM Work Phone: [facility] Start: 06-22-2024 End: 06-25-2024 Telephone encounter Bib Sanz DPM Work Phone: [facility] Comment on above: Advice Only (Antibio tic Rx) Start: 06-21-2024 End: 06-21-2024 Postop follow up visit related to original px Bib Sanz DPM Work Phone: [facility] Comment on above: Osteomyelitis of gre at toe of right foot (CMS/HCC) (Primary Dx); 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, stage 3 (CMS/HCC); Postoperative visit Start: 06-21-2024 End: 06-21-2024 ambulatory BIB SANZ Not Available Start: 06-21-2024 End: 06-25-2024 Telephone encounter Bib Sanz DPM Work Phone: [facility] Comment on above: Advice Only (Concern s Regarding Bleeding) Start: 06-20-2024 End: 06-22-2024 Orders Only Joan Richardson HAND INSERTER OPERATOR-LABORATORY MANAGER Work Phone: [facility] Comment on above: Uncontrolled type 2 diabetes mellitus with hyperglycemia ([facility]) (Primary Dx) Advice Only (Pain Rx Request) Start: 06-19-2024 End: 06-19-2024 Patient encounter procedure Bib Sanz DPM Work Phone: [facility] Comment on above: Osteomyelitis of gre at toe of right foot ([facility]/HCC) (Primary Dx); Type 2 diabetes mellitus with stage 3 decubitus ulcer of toe ([facility]); Diabetic polyneuropathy associated with type 2 diabetes mellitus ([facility]) Start: 06-19-2024 End: 06-19-2024 Evaluation and management of inpatient BIB SANZ [facility] Start: 06-19-2024 End: 06-21-2024 External Result Encounter Bib Sanz DPM Work Phone: [facility] External Department Unsolicited Start: 06-19-2024 End: 06-21-2024 External Result Encounter Bib Sanz DPM Work Phone: [facility] External Department Unsolicited Start: 06-18-2024 End: 06-18-2024 ambulatory [facility] Pat Phone Call Provider 1 [facility] Pre Ad[facility] Start: 06-18-2024 End: 06-18-2024 [facility] Start: 06-18-2024 End: 06-18-2024 ambulatory BIB SANZ Not Available Start: 06-18-2024 End: 06-18-2024 ambulatory BIB SANZ Not Available Start: 06-15-2024 End: 06-20-2024 Telephone encounter Shirley Garcia RN [facility] Comment on above: Care Navigation Start: 06-12-2024 End: 06-12-2024 ambulatory [facility] Start: 05-29-2024 End: 05-29-2024 ambulatory [facility] Start: 05-16-2024 End: 05-16-2024 [facility] Start: 05-11-2024 End: 05-11-2024 ambulatory BIB SANZ Not Available Start: 05-07-2024 End: 05-11-2024 Evaluation and management of inpatient [place] [facility] Start: 05-05-2024 End: 05-11-2024 Evaluation and management of inpatient [facility] Start: 05-05-2024 End: 05-11-2024 Emergency department patient visit [place] [facility] Start: 05-05-2024 End: 05-10-2024 Evaluation and management of inpatient [facility] Start: 05-01-2024 End: 05-01-2024 ambulatory [facility] Start: 04-26-2024 End: 04-26-2024 ambulatory [facility] Start: 04-05-2024 End: 04-05-2024 ambulatory [facility] Start: 02-27-2024 End: 03-02-2024 ambulatory [facility] Start: 02-23-2024 End: 03-02-2024 ambulatory [facility] Start: 02-22-2024 End: 03-02-2024 ambulatory [facility] Start: 02-20-2024 End: 03-02-2024 ambulatory [facility] Start: 02-16-2024 End: 02-18-2024 ambulatory [facility] Start: 02-15-2024 End: 02-18-2024 ambulatory [facility] Start: 02-08-2024 End: 02-18-2024 ambulatory [facility] Start: 02-08-2024 End: 02-18-2024 ambulatory [facility] Start: 02-06-2024 End: 02-18-2024 ambulatory [facility] Start: 02-02-2024 End: 02-18-2024 ambulatory [facility] Start: 02-01-2024 End: 02-18-2024 ambulatory [facility] Start: 01-30-2024 End: 02-18-2024 ambulatory [facility] Start: 01-26-2024 End: 02-18-2024 ambulatory [facility] Start: 01-25-2024 End: 02-18-2024 ambulatory [facility] Start: 01-23-2024 End: 02-18-2024 ambulatory [facility] Start: 01-19-2024 End: 01-19-2024 [facility] Start: 01-19-2024 End: 02-18-2024 ambulatory [facility] Start: 01-18-2024 End: 02-18-2024 ambulatory [facility] Start: 01-16-2024 End: 01-18-2024 ambulatory [facility] Start: 01-12-2024 End: 01-18-2024 ambulatory [facility] Start: 01-11-2024 End: 01-18-2024 ambulatory [facility] Start: 01-09-2024 End: 01-18-2024 ambulatory [facility] Start: 01-04-2024 End: 01-18-2024 ambulatory JAYDUTT B [facility] Start: 01-04-2024 End: 01-18-2024 ambulatory [facility] Start: 01-02-2024 End: 01-18-2024 ambulatory [facility] Start: 12-29-2023 End: 01-18-2024 ambulatory [facility] Start: 12-27-2023 End: 01-18-2024 ambulatory GRECIA TATUM [facility] Start: 12-26-2023 End: 01-18-2024 ambulatory [facility] Start: 12-22-2023 End: 01-18-2024 ambulatory [facility] Start: 12-21-2023 Telephone encounter Brii Wheeler [facility] Start: 12-21-2023 End: 01-18-2024 ambulatory [facility] Start: 12-19-2023 End: 01-18-2024 ambulatory [facility] Start: 12-15-2023 End: 12-19-2023 ambulatory [facility] Start: 12-13-2023 End: 12-13-2023 Office outpatient visit 15 minutes Arlyn Guzman MD Work Phone: [facility] Comment on above: Chronic HFrEF (heart failure with reduced ejection fraction) [place]) (Primary Dx); Other cardiomyopathy ([facility]); Class 2 severe obesity due to excess calories with serious comorbidity and body mass index (BMI) of 35.0 to 35.9 in adult ([facility]); Uncontrolled type 2 diabetes mellitus with hyperglycemia ([facility]) Start: 12-13-2023 End: 12-19-2023 ambulatory ARLYN GUZMAN [facility] Start: 12-12-2023 End: 12-19-2023 ambulatory [facility] Start: 12-08-2023 End: 12-19-2023 ambulatory [facility] Start: 12-07-2023 End: 12-19-2023 ambulatory [facility] Start: 12-05-2023 End: 12-05-2023 Office outpatient visit 15 minutes Jorge Maier MD Work Phone: [facility] Comment on above: Primary hypertension (Primary Dx); Chronic HFrEF (heart failure with reduced ejection fraction) ([facility]); Class 2 severe obesity due to excess calories with serious comorbidity in adult, unspecified BMI ([facility]) Start: 12-05-2023 End: 12-05-2023 ambulatory [facility] Start: 12-05-2023 End: 12-19-2023 ambulatory [facility] Start: 12-02-2023 Telephone encounter Gissel Guzman CMA [facility] Start: 11-30-2023 End: 11-30-2023 Patient encounter procedure Noel Jasso MD Work Phone: [facility] Comment on above: Chronic HFrEF (heart failure with reduced ejection fraction) ([facility] Start: 11-30-2023 End: 12-19-2023 ambulatory [facility] Start: 11-28-2023 End: 11-28-2023 [facility] Start: 11-28-2023 End: 11-28-2023 Patient encounter procedure Noel Jasso MD Work Phone: [facility] Comment on above: Chronic HFrEF (heart failure with reduced ejection fraction) ([facility] Start: 11-25-2023 End: 11-25-2023 ambulatory [facility] Start: 11-23-2023 Refill William Cardenas CMA [facility] Start: 11-21-2023 Refill Allison up APRN-LABORATORY MANAGER Work Phone: [facility] Start: 11-15-2023 End: 11-15-2023 ambulatory [facility] Start: 11-04-2023 Kanika Connor [facility] Comment on above: Uncontrolled type 2 diabetes mellitus with hyperglycemia ([facility]) Start: 10-31-2023 Telephone encounter Gissel Guzman CMA [facility] Start: 10-31-2023 End: 10-31-2023 ambulatory [facility] Start: 10-31-2023 End: 10-31-2023 Office outpatient new 45 minutes Arlyn Guzman MD Work Phone: [facility] Comment on above: Chronic HFrEF (heart failure with reduced ejection fraction) ([facility] (Primary Dx); Primary hypertension Start: 10-28-2023 End: 10-28-2023 ambulatory [facility] Start: 10-18-2023 Telephone encounter Jael Porter RN [facility] Start: 2023 End: 2023 ambulatory [facility] Start: 2023 Telephone encounter [facility] Start: 10-14-2023 End: 2023 Evaluation and management of inpatient ALEXANDRERADHA GUAJARDO [facility] Start: 10-14-2023 End: 2023 Evaluation and management of inpatient Alexandre Guajardo MD Work Phone: [facility] [address] Comment on above: Syncope, unspecified syncope type (Primary Dx); Chronic HFrEF (heart failure with reduced ejection fraction) ([facility]); Primary hypertension; Class 2 severe obesity due to excess calories with serious comorbidity and body mass index (BMI) of 35.0 to 35.9 in adult Start: 10-13-2023 End: 10-15-2023 ambulatory SARA CORREIA [facility] Start: 10-12-2023 End: 10-15-2023 Emergency department patient visit SANDY CALLOWAY [facility] Start: 10-12-2023 End: 10-14-[address] [facility] Start: 10-07-2023 Telephone encounter [facility] Start: 10-05-2023 Telephone encounter Diya VARMA [facility] Start: 10-04-2023 End: 10-04-[address] [facility] Start: 10-03-2023 Telephone encounter Gissel davis MA [facility] Start: 09-29-2023 End: 09-29-2023 Office outpatient visit 25 minutes Arlyn Guzman MD Work Phone: [facility] Comment on above: Chronic HFrEF (heart failure with reduced ejection fraction) ([facility]) (Primary Dx); Uncontrolled type 2 diabetes mellitus with hyperglycemia ([facility] [facility] Primary hypertension Start: 09-29-2023 End: 09-29-2023 ambulatory [facility] Start: 02-02-2022 Rx Renewal Max L Pavlock Work Phone: [facility] 250 DO Work Phone: Start: 01-25-2022 Rx Renewal Max L Pavlock Work Phone: [facility] 250 DO Work Phone: Start: 07-21-2021 End: 07-21-2021 ambulatory Pineda Foley Other [facility] [employer] Other Start: 07-21-2021 Office outpatient vi sit 25 minutes Pineda Foley [facility] Start: 04-12-2017 End: 04-13-2017 Ambulatory [facility]ING Facility:H1 Procedures Date Procedure Procedure Detail Performing Clinician Start: 06-19-2024 BONE CULTURE ([place]) Bib Sanz DPM Work Phone: Start: 12-13-2023 Follow-up visit Follow-up ARLYN GUZMAN Start: 11-28-2023 Gluc bld gluc mntr d ev cleared fda spec home use Noel Jasso MD Work Phone: Start: 11-28-2023 End: 11-28-2023 Gluc bld gluc mntr dev cleared fda spec home use Noel Jasso MD Work Phone: Start: 2023 Gluc bld gluc mntr d ev cleared fda spec home use Alexandre Guajardo MD Work Phone: Start: 2023 Gluc bld gluc mntr d ev cleared fda spec home use Alexandre Guajardo MD Work Phone: Start: 2023 Comprehensive metabo lic panel Mildred Meza HAND INSERTER OPERATOR-LABORATORY MANAGER Work Phone: Start: 10-16-2023 Gluc bld gluc mntr d ev cleared fda spec home use Alexandre Guajardo MD Work Phone: Start: 10-16-2023 Gluc bld gluc mntr d ev cleared fda spec home use Alexandre Guajardo MD Work Phone: Start: 10-16-2023 Gluc bld gluc mntr d ev cleared fda spec home use Alexandre Guajardo MD Work Phone: Start: 10-16-2023 Gluc bld gluc mntr d ev cleared fda spec home use Alexandre Guajardo MD Work Phone: Start: 10-16-2023 Gluc bld gluc mntr d ev cleared fda spec home use Alexandre Guajardo MD Work Phone: Start: 10-15-2023 Gluc bld gluc mntr d ev cleared fda spec home use Alexandre Guajardo MD Work Phone: Start: 10-15-2023 Gluc bld gluc mntr d ev cleared fda spec home use Alexandre Guajardo MD Work Phone: Start: 10-15-2023 Comprehensive metabo lic panel Alexandre Guajardo MD Work Phone: Start: 10-15-2023 Adult depression scr eening assessment Yany Francois Start: 10-14-2023 Cardiac catheterization Alexandre Guajardo MD Work Phone: Start: 10-14-2023 LV/CORS Alexandre Guajardo MD Work Phone: Start: 08-18-2022 Microalbumin [Mass/v olume] in Urine by Test strip Diya Carlos [facility] Start: 07-06-2022 Adult depression scr eening assessment Arlyn Guzman MD Work Phone: Total colonoscopy Max L Pavl ock Work Phone: Plan of Treatment Date Care Activity Detail Author Start: 10-12-2033 DTaP,Tdap and Td Vaccines (2 - Td or Tdap) DTaP,Tdap and Td Vaccines (2 - Td or Tdap) [place] Start: 06-19-2025 Tobacco Screening Tobacco Screening [place] Start: 06-18-2025 Adult BMI Screening Adult BMI Screening [place] Start: 12-12-2024 Adult BMI Screening Adult BMI Screening [place] Start: 12-12-2024 Tobacco Screening Tobacco Screening [place] Start: 12-04-2024 Adult BMI Screening Adult BMI Screening [place] Start: 12-04-2024 Tobacco Screening Tobacco Screening [place] Start: 10-31-2024 Adult BMI Screening Adult BMI Screening [place] Start: 10-31-2024 Tobacco Screening Tobacco Screening [place] Start: 2024 Adult BMI Screening Adult BMI Screening [place] Start: 10-15-2024 Depression Screening Depression Screening [place] Start: 10-15-2024 Tobacco Screening Tobacco Screening [place] Start: 10-08-2024 End: 10-08-2024 Patient encounter procedure 10/08/2024 9:00 AM EST Office Visit [facility] [address] [place] [phone] Arlyn Guzman MD [address] [place] [address] [facility] Start: 09-29-2024 Adult BMI Screening Adult BMI Screening [place] Start: 09-29-2024 Tobacco Screening Tobacco Screening [place] Start: 08-30-2024 End: 08-30-2024 Patient encounter procedure 08/30/2024 8:15 AM EST Office Visit [facility] [address] [facility] [place] [phone] Leslee Bowden MD [address] [place] [address] Sophia Rockwell MD [address] [place] [address] [facility] Start: 07-26-2024 End: 07-26-2024 Patient encounter procedure 07/26/2024 2:45 PM EST Office Visit [facility] [address] [facility] [place] [phone] Arlyn Guzman MD [address] [facility] [place], [place] [phone] [facility] Start: 07-10-2024 End: 07-10-2024 Patient encounter procedure 07/10/2024 1:45 PM EDT Office Visit [facility] [address] [place] [phone] Bib Sanz, DPMehnaz [address] [facility] [place] [address] [facility] Start: 07-03-2024 End: 07-03-2024 Patient encounter procedure [facility] Comment on above: Arrived Start: 06-26-2024 End: 06-26-2024 Patient encounter procedure [facility] Comment on above: Arrived Start: 06-21-2024 End: 06-21-2024 Patient encounter procedure 06/21/2024 4:30 PM EDT Office Visit [facility] [address] [place] [phone] Bib Sanz DPM [address] [place], [place] [phone] [facility] Start: 06-19-2024 End: 06-19-2024 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 06/19/2024 3:40 PM EDT [facility] Start: 06-07-2024 End: 06-07-2024 Patient encounter procedure 06/07/2024 9:00 AM EDT Office Visit [facility] [address] [phone] Leslee Bowden MD [address] [place], [place] [phone] [facility] Start: 05-20-2024 Influenza vaccination Influenza Vaccine [place] Start: 03-21-2024 End: 03-21-2024 Patient encounter procedure 03/21/2024 2:30 PM EDT Office Visit [facility] [address] [place] [phone] Arlyn Guzman MD [address] [place], [place] [phone] [facility] Start: 02-27-2024 End: 02-27-2024 Patient encounter procedure 02/27/2024 2:00 PM EDT Office Visit [facility] [address] [place] [phone] Grecia Tatum, HAND INSERTER OPERATOR-LABORATORY MANAGER [address] [place], [place] [phone] [facility] Start: 02-23-2024 End: 02-23-2024 Patient encounter procedure 02/23/2024 2:00 PM EDT Office Visit [facility] [address] [place] [address] Grecia Tatum, HAND INSERTER OPERATOR-LABORATORY MANAGER [address] [place] [address] [facility] Start: 02-22-2024 End: 02-22-2024 Patient encounter procedure 02/22/2024 2:00 PM EDT Office Visit [facility] [address] [place] [address] Grecia Tatum, HAND INSERTER OPERATOR-LABORATORY MANAGER [address] [place] [facility] [place] [address] [facility] Start: 02-20-2024 End: 02-20-2024 Patient encounter procedure 02/20/2024 2:00 PM EDT Office Visit [facility] [address] [place] [address] Grecia Tatum, HAND INSERTER OPERATOR-LABORATORY MANAGER [address] [place] [address] [facility] Start: 02-16-2024 End: 02-16-2024 Patient encounter procedure 02/16/2024 2:00 PM EDT Office Visit [facility] [address] [place] [address] Noel Jasso MD [address] [place] [address] [facility] Start: 02-15-2024 End: 02-15-2024 Patient encounter procedure 02/15/2024 2:00 PM EDT Office Visit [facility] [address] [place] [address] Noel Jasso MD [address] [place] [address] [facility] Start: 02-09-2024 End: 02-09-2024 Patient encounter procedure 02/09/2024 2:00 PM EDT Office Visit [facility] [address] [place] [address] Noel Jasso MD [address] [place] [address] [facility] Start: 02-08-2024 End: 02-08-2024 Patient encounter procedure 02/08/2024 2:00 PM EDT Office Visit [facility] [address] [place] [address] Noel Jasso MD [address] [place] [address] [facility] Start: 02-06-2024 End: 02-06-2024 Patient encounter procedure 02/06/2024 2:00 PM EDT Office Visit [facility] [address] [place] [address] Noel Jasso MD [address] [place] [address] [facility] Start: 02-02-2024 End: 02-02-2024 Patient encounter procedure 02/02/2024 2:00 PM EDT Office Visit [facility] [address] [place] [address] Noel Jasso MD [address] [place] [address] [facility] Start: 02-01-2024 End: 02-01-2024 Patient encounter procedure 02/01/2024 2:00 PM EDT Office Visit [facility] [address] [place] [address] Noel Jasso MD [facility] [place] [address] [facility] Start: 01-30-2024 End: 01-30-2024 Patient encounter procedure 01/30/2024 2:00 PM EDT Office Visit [facility] [address] [place] [address] Noel Jasso MD [facility] [place] [address] [facility] Start: 01-26-2024 End: 01-26-2024 Patient encounter procedure 01/26/2024 2:00 PM EDT Office Visit [facility] [address] [place] [address] Noel Jasso MD [facility] [place] [address] [facility] Start: 01-25-2024 End: 01-25-2024 Patient encounter procedure 01/25/2024 2:00 PM EDT Office Visit [facility] [address] [place] [address] Noel Jasso MD [address] [place] [address] [facility] Start: 01-23-2024 End: 01-23-2024 Patient encounter procedure 01/23/2024 2:00 PM EDT Office Visit [facility] [address] [place] [address] Noel Jasso MD [address] [place] [address] [facility] Start: 01-19-2024 End: 01-19-2024 Patient encounter procedure 01/19/2024 2:00 PM EDT Office Visit [facility] [address] [place] [address] Noel Jasso MD [address] [place] [address] [facility] Start: 01-18-2024 End: 01-18-2024 Patient encounter procedure 01/18/2024 2:00 PM EDT Office Visit [facility] [address] [place] [address] Noel Jasso MD [address] [place] [address] [facility] Start: 01-16-2024 End: 10-31-2024 MR Heart WO and W contrast IV MR cardiac for morphology with and without contrast Imaging Routine Chronic HFrEF (heart failure with reduced ejection fraction) ([facility]) Primary hypertension Expected: 01/16/2024 (Approximate), Expires: 10/31/2024 [place] Comment on above: Expected: 01/16/2024 (Approximate), Expi res: 10/31/2024 Start: 01-16-2024 End: 01-16-2024 Patient encounter procedure 01/16/2024 2:00 PM EDT Office Visit [facility] [address] [place] [address] Noel Jasso MD [address] [place] [address] [facility] Start: 01-12-2024 End: 01-12-2024 Patient encounter procedure 01/12/2024 2:00 PM EDT Office Visit [facility] [address] [place] [address] Noel Jasso MD [address] [place] [address] [facility] Start: 01-11-2024 End: 01-11-2024 Patient encounter procedure 01/11/2024 2:00 PM EDT Office Visit [facility] [address] [place] [address] Noel Jasso MD [address] [place] [address] [facility] Start: 01-09-2024 End: 01-09-2024 Patient encounter procedure 01/09/2024 2:00 PM EDT Office Visit [facility] [address] [place] [address] Noel Jasso MD [address] [place] [address] [facility] Start: 01-05-2024 End: 01-05-2024 Patient encounter procedure 01/05/2024 2:00 PM EDT Office Visit [facility] [address] [place] [address] Noel Jasso MD [address] [place] [address] [facility] Start: 01-04-2024 End: 01-04-2024 Patient encounter procedure 01/04/2024 2:00 PM EDT Office Visit [facility] [address] [place] [phone] Noel Jasso MD [address] [place] [address] [facility] Start: 01-02-2024 End: 01-02-2024 Patient encounter procedure 01/02/2024 2:00 PM EDT Office Visit [facility] [address] [place] [address] Noel Jasso MD [address] [place] [address] [facility] Start: 12-29-2023 End: 12-29-2023 Patient encounter procedure 12/29/2023 2:00 PM EDT Office Visit [facility] [address] [place] [address] Noel Jasso MD [address] [place] [address] [facility] Start: 12-28-2023 End: 12-28-2023 Patient encounter procedure 12/28/2023 2:00 PM EDT Office Visit [facility] [address] [place] [address] Noel Jasso MD [address] [place] [address] [facility] Start: 12-27-2023 End: 12-27-2023 Patient encounter procedure [facility] Start: 12-26-2023 End: 12-26-2023 Patient encounter procedure 12/26/2023 2:00 PM EDT Office Visit [facility] [address] [place] [address] Noel Jasso MD [address] [place] [address] [facility] Start: 12-22-2023 End: 12-22-2023 Patient encounter procedure 12/22/2023 2:00 PM EDT Office Visit [facility] [address] [place] [address] Noel Jasso MD [address] [place] [address] [facility] Start: 12-21-2023 End: 12-21-2023 Patient encounter procedure 12/21/2023 2:00 PM EDT Office Visit [facility] [address] [place] [address] Noel Jasso MD [address] [place] [address] [facility] Start: 12-19-2023 End: 12-19-2023 Patient encounter procedure 12/19/2023 2:00 PM EDT Office Visit [facility] [address] [facility] [address] Noel Jasso MD [address] [place] [address] [facility] Start: 12-15-2023 End: 12-15-2023 Patient encounter procedure 12/15/2023 2:00 PM EDT Office Visit [facility] [address] [place] [phone] Noel Jasso MD [address] [place] [address] [facility] Start: 12-14-2023 End: 12-14-2023 Patient encounter procedure 12/14/2023 2:00 PM EDT Office Visit [facility] [address] [place] [phone] Noel Jasso MD [address] [place] [address] [facility] Start: 12-13-2023 End: 12-13-2023 Patient encounter procedure 12/13/2023 4:30 PM EDT Office Visit [facility] [address] [place] [phone] Arlyn Guzman MD [address] [place], [place] [phone] [facility] Start: 12-12-2023 End: 12-12-2023 Patient encounter procedure 12/12/2023 2:00 PM EDT Office Visit [facility] [address] [place] [address] Noel Jasso MD [address] [place] [address] [facility] Start: 12-08-2023 End: 12-08-2023 Patient encounter procedure 12/08/2023 2:00 PM EDT Office Visit [facility] [address] [place] [address] Noel Jasso MD [address] [place] [address] [facility] Start: 12-07-2023 End: 12-07-2023 Patient encounter procedure 12/07/2023 2:00 PM EDT Office Visit [facility] [address] [place] [address] Noel Jasso MD [address] [place] [address] [facility] Start: 12-05-2023 End: 12-05-2023 Patient encounter procedure [facility] Start: 12-01-2023 End: 12-01-2023 Patient encounter procedure 12/01/2023 2:00 PM EDT Office Visit [facility] [address] [place] [address] Noel Jasso MD [address] [place] [address] [facility] Start: 11-30-2023 End: 11-30-2023 Patient encounter procedure 11/30/2023 2:00 PM EDT Office Visit [facility] [address] [facility] [facility] [place] [address] Noel Jasso MD [address] [place], [place] [phone] [facility] Start: 11-25-2023 End: 11-25-2023 Clinical Support 11/25/2023 11:00 AM EST Clinical Support [facility] [address] [place] [phone] Noel Jasso MD [address] [place], [place] [phone] [facility] Start: 11-14-2023 End: 10-31-2024 Basic metabolic 2000 panel - Serum or Plasma Basic Metabolic Panel Lab Routine Chronic HFrEF (heart failure with reduced ejection fraction) ([facility]) Expected: 11/14/2023 (Approximate), Expires: 10/31/2024 [facility] Work Phone: Comment on above: Expected: 11/14/2023 (Approximate), Expi res: 10/31/2024 Start: 11-08-2023 End: 11-08-2023 Patient encounter procedure 11/08/2023 3:15 PM EST Office Visit [facility] [address] [place] [phone] Arlyn Guzman MD [address] [place] [address] [facility] Start: 11-01-2023 End: 11-01-2023 Patient encounter procedure 11/01/2023 9:00 AM EST Office Visit [facility] [address] [place] [phone] Jorge Maier MD [address] [facility] N [facility] [place] [phone] [facility] Start: 10-31-2023 End: 10-31-2023 Patient encounter procedure 10/31/2023 10:30 AM EST Office Visit [facility] [address] [place] [phone] Arlyn Guzman MD [address], [place], [place] [phone] Grecia Tatum, HAND INSERTER OPERATOR-LABORATORY MANAGER [address] [place], [place] [phone] [facility] Start: 10-28-2023 End: 10-28-2023 Patient encounter procedure 10/28/2023 8:30 AM EST Office Visit [facility] [address] [place] [phone] Arlyn Guzman MD [address], [place], [place] [phone] [facility] Start: 10-24-2023 End: 2024 Basic metabolic 2000 panel - Serum or Plasma Basic Metabolic Panel Lab Routine Syncope, unspecified syncope type Expected: 10/24/2023 (Approximate), Expires: 2024 [facility] Work Phone: Comment on above: Expected: 10/24/2023 (Approximate), Expi res: 2024 Start: 09-29-2023 End: 09-29-2024 Comprehensive metabolic 2000 panel - Serum or Plasma Comprehensive metabolic panel Lab Routine Uncontrolled type 2 diabetes mellitus with hyperglycemia ([facility]) Chronic HFrEF (heart failure with reduced ejection fraction) ([facility] Expected: 09/29/2023 (Approximate), Expires: 09/29/2024 [employer] Work Phone: Comment on above: Expected: 09/29/2023 (Approximate), Expi res: 09/29/2024 Start: 09-29-2023 End: 09-29-2024 Hemoglobin A1c/Hemoglobin.total in Blood Hemoglobin A1c Lab Routine Uncontrolled type 2 diabetes mellitus with hyperglycemia ([facility]) Chronic HFrEF (heart failure with reduced ejection fraction) ([facility] Expected: 09/29/2023 (Approximate), Expires: 09/29/2024 [facility] Comment on above: Expected: 09/29/2023 (Approximate), Expi res: 09/29/2024 Start: 09-29-2023 End: 09-29-2024 Lipid 1996 panel - Serum or Plasma Lipid profile Lab Routine Chronic HFrEF (heart failure with reduced ejection fraction) ([facility] Expected: 09/29/2023 (Approximate), Expires: 09/29/2024 [facility] Comment on above: Expected: 09/29/2023 (Approximate), Expi res: 09/29/2024 Start: 09-29-2023 End: 09-29-2024 Magnesium [Mass/volume] in Serum or Plasma Magnesium Lab Routine Chronic HFrEF (heart failure with reduced ejection fraction) ([facility] Expected: 09/29/2023 (Approximate), Expires: 09/29/2024 [facility] Comment on above: Expected: 09/29/2023 (Approximate), Expi res: 09/29/2024 Start: 09-29-2023 End: 09-29-2024 Phosphate [Mass/volume] in Serum or Plasma Phosphorus Lab Routine Chronic HFrEF (heart failure with reduced ejection fraction) ([facility] Expected: 09/29/2023 (Approximate), Expires: 09/29/2024 [facility] Comment on above: Expected: 09/29/2023 (Approximate), Expi res: 09/29/2024 Start: 09-29-2023 End: 09-29-2024 TSH with Reflex TSH with Reflex Lab Routine Chronic HFrEF (heart failure with reduced ejection fraction) ([facility]) Expected: 09/29/2023 (Approximate), Expires: 09/29/2024 [place] Comment on above: Expected: 09/29/2023 (Approximate), Expi res: 09/29/2024 Start: 08-18-2023 Urine screening for protein Urine Microalbumin [facility] Start: 07-06-2023 Depression Screening Depression Screening [place] Start: 05-20-2023 Influenza vaccination Influenza Vaccine [place] Start: 1998 DTaP,Tdap and Td Vaccines (1 - Tdap) DTaP,Tdap and Td Vaccines (1 - Tdap) [place] Start: 1997 Adult BMI Follow Up Plan Adult BMI Follow Up Plan [place] Start: 1997 Diabetic foot examination Diabetic Foot Exam [facility] Start: 1979 Glaucoma screening Diabetic Ophthalmology Exam [place] BONE CULTURE ([facility]) BONE CU LTURE ([facility]) Lab Routine 06/19/2024 4:11 PM EDT [facility] Work Phone: CARDIOPULMONARY REHABILITATION C[facility]IOPULMONARY REHABILITATION Cardiac Services Ordered: 11/28/2023 [facility] Comment on above: Ordered: 11/28/2023 CARDIOPULMONARY REHABILITATION CARDIOPULMONARY REHABILITATION Cardiac Services Ordered: 11/30/2023 [facility] Comment on above: Ordered: 11/30/2023 HEMODYNAMIC PDF HEMODYNAMIC PDF Cardiac Cath Ordered: 10/14/2023 [facility] Comment on above: Ordered: 10/14/2023 End: 09-29-2024 Natriuretic peptide B [Mass/volume] in Blood B-type natriuretic peptide Lab Routine Chronic HFrEF (heart failure with reduced ejection fraction) ([facility] 1 Occurrences starting 09/29/2023 until 09/29/2024 [place] Comment on above: 1 Occurrences starting 09/29/2023 until 09/29/2024 End: 04-30-2024 [facility] Routine Chronic HFrEF (heart failure with reduced ejection fraction) ([facility]) Per Treatment Plan for 36 Occurrences starting 10/31/2023 until 04/30/2024 [facility] Work Phone: Comment on above: Per Treatment Plan for [address] arting 10/31/2023 until 04/30/2024 Immunizations Immunization Date Immunization Notes Care Provider Candelario welch 10-12-2023 tetanus toxoid, redu mary diphtheria toxoid, and acellular pertussis vaccine, adsorbed [facility] Payers Date Payer Category Payer [employer] BCBS [id number] 2023 Unknown [id number] 2017 Unknown 2017 [employer] [id number] 1979 Unknown [id number] 1979 Unknown [id number] 1979 Unknown [id number] 1979 Unknown [id number] 1979 Unknown [id number] 1979 Unknown [id number] 2.16.840.1.137582.3.579.2 .128 1979 Unknown [id number] 2.16.840.1.378464.3.579.2 .1285 1979 Unknown [id number] 2.16.840.1.794007.3.579.2 .1285 1979 Unknown [id number] 2.16.840.1.851365.3.579.2 .1285 1979 Unknown [id number] 2.16.840.1.021377.3.579.2 .1285 1979 Unknown [id number] 2.16.840.1.434407.3.579.2 .1258 1979 Unknown [id number] 2.16.840.1.175513.3.579.2 .1258 1979 Unknown [id number] 2.16.840.1.082280.3.579.2 .1258 1979 Unknown [id number] 2.16.840.1.797777.3.579.2 .1258 1979 Unknown [id number] 2.16.840.1.970540.3.579.2 .1258 1979 Unknown [id number] 2.16.840.1.594291.3.579.2 .1285 1979 Unknown [id number] 2.16.840.1.083981.3.579.2 .1285 1979 Unknown [id number] 2.16.840.1.626830.3.579.2 .1285 1979 Unknown [id number] 2.16.840.1.636401.3.579.2 .1285 1979 Unknown [id number] 2.16.840.1.526252.3.579.2 .1285 1979 Unknown [id number] 2.16.840.1.677708.3.579.2 .1285 1979 Unknown [id number] 2.16.840.1.418825.3.579.2 .1285 1979 Unknown [id number] 2.16.840.1.315021.3.579.2 .1285 1979 Unknown [id number] 2.16.840.1.616415.3.579.2 .1285 1979 Unknown [id number] 2.16.840.1.829466.3.579.2 .1285 1979 Unknown [id number] 2.16.840.1.064870.3.579.2 .1285 1979 Unknown [id number] 2.16.840.1.041694.3.579.2 .1285 1979 Unknown [id number] 2.16.840.1.249959.3.579.2 .1285 1979 Unknown [id number] 2.16.840.1.035051.3.579.2 .1285 1979 Unknown [id number] 2.16.840.1.222789.3.579.2 .1285 1979 Unknown [id number] 2.16.840.1.161459.3.579.2 .1285 1979 Unknown [id number] 2.16.840.1.562022.3.579.2 .1285 1979 Unknown [id number] 2.16.840.1.966804.3.579.2 .1285 1979 Unknown [id number] 2.16.840.1.710807.3.579.2 .1285 1979 Unknown [id number] 2.16.840.1.598835.3.579.2 .1285 1979 Unknown [id number] 2.16.840.1.314471.3.579.2 .1285 1979 Unknown [id number] 2.16.840.1.255851.3.579.2 .1285 1979 Unknown [id number] 2.16.840.1.257911.3.579.2 .1285 1979 Unknown [id number] 2.16.840.1.260640.3.579.2 .1285 1979 Unknown [id number] 2.16.840.1.495702.3.579.2 .1285 1979 Unknown [id number] 2.16.840.1.761650.3.579.2 .1285 1979 Unknown [id number] 2.16.840.1.389289.3.579.2 .1285 1979 Unknown [id number] 2.16.840.1.521250.3.579.2 .1285 1979 Unknown [id number] 2.16.840.1.675197.3.579.2 .1285 1979 Unknown [id number] 2.16.840.1.021019.3.579.2 .1285 1979 Unknown [id number] 2.16.840.1.627102.3.579.2 .1285 1979 Unknown [id number] 2.16.840.1.976303.3.579.2 .1285 1979 Unknown [id number] 2.16.840.1.851884.3.579.2 .1285 1979 Unknown [id number] 2.16.840.1.116192.3.579.2 .1285 1979 Unknown [id number] 2.16.840.1.009813.3.579.2 .1285 1979 Unknown [id number] 2.16.840.1.279917.3.579.2 .1285 1979 Unknown [id number] 2.16.840.1.316046.3.579.2 .1285 1979 Unknown [id number] 2.16.840.1.700590.3.579.2 .1285 1979 Unknown [id number] 2.16.840.1.928494.3.579.2 .1285 1979 Unknown [id number] 2.16.840.1.431540.3.579.2 .1285 1979 Unknown [id number] 2.16.840.1.418494.3.579.2 .1285 1979 Unknown [id number] 2.16.840.1.462449.3.579.2 .1285 1979 Unknown [id number] 2.16.840.1.718788.3.579.2 .1285 1979 Unknown [id number] 2.16.840.1.686891.3.579.2 .1285 1979 Unknown [id number] 2.16.840.1.801931.3.579.2 .1285 1979 Unknown [id number] 2.16.840.1.940007.3.579.2 .1285 1979 Unknown [id number] 2.16.840.1.633558.3.579.2 .1285 1979 Unknown [id number] 2.16.840.1.823162.3.579.2 .1285 1979 Unknown [id number] 2.16.840.1.566272.3.579.2 .1285 1979 Unknown [id number] 2.16.840.1.116551.3.579.2 .1285 1979 Unknown [id number] 2.16.840.1.465987.3.579.2 .1285 1979 Unknown [id number] 2.16.840.1.831742.3.579.2 .1285 1979 Unknown [id number] 2.16.840.1.161530.3.579.2 .1285 1979 Unknown [id number] 2.16.840.1.352188.3.579.2 .1285 1979 Unknown [id number] 2.16.840.1.472938.3.579.2 .1285 1979 Unknown [id number] 2.16.840.1.088382.3.579.2 .1286 1979 Unknown [id number] 2.16.840.1.456709.3.579.2 .1286 1979 Unknown [id number] 2.16.840.1.328344.3.579.2 .1286 1979 Unknown [id number] 2.16.840.1.129688.3.579.2 .1286 1959 Unknown [id number] Social History Date Type Detail Facility Start: 06-28-2022 End: 07-03-2024 Caffeine use Caffeine use [facility] Start: 07-06-2022 End: 05-11-2024 Tobacco smoking status OHIS Ex-smoker [facility] End: 01-22-2018 History of tobacco use Current smoker [facility] End: 01-22-2018 History of tobacco use Cigarette Smoker [facility] Start: 07-06-2022 End: 01-04-2024 Tobacco use and exposure Smokeless tobacco non-user [facility] Start: 09-29-2023 End: 07-03-2024 Alcohol intake Lifetime non-drinker (finding) [facility] Start: 06-28-2022 End: 07-03-2024 Social connection and isolation panel [facility] Do you belong to any clubs or organizations such as oriental orthodox groups, unions, fraternal or athletic groups, or school groups? No [facility] Are you now , , , , never or living with a partner? [facility] How often to you hav e a drink containing alcohol? Never [facility] How many standard dr inks containing alcohol do you have on a typical day? Patient does not drink [facility] Do you feel stress - tense, restless, nervous, or anxious, or unable to sleep at night because your mind is troubled all the time - these days [OSQ] Rather much [facility] Start: 01-22-2019 Alcohol Comment Occasionally [facility] Start: 1980 Sex Assigned At Not on file [facility] How often to you hav e a drink containing alcohol? Monthly or less [facility] How many standard dr inks containing alcohol do you have on a typical day? 1 or 2 [facility] Start: 10-31-2023 End: 06-20-2024 Alcohol intake [facility]-drinker (finding) [facility] Start: 10-31-2023 Alcohol Comment no [facility] Has the [employer], [employer], [employer], or water [employer] threatened to shut off services in your home in past 12Mo [facility] Start: 05-11-2024 Tobacco Comment Smoked [facility] Procedure Code Equipment Code Equipment Origin al Text Equipment Identifier Dates 90 each by miscellaneous route 3 (three) times a day. [id number] Start: 09-29-2023 90 each by miscellaneous route 3 (three) times a day. [id number] Start: 08-10-2022 End: 09-29-2023 Recorder Crd Radha q Ii Ins - [id number] Start: 02-08-2024 Test ac [id number] Start: 06-20-2024 For blood sugar testing, ac [id number] Start: 06-20-2024 Check at least o nce per day in morning before food. Max 3 time per day. [id number] Start: 06-20-2024 Goals Date Patient Goal Desired Activity /State Personal health goal Comment on above: Formatting of this n ote might be different from the original. Evaluation of progress towards goal: safe transition from hospital to home with family support. Personal health goal Comment on above: Formatting of this n ote might be different from the original. Evaluation of progress towards goal: In progress: Return home Personal health goal Comment on above: Formatting of this n ote might be different from the original. Evaluation of progress towards goal: patient plans to return home with self care and support of . Clinical Notes 09-29-2023 to 07-03-2024 Bib Sanz DPM - 07/03/2024 8:45 AM EDTPatient InstructionsStelba Sanz DPM - 06/26/2024 4:30 PM EDTTelephone Encounter - Lucien Casarez - 06/22/2024 10:58 AM EDTPatient Instructions Note Date & Type Note Facility 07-03-2024 History of Present illness Narrative Images from the original note were not included. Subjective Patient ID: Jorge Rose III is a 43 y.o. male who presents for POV #2 (Jorge Rose III is a 43 y.o. male who presents for Post-op #2. Patient relates he continues Antibiotics prescribed by Dr. Verdugo, and continues IV antibiotics 3 times daily, however PICC line came out over the weekend and patient is having replaced today. Dr. Guzman/Dylan 05/16/2024 BS 176. SS 11). HPI Post-operative assessment: Amputation right great toe. Date of procedure: 06/19/2024. Patient completed doxycycline and Augmentin therapy. On follow-up with Infectious Disease; patient was placed on IV antibiotic therapy (patient does not know the name); along with additional oral antibiotic therapy (does not know the name). Patient denies streaking or constitutional symptoms. Patient has resumed daily ASA. Reports mild surgical site discomfort. Reports a recent incident of falling off of the roll about device and pulling out his PICC line; and is scheduled for replacement of PICC line later today Medications Current Outpatient Medications: aspirin 81 MG EC tablet, Take 81 mg by mouth in the morning., Disp: , Rfl: atorvastatin (Lipitor) 40 MG tablet, Take 40 mg by mouth at bedtime, Disp: , Rfl: carvedilol (Coreg) 25 MG tablet, Take 25 mg by mouth in the morning and 25 mg in the evening., Disp: , Rfl: collagenase 250 UNIT/GM ointment, Apply 1 Application topically in the morning., Disp: , Rfl: dapagliflozin (Farxiga) 10 MG, Take 10 mg by mouth in the morning., Disp: , Rfl: Entresto 24-26 MG tablet, Take 1 tablet by mouth in the morning and 1 tablet in the evening., Disp: , Rfl: furosemide (Lasix) 20 MG tablet, Take 20 mg by mouth in the morning., Disp: , Rfl: insulin aspart FlexPen (NovoLOG) 100 UNIT/ML pen, 15u in AM with meal, 15u in evening with meal, Disp: , Rfl: insulin lispro (HumaLOG KWIKPEN) 100 UNIT/ML injection, Inject by subcutaneous route., Disp: , Rfl: lisinopril 20 MG tablet, Take 20 mg by mouth in the morning., Disp: , Rfl: spironolactone (Aldactone) 25 MG tablet, Take 25 mg by mouth in the morning., Disp: , Rfl: Allergies Patient has no known allergies. Past Surgical History Past Surgical History: Procedure Laterality Date CT ANGIOGRAM HEART CORONARY 01/22/2019 CT ANGIOGRAM TAVR 01/22/2019 LOOP RECORDER IMPLANT 12/2023 Family History No family history on file. Objective General assessment: Alert and oriented. Pleasant disposition. Presents ambulatory with cane assist; Darco shoe in place. Accompanied by his mother. Vascular: DP 2/4 bilateral. PT 2/4 bilateral. CFT brisk all remaining digits. Gradient temperature: Warm-warm all remaining digits. Unremarkable for ankle edema. Neurologic: Tactile and light touch sensation compromised. Dermatologic: Right foot: Incision line gapping and dehiscence is more evident today; without deep extension or probing. Superficial wound bed, moist, clean and granular; with serous drainage. All sutures remain intact. The soft tissue flaps remain well-perfused and viable; without ischemic necrosis. There is no appreciable or obvious cellulitis or streaking. Orthopedic: Range of motion: Functional ankle and subtalar joint range of motion Radiology: 3 views right foot: DP, oblique, lateral: 06/18/2024: Extensive erosive and osteolysis changes of the proximal and distal phalanges of the great toe; consistent with direct extension osteomyelitis. Localized soft tissue swelling without soft tissue emphysema or foreign body. Hallux extensus deformity, consistent with clinical findings; reflecting soft tissue deficit and loss of flexor function. The distal aspect of the 1st metatarsal appears to be intact without erosive or lytic changes. Assessment/Plan POD #14: Amputation right great toe at MTP joint (06/19/2024). Surgical site dehiscence.. IDDM. Diabetic peripheral neuropathy. Plan: Review of clinical findings, post-surgical course to date, treatment strategy and objectives. Right foot: Aseptic technique: Surgical site cleansing. All sutures are removed without incident. Silver alginate dressing secured with Steri-Strips; followed by a multi-layer dry sterile dressing; under mild Coban compression. Clean, dry and intact; not to be removed. Elevation is encouraged and emphasized. Partial weight-bearing status permitted to the right heel for balance with Darco shoe, cane or walker assist. Also recommend use of roll about device as needed. Continue IV and oral antibiotic therapy per Infectious Disease. Procedure: This note was created with the assistance of a speech recognition program. While intending to generate a timely document that accurately reflects the content of the visit, no guarantee can be provided that every grammatical or spelling mistake has been or will be identified or corrected. Thank you for your understanding. Bib Sanz DPM documented in this encounter [facility] 07-03-2024 Instructions Bib Sanz DPM - 07/03/2024 8:45 AM EDT Instructions as noted documented in this encounter [facility] 06-29-2024 Note Received voicemail demetrius Francois at [facility] stating that they received a referral for nurses to come to the patient's home, but they need the order to be for home health care for jail. Priscila stated that this can be faxed at [phone] or she can receive a verbal order at her confirmed phone number. Her direct extension is [phone]. [facility] 06-27-2024 Note Division of Infectio us Diseases - Outpatient Clinic Note Patient name: Jorge Rose Patient Today's Date and Time: 06/27/2024, 10:39 AM Primary Care Physician: Arlyn Guzman MD Reason for consultation / Chief complaint: Right foot infection History of Present Illness: This is a 43-year old male patient who was initially admitted on May 05, 2024. He had developed a wound on his great toe from his shoe. He presented to the emergency department and was found to have a diabetic foot infection with septic arthritis. He underwent a debridement, but no cultures were taken. He was discharged on a 4-week treatment course with Bactrim and levofloxacin. The patient had completed a hospital follow-up with our service on May 29, 2024. At that time, he was exhibiting persistent symptoms of infection. He was transitioned to oral Augmentin and doxycycline. These were to continue for 2 weeks of treatment. He had then followed up on June 12, 2024. At that time, he had just started his antibiotics. He was awaiting a follow up with podiatry. He was to continue on his treatment course as prescribed. He is completing a subsequent follow up with our service today to evaluate for any change of symptoms.Of note, on June 19, 2024, the patient underwent amputation of the right great toe at the level of the MTP joint.He was maintained on treatment with oral Augmentin and doxycycline. He reports he was prescribed a 10-day treatment course of both antibiotics. He has been taking both antibiotics as prescribed. He denied having any side effects. He denied having any fevers, chills, chest pain, shortness of breath, abdominal pain, nausea, vomiting, or diarrhea. He followed up with his shovel operator yesterday, and he reports he was told by his shovel operator that he was pleased with the healing of the amputation site. His blood sugars have been well-controlled and less than 160. Past Medical History: No past medical history on file. Past Surgical History: No past surgical history on file. Medications: Social History: Social History Socioeconomic History Marital status: Spouse name: Not on file Number of children: Not on file Years of education: Not on file Highest education level: Not on file Occupational History Not on file Tobacco Use Smoking status: Not on file Smokeless tobacco: Not on file Substance and Sexual Activity Alcohol use: Not on file Drug use: Not on file Sexual activity: Not on file Other Topics Concern Not on file Social History Narrative Not on file Social Determinants of Health Financial Resource Strain: Not on file Food Insecurity: Not on file Transportation Needs: Not on file Physical Activity: Not on file Stress: Not on file Social Connections: Not on file Intimate Partner Violence: Not on file Housing Stability: Not on file Family History: No family history on file. Immunization History: Immunization History Administered Date(s) Administered Tdap 10/12/2023 Allergies: No Known Allergies Review of Systems: General: No fevers or chills. Eyes: No double vision or blurry vision. ENT: No sore throat or runny nose. Cardiovascular: No chest pain or palpitations. Lung: No shortness of breath or cough. Abdomen: No nausea, vomiting, diarrhea, or abdominal pain. Genitourinary: No increased urinary frequency, or dysuria. Musculoskeletal: No muscle aches or pains. Hematologic: No bleeding or bruising. Neurologic: No headache, weakness, numbness, or tingling. Objective Physical Examination: Vitals: 06/27/24 1019 BP: 123/80 Pulse: 78 Resp: 16 SpO2: 96% Weight: 103 kg (226 lb) Height: 1.575 m (5' 2 ) General Appearance: awake, alert, oriented, in no acute distress Lungs: Normal expansion. Clear to auscultation. No rales, rhonchi, or wheezing. Heart: Heart sounds are normal. Regular rate and rhythm without murmur, gallop or rub. Abdomen: Soft, non-tender, normal bowel sounds; no bruits, organomegaly or masses. Skin: No rash. Amputation site of right great toe does not have any significant drainage from the area. There is no erythema or swelling progressing up the right lower extremity. Psych exam: alert,oriented, in NAD with a full range of affect, normal behavior and no psychotic features Impression and Recommendations: 1. Acute osteomyelitis of right foot (CMS/HCC) This is a patient who has been suffering from a diabetic foot infection of the right great toe. He underwent amputation of the great toe on June 19, 2024. Pathology showed viable tissue margins with inflammation at the site, but a bone culture from the proximal are showed multidrug-resistant Pseudomonas aeruginosa and Enterococcus faecalis. The patient was maintained on oral Augmentin and doxycycline for 10 days by his shovel operator. He is not currently suffering from any systemic symptoms of infection. Suzanne (more content not included)... [facility] 06-26-2024 History of Present illness Narrative Images from the original note were not included. Subjective Patient ID: Jorge Rose III is a 43 y.o. male who presents for Post-op (Established pt presents today for POV#1. Pt relates doing well. Has not been able to check blood sugars from lack of supplies. ). HPI Post-operative assessment: Amputation right great toe. Date of procedure: 06/19/2024. Patient reports good compliance with Augmentin and doxycycline therapy; noting no adverse effects. Again notes a moderate amount of through dressing drainage within 2 days of last dressing change; which stopped and gradually hardened. Patient denies streaking or constitutional symptoms. Patient has held daily ASA. Reports mild surgical site discomfort; gradually subsiding symptoms. Medications Current Outpatient Medications: amoxicillin-clavulanate (Augmentin) 875-125 MG tablet, Take 1 tablet (875 mg) by mouth in the morning and 1 tablet (875 mg) before bedtime. Do all this for 10 days., Disp: 20 tablet, Rfl: 0 aspirin 81 MG EC tablet, Take 81 mg by mouth in the morning., Disp: , Rfl: atorvastatin (Lipitor) 40 MG tablet, Take 40 mg by mouth at bedtime, Disp: , Rfl: carvedilol (Coreg) 25 MG tablet, Take 25 mg by mouth in the morning and 25 mg in the evening., Disp: , Rfl: ciprofloxacin (Cipro) 500 MG tablet, Take 1 tablet (500 mg) by mouth in the morning and 1 tablet (500 mg) before bedtime. Do all this for 10 days., Disp: 20 tablet, Rfl: 0 collagenase 250 UNIT/GM ointment, Apply 1 Application topically in the morning., Disp: , Rfl: dapagliflozin (Farxiga) 10 MG, Take 10 mg by mouth in the morning., Disp: , Rfl: doxycycline (Vibramycin) 100 MG capsule, Take 1 capsule (100 mg) by mouth in the morning and 1 capsule (100 mg) before bedtime. Do all this for 10 days. Take with at least 8 ounces (large glass) of water, do not lie down for 30 minutes after., Disp: 20 capsule, Rfl: 0 doxycycline (Vibramycin) 100 MG capsule, Take 1 capsule (100 mg) by mouth in the morning and 1 capsule (100 mg) before bedtime. Do all this for 10 days. Take with at least 8 ounces (large glass) of water, do not lie down for 30 minutes after., Disp: 20 capsule, Rfl: 0 Entresto 24-26 MG tablet, Take 1 tablet by mouth in the morning and 1 tablet in the evening., Disp: , Rfl: furosemide (Lasix) 20 MG tablet, Take 20 mg by mouth in the morning., Disp: , Rfl: insulin aspart FlexPen (NovoLOG) 100 UNIT/ML pen, 15u in AM with meal, 15u in evening with meal, Disp: , Rfl: insulin lispro (HumaLOG KWIKPEN) 100 UNIT/ML injection, Inject by subcutaneous route., Disp: , Rfl: lisinopril 20 MG tablet, Take 20 mg by mouth in the morning., Disp: , Rfl: spironolactone (Aldactone) 25 MG tablet, Take 25 mg by mouth in the morning., Disp: , Rfl: Allergies Patient has no known allergies. Past Surgical History Past Surgical History: Procedure Laterality Date CT ANGIOGRAM HEART CORONARY 01/22/2019 CT ANGIOGRAM TAVR 01/22/2019 LOOP RECORDER IMPLANT 12/2023 Family History No family history on file. Objective General assessment: Alert and oriented. Pleasant disposition. Presents ambulatory with cane assist; Darco shoe in place. Accompanied by his mother. Vascular: DP 2/4 bilateral. PT 2/4 bilateral. CFT brisk all remaining digits. Gradient temperature: Warm-warm all remaining digits. Unremarkable for ankle edema. Neurologic: Tactile and light touch sensation compromised. Dermatologic: Right foot: Incision well coapted primary intention with a small amount of superficial dehiscence centrally. There is no appreciable incisional drainage or bleeding. Soft tissue flaps remained well-perfused. Localized swelling without soft tissue fluctuance, erythema, warmth or streaking. Orthopedic: Range of motion: Functional ankle and subtalar joint range of motion Radiology: 3 views right foot: DP, oblique, lateral: 06/18/2024: Extensive erosive and osteolysis changes of the proximal and distal phalanges of the great toe; consistent with direct extension osteomyelitis. Localized soft tissue swelling without soft tissue emphysema or foreign body. Hallux extensus deformity, consistent with clinical findings; reflecting soft tissue deficit and loss of flexor function. The distal aspect of the 1st metatarsal appears to be intact without erosive or lytic changes. Assessment/Plan POD #7: Amputation right great toe at MTP joint (06/19/2024). Healing well without apparent complication. IDDM. Diabetic peripheral neuropathy. Plan: Review of clinical findings, post-surgical course to date, treatment strategy and objectives. Right foot: Aseptic technique: Surgical site cleansing. Betadine solution to the incision line; followed by a multi-layer dry sterile dressing; under mild Coban compression. Clean, dry and intact; not to be removed. Elevation is encouraged and emphasized. Partial weight-bearing status permitted to the right heel for balance with Darco shoe, cane or walker assist. Also recommend use of roll about device as needed. Continue Augmentin and doxycycline therapy. Scheduled appointment with infectious disease tomorrow. Patient may resume daily ASA therapy. Procedure: This note was created with the assistance of a speech recognition program. While intending to generate a timely document that accurately reflects the content of the visit, no guarantee can be provided that every grammatical or spelling mistake has been or will be identified or corrected. Thank you for your understanding. Bib Sanz DPM documented in this encounter [facility] 06-22-2024 Telephone encounter Note Patient called stating that his pharmacy did not received antibiotic Rx. [facility] 06-22-2024 Miscellaneous Notes Patient called stating that his pharmacy did not received antibiotic Rx. documented in this encounter [facility] 06-21-2024 History of Present illness Narrative Images from the original note were not included. Subjective Patient ID: Jorge Rose III is a 43 y.o. male who presents for Post-op (Established pt presents today as an urgent add-on for dressing change. Pt's dressing was fully soaked in blood, pt relates stopping aspirin the day before surgery. ). HPI Post-operative assessment: Amputation right great toe. Date of procedure: 06/19/2024. Patient presents on an urgent/add on basis with progressive bleeding through the dressing; saturating the Darco shoe. Patient denies streaking or constitutional symptoms. Patient has held daily ASA. Reports moderate surgical site discomfort; well-controlled. Medications Current Outpatient Medications: amoxicillin-clavulanate (Augmentin) 875-125 MG tablet, Take 1 tablet (875 mg) by mouth in the morning and 1 tablet (875 mg) before bedtime. Do all this for 10 days., Disp: 20 tablet, Rfl: 0 aspirin 81 MG EC tablet, Take 81 mg by mouth in the morning., Disp: , Rfl: atorvastatin (Lipitor) 40 MG tablet, Take 40 mg by mouth at bedtime, Disp: , Rfl: carvedilol (Coreg) 25 MG tablet, Take 25 mg by mouth in the morning and 25 mg in the evening., Disp: , Rfl: collagenase 250 UNIT/GM ointment, Apply 1 Application topically in the morning., Disp: , Rfl: dapagliflozin (Farxiga) 10 MG, Take 10 mg by mouth in the morning., Disp: , Rfl: doxycycline (Vibramycin) 100 MG capsule, Take 1 capsule (100 mg) by mouth in the morning and 1 capsule (100 mg) before bedtime. Do all this for 10 days. Take with at least 8 ounces (large glass) of water, do not lie down for 30 minutes after., Disp: 20 capsule, Rfl: 0 Entresto 24-26 MG tablet, Take 1 tablet by mouth in the morning and 1 tablet in the evening., Disp: , Rfl: furosemide (Lasix) 20 MG tablet, Take 20 mg by mouth in the morning., Disp: , Rfl: insulin aspart FlexPen (NovoLOG) 100 UNIT/ML pen, 15u in AM with meal, 15u in evening with meal, Disp: , Rfl: insulin lispro (HumaLOG KWIKPEN) 100 UNIT/ML injection, Inject by subcutaneous route., Disp: , Rfl: lisinopril 20 MG tablet, Take 20 mg by mouth in the morning., Disp: , Rfl: spironolactone (Aldactone) 25 MG tablet, Take 25 mg by mouth in the morning., Disp: , Rfl: Allergies Patient has no known allergies. Past Surgical History Past Surgical History: Procedure Laterality Date CT ANGIOGRAM HEART CORONARY 01/22/2019 CT ANGIOGRAM TAVR 01/22/2019 LOOP RECORDER IMPLANT 12/2023 Family History No family history on file. Objective General assessment: Alert and oriented. Pleasant disposition. Presents ambulatory with cane assist; Darco shoe in place. Accompanied by his mother. Vascular: DP 2/4 bilateral. PT 2/4 bilateral. CFT brisk all remaining digits. Gradient temperature: Warm-warm all remaining digits. Unremarkable for ankle edema. Neurologic: Tactile and light touch sensation compromised. Dermatologic: Right foot: Incision well coapted primary intention with minimal incision line drainage or bleeding. The areas notably macerated and malodorous. Unremarkable for pustular drainage, cellulitis or clinical evidence of infection. Unremarkable for hematoma. Soft tissue flaps well-perfused. All sutures are intact. Upon presentation, the dressing is noted to be completely saturated with moist hemorrhagic drainage. Orthopedic: Range of motion: Functional ankle and subtalar joint range of motion Radiology: 3 views right foot: DP, oblique, lateral: 06/18/2024: Extensive erosive and osteolysis changes of the proximal and distal phalanges of the great toe; consistent with direct extension osteomyelitis. Localized soft tissue swelling without soft tissue emphysema or foreign body. Hallux extensus deformity, consistent with clinical findings; reflecting soft tissue deficit and loss of flexor function. The distal aspect of the 1st metatarsal appears to be intact without erosive or lytic changes. Assessment/Plan POD #2: Amputation right great toe at MTP joint (06/19/2024). Excessive bleeding through the dressing. Otherwise healing well without complication. IDDM. Diabetic peripheral neuropathy. Plan: Review of clinical findings, treatment strategy and objectives. Right foot: Aseptic technique: Surgical site cleansing. Betadine solution to the incision line; followed by Adaptic and a multi-layer dry sterile dressing; under mild Coban compression. Clean, dry and intact; not to be removed. Elevation is encouraged and emphasized. Partial weight-bearing status permitted to the right heel for balance, cane or walker assist. Also recommend use of roll about device as needed. Patient is to continue Augmentin and doxycycline therapy. Continue to hold ASA. Scheduled appointment with infectious disease next week. Procedure: This note was created with the assistance of a speech recognition program. While intending to generate a timely document that accurately reflects the content of the visit, no guarantee can be provided that every grammatical or spelling mistake has been or will be identified or corrected. Thank you for your understanding. Bib Sanz DPM documented in this encounter [facility] 06-21-2024 Telephone encounter Note Patient's mother left a message over lunch stating that blood has seeped through the second layer of gauze and is concerned about keeping the surgical site dry. She is wondering if someone could take a look at it. [facility] 06-21-2024 Miscellaneous Notes Patient's mother left a message over lunch stating that blood has seeped through the second layer of gauze and is concerned about keeping the surgical site dry. She is wondering if someone could take a look at it. documented in this encounter [facility] 06-20-2024 Miscellaneous Notes Patient called ACN asking if he could have a prescription for a glucose meter be sent to [facility]. Patient had toe amputation done yesterday and is doing well. [facility] with supplies[facility]isha: please fax over for anything that printed as needed. Please call and notify patient. Thanks, ARLYN GUZMAN MD 06/20/24 Thank you both. Contact Type: Direct contact - Phone call with patient - general ACN called patient to update on glucometer, message left on VM. Orders faxed to pharmacy yesterday. documented in this encounter [place] 06-20-2024 Telephone encounter Note Patient called ACN asking if he could have a prescription for a glucose meter be sent to [facility]. Patient had toe amputation done yesterday and is doing well. [facility] Work Phone: 06-20-2024 Telephone encounter Note Rx/order sent to pharmacy for glucomenter with supplies, Alisha: please fax over for anything that printed as needed. Please call and notify patient. Thanks, ARLYN GUZMAN MD 06/20/24 [place] 06-20-2024 Telephone encounter Note Thank you both. [facility] 06-20-2024 Telephone encounter Note Contact Type: Direct contact - Phone call with patient - general ACN called patient to update on glucometer, message left on VM. [place] 06-20-2024 Telephone encounter Note Orders faxed to pharmacy yesterday. [place] 06-20-2024 Telephone encounter Note Patient called requesting a Rx for pain Medication [facility] 06-20-2024 Miscellaneous Notes Patient called requesting a Rx for pain Medication documented in this encounter [facility] 06-19-2024 History of Present illness Narrative Outpatient procedure PMH. Amputation right great toe at MTP joint. Continue Augmentin and doxycycline therapy. Bony tissue submitted for culture and sensitivity. documented in this encounter [facility] 06-19-2024 Instructions Bib Sanz DPM - 06/19/2024 3:30 PM EDT Post-operative instructions provided documented in this encounter [facility] 06-18-2024 Miscellaneous Notes Preoperative Education Checklist- General Surgery date: 06/19/31 Surgery time: 1530 Arrival time: 1430 1. Bring a photo ID and your insurance card with you the day of surgery. You will check in at the main lobby of the [facility]- registration desk is straight ahead as soon as you walk in. Tell them you are here for surgery. 2. If you have a Living Will/Durable Power of Wellness Program Coordinator for Health Care that is not on file here, please bring a copy the day of surgery. 3. Please shower/bathe the night before surgery with the provided soap or wipes. Do not shower the morning of surgery- you will do use wipes when you arrive here at the hospital before getting into your surgical gown. Do not shave the area of your procedure for 2 days prior to your surgery. 4. NO powder, lotion, perfume/cologne, aftershave, make-up, deodorant, or hair products after you have bathed. 5. NO nail grenadian/acrylic on at least one finger. If you are having a hand, wrist or foot surgery then all nail grenadian and artificial/acrylic nails must be removed from that hand or foot. 6. Avoid ALL Aspirin and non-steroidal anti-inflammatory drugs and certain vitamins (Ibuprofen, Advil, Aleve, Excedrin, Meloxicam, Celebrex, fish/krill oil, etc.) for 7 days prior to surgery as instructed by your surgeon and/or your prescribing doctor. Tylenol IS ALLOWED. If you are on Ticlid, Xarelto, Eliquis, Pradaxa, Plavix or Coumadin, please check with your prescribing doctor for instructions for when to stop them. 7. If you use an inhaler, continue to use it routinely. 8. Nothing to eat or drink (not even water, gum, mints, or hard candy!) AFTER midnight prior to your surgery. 9. Take only medications that you are instructed to on the morning of surgery with a TINY SIP OF WATER. 10. Choose a responsible adult that will be able to drive you home when you are discharged from your hospital stay for your surgery and can stay with you in your home for 24 hours after your procedure. You must NOT drive any vehicle or operate any machinery for 24 hours after surgery. 11. When you dress for your appointment, please wear loose fitting clothing that is appropriate to accommodate your surgical area procedure. BRING WITH YOU ANY DEVICES YOU MAY NEED: ROSANA hose, ice machine, sling/swath, brace or special shoe, oversized zip-up or button up shirt, CPAP machine if staying overnight. 12. Do NOT wear jewelry, watches, or any piercings or metal for surgery- leave these valuables and money at home. 13. Do NOT wear contact lenses for surgery- glasses are okay if needed. 14. The anesthesiologist will talk with you the day of surgery and will ask you to sign a Consent Form. 15. Refrain from smoking or any type of tobacco use for at least 8 hours and marijuana for 24 hours prior to arrival for your surgery. 16. If a GREEN BLOOD band is given to you, please bring it with you for the day of surgery. 17. Notify your surgeon if you develop any illness before your surgery. 18. If you are staying overnight, please DO NOT BRING your home medications with you. 19. If you have any questions prior to surgery, please call the Preadmission Testing office at [phone], Mon.-Fri. 7 a.m.-3 p.m. Leave a voicemail if needed. Pre-Surgery Instructions: Medication Instructions aspirin 81 mg Stop taking 1 week prior to procedure atorvastatin (LIPITOR) 40 mg tablet Check with prescribing doctor for instructions carvediloL (COREG) 25 mg tablet Check with prescribing doctor for instructions collagenase (SantyL) ointment Check with prescribing doctor for instructions collagenase (SANTYL) ointment Check with prescribing doctor for instructions dapagliflozin propanediol (FARXIGA) 10 mg tablet Check with prescribing doctor for instructions furosemide (LASIX) 20 mg tablet Check with prescribing doctor for instructions insulin aspart U-100 (NovoLOG Flexpen U-100 Insulin) 100 unit/mL (3 mL) insulin pen Check with prescribing doctor for instructions insulin aspart U-100 (NovoLOG) 100 unit/mL injection Check with prescribing doctor for instructions insulin detemir U-100 (LEVEMIR FLEXTOUCH U100 INSULIN) 100 unit/mL (3 mL) insulin pen Check with prescribing doctor for instructions metFORMIN (GLUCOPHAGE) 500 mg tablet Check with prescribing doctor for instructions pen needle, diabetic 31 gauge x 1/4 needle Check with prescribing doctor for instructions sacubitriL-valsartan (ENTRESTO) 24-26 mg tablet Check with prescribing doctor for instructions spironolactone (ALDACTONE) 25 mg tablet Check with prescribing doctor for instructions documented in this encounter [facility] 06-18-2024 Nurse Note Preoperative Education Checklist- General Surgery date: 06/19/31 Surgery time: 1530 Arrival time: 1430 1. Bring a photo ID and your insurance card with you the day of surgery. You will check in at the main lobby of the [facility]- registration desk is straight ahead as soon as you walk in. Tell them you are here for surgery. 2. If you have a Living Will/Durable Power of Wellness Program Coordinator for Health Care that is not on file here, please bring a copy the day of surgery. 3. Please shower/bathe the night before surgery with the provided soap or wipes. Do not shower the morning of surgery- you will do use wipes when you arrive here at the hospital before getting into your surgical gown. Do not shave the area of your procedure for 2 days prior to your surgery. 4. NO powder, lotion, perfume/cologne, aftershave, make-up, deodorant, or hair products after you have bathed. 5. NO nail grenadian/acrylic on at least one finger. If you are having a hand, wrist or foot surgery then all nail grenadian and artificial/acrylic nails must be removed from that hand or foot. 6. Avoid ALL Aspirin and non-steroidal anti-inflammatory drugs and certain vitamins (Ibuprofen, Advil, Aleve, Excedrin, Meloxicam, Celebrex, fish/krill oil, etc.) for 7 days prior to surgery as instructed by your surgeon and/or your prescribing doctor. Tylenol IS ALLOWED. If you are on Ticlid, Xarelto, Eliquis, Pradaxa, Plavix or Coumadin, please check with your prescribing doctor for instructions for when to stop them. 7. If you use an inhaler, continue to use it routinely. 8. Nothing to eat or drink (not even water, gum, mints, or hard candy!) AFTER midnight prior to your surgery. 9. Take only medications that you are instructed to on the morning of surgery with a TINY SIP OF WATER. 10. Choose a responsible adult that will be able to drive you home when you are discharged from your hospital stay for your surgery and can stay with you in your home for 24 hours after your procedure. You must NOT drive any vehicle or operate any machinery for 24 hours after surgery. 11. When you dress for your appointment, please wear loose fitting clothing that is appropriate to accommodate your surgical area procedure. BRING WITH YOU ANY DEVICES YOU MAY NEED: ROSANA hose, ice machine, sling/swath, brace or special shoe, oversized zip-up or button up shirt, CPAP machine if staying overnight. 12. Do NOT wear jewelry, watches, or any piercings or metal for surgery- leave these valuables and money at home. 13. Do NOT wear contact lenses for surgery- glasses are okay if needed. 14. The anesthesiologist will talk with you the day of surgery and will ask you to sign a Consent Form. 15. Refrain from smoking or any type of tobacco use for at least 8 hours and marijuana for 24 hours prior to arrival for your surgery. 16. If a GREEN BLOOD band is given to you, please bring it with you for the day of surgery. 17. Notify your surgeon if you develop any illness before your surgery. 18. If you are staying overnight, please DO NOT BRING your home medications with you. 19. If you have any questions prior to surgery, please call the Preadmission Testing office at [phone], Mon.-Fri. 7 a.m.-3 p.m. Leave a voicemail if needed. Pre-Surgery Instructions: Medication Instructions aspirin 81 mg Stop taking 1 week prior to procedure atorvastatin (LIPITOR) 40 mg tablet Check with prescribing doctor for instructions carvediloL (COREG) 25 mg tablet Check with prescribing doctor for instructions collagenase (SantyL) ointment Check with prescribing doctor for instructions collagenase (SANTYL) ointment Check with prescribing doctor for instructions dapagliflozin propanediol (FARXIGA) 10 mg tablet Check with prescribing doctor for instructions furosemide (LASIX) 20 mg tablet Check with prescribing doctor for instructions insulin aspart U-100 (NovoLOG Flexpen U-100 Insulin) 100 unit/mL (3 mL) insulin pen Check with prescribing doctor for instructions insulin aspart U-100 (NovoLOG) 100 unit/mL injection Check with prescribing doctor for instructions insulin detemir U-100 (LEVEMIR FLEXTOUCH U100 INSULIN) 100 unit/mL (3 mL) insulin pen Check with prescribing doctor for instructions metFORMIN (GLUCOPHAGE) 500 mg tablet Check with prescribing doctor for instructions pen needle, diabetic 31 gauge x 1/4 needle Check with prescribing doctor for instructions sacubitriL-valsartan (ENTRESTO) 24-26 mg tablet Check with prescribing doctor for instructions spironolactone (ALDACTONE) 25 mg tablet Check with prescribing doctor for instructions [facility] Miscellaneous Notes Left message for patient to return ACN call to assess for any questions, concerns, blood sugars. Contact Type: Direct contact - Phone call - discharge from Care Navigation Patient returned call to ACN and is doing well. Blood sugars are controlled, patient is feeling well, and his wound is healing. Patient has followed up with providers as scheduled and denies assistance is needed. ACN moving patient to graduation from Care Navigation program as he has not had any further needs, has followed up with providers as scheduled and no recent hospitalizations. Goal for a safe transition to home has been met. Patient will be monitored for future admissions and needs. documented in this encounter [facility] 06-15-2024 Telephone encounter Note Left message for patient to return ACN call to assess for any questions, concerns, blood sugars. [facility] Work Phone: 06-15-2024 Telephone encounter Note Contact Type: Direct contact - Phone call - discharge from Care Navigation Patient returned call to ACN and is doing well. Blood sugars are controlled, patient is feeling well, and his wound is healing. Patient has followed up with providers as scheduled and denies assistance is needed. ACN moving patient to graduation from Care Navigation program as he has not had any further needs, has followed up with providers as scheduled and no recent hospitalizations. Goal for a safe transition to home has been met. Patient will be monitored for future admissions and needs. [facility] Note Division of Infectio us Diseases - Outpatient Clinic Note Patient name: Jorge Rose Patient Today's Date and Time: 06/12/2024, 12:36 PM Primary Care Physician: Arlyn Guzman MD Reason for consultation / Chief complaint: Right foot infection History of Present Illness: This is a 43-year old male patient who was initially admitted on May 05, 2024. He had developed a wound on his great toe from his shoe. He presented to the emergency department and was found to have a diabetic foot infection with septic arthritis. He underwent a debridement, but no cultures were taken. He was discharged on a 4-week treatment course with Bactrim and levofloxacin. The patient had completed a hospital follow-up with our service on May 29, 2024. At that time, he was exhibiting persistent symptoms of infection. He was transitioned to oral Augmentin and doxycycline. These were to continue for 2 weeks of treatment. The patient is completing a subsequent follow-up with our service today to evaluate for any other change of symptoms.He reports today that he has been on his antibiotic therapy for 1 week, as he was waiting for his new health insurance to be processed. This occurred last Tuesday, so this is when he started the antibiotics. He reports he has tolerated the antibiotics without any side effects. He was previously scheduled to see his shovel operator on June 01, 2024, but he canceled this appointment due to the concern that he would not have adequate insurance coverage. He does report his insurance coverage has been processed, and he is currently scheduled to see podiatry on June 26, 2024. He feels that the change in treatment has helped to improve the appearance of his right great toe. He denied having any pain at the site. He denied having any fevers, chills, chest pain, shortness of breath, abdominal pain, nausea, vomiting, or diarrhea. He reports his blood sugars have been well-controlled and ranging between 150-160. He is hoping to return to work in the near future. Past Medical History: No past medical history on file. Past Surgical History: No past surgical history on file. Medications: Social History: Social History Socioeconomic History Marital status: Spouse name: Not on file Number of children: Not on file Years of education: Not on file Highest education level: Not on file Occupational History Not on file Tobacco Use Smoking status: Not on file Smokeless tobacco: Not on file Substance and Sexual Activity Alcohol use: Not on file Drug use: Not on file Sexual activity: Not on file Other Topics Concern Not on file Social History Narrative Not on file Social Determinants of Health Financial Resource Strain: Not on file Food Insecurity: Not on file Transportation Needs: Not on file Physical Activity: Not on file Stress: Not on file Social Connections: Not on file Intimate Partner Violence: Not on file Housing Stability: Not on file Family History: No family history on file. Immunization History: Immunization History Administered Date(s) Administered Tdap 10/12/2023 Allergies: No Known Allergies Review of Systems: General: No fevers or chills. Eyes: No double vision or blurry vision. ENT: No sore throat or runny nose. Cardiovascular: No chest pain or palpitations. Lung: No shortness of breath or cough. Abdomen: No nausea, vomiting, diarrhea, or abdominal pain. Genitourinary: No increased urinary frequency, or dysuria. Musculoskeletal: No muscle aches or pains. Hematologic: No bleeding or bruising. Neurologic: No headache, weakness, numbness, or tingling. Objective Physical Examination: Vitals: 06/12/24 1158 BP: 111/69 Pulse: 76 Resp: 16 SpO2: 98% Weight: 103 kg (228 lb) Height: 1.575 m (5' 2 ) General Appearance: awake, alert, oriented, in no acute distress Lungs: Normal expansion. Clear to auscultation. No rales, rhonchi, or wheezing. Heart: Heart sounds are normal. Regular rate and rhythm without murmur, gallop or rub. Abdomen: Soft, non-tender, normal bowel sounds; no bruits, organomegaly or masses. Skin: No rash. There is necrotic tissue in the wound bed of the right great toe. There is also slough below this. There is no surrounding erythema of the foot. There is no significant swelling or increase in warmth. Psych exam: alert,oriented, in NAD with a full range of affect, normal behavior and no psychotic features Impression and Recommendations: 1. Septic arthritis of right foot, due to unspecified organism ([facility]) This is a patient who was previously found to have a diabetic foot infection with septic arthritis of the right foot great toe. He was initially discharged on 4 weeks of oral Bactrim and levofloxacin, but after he had followed up on May 29, 2024, he had exhibited persistent symptoms of infection, so he was transitioned to oral Augmentin and (more content not included)... [facility] 05-29-2024 Note Division of Infectio us Diseases - Outpatient Clinic Note Patient name: Jorge Rose Patient Today's Date and Time: 05/29/2024, 12:15 PM Primary Care Physician: Arlyn Guzman MD Reason for consultation / Chief complaint: Right foot infection History of Present Illness: This is a 43-year old male patient who was initially admitted on May 05, 2024. He had developed a wound on his great toe from his shoe. He presented to the emergency department and was found to have a diabetic foot infection with septic arthritis. He underwent a debridement, but no cultures were taken. He was discharged on a 4-week treatment course with Bactrim and levofloxacin. He is completing a hospital follow up with our service today to evaluate for any change of symptoms.He reports today he has been taking both antibiotics as prescribed. He denied having any side effects from either antibiotic. He denied having any fevers, chills, chest pain, shortness of breath, abdominal pain, nausea, vomiting, or diarrhea. He reports the pain of his right foot great toe has been improving. He will be following up with podiatry on Tuesday. He reports his blood sugars have been ranging from 1 80-200. Past Medical History: No past medical history on file. Past Surgical History: No past surgical history on file. Medications: Social History: Social History Socioeconomic History Marital status: Spouse name: Not on file Number of children: Not on file Years of education: Not on file Highest education level: Not on file Occupational History Not on file Tobacco Use Smoking status: Not on file Smokeless tobacco: Not on file Substance and Sexual Activity Alcohol use: Not on file Drug use: Not on file Sexual activity: Not on file Other Topics Concern Not on file Social History Narrative Not on file Social Determinants of Health Financial Resource Strain: Not on file Food Insecurity: Not on file Transportation Needs: Not on file Physical Activity: Not on file Stress: Not on file Social Connections: Not on file Intimate Partner Violence: Not on file Housing Stability: Not on file Family History: No family history on file. Immunization History: Immunization History Administered Date(s) Administered Tdap 10/12/2023 Allergies: No Known Allergies Review of Systems: General: No fevers or chills. Eyes: No double vision or blurry vision. ENT: No sore throat or runny nose. Cardiovascular: No chest pain or palpitations. Lung: No shortness of breath or cough. Abdomen: No nausea, vomiting, diarrhea, or abdominal pain. Genitourinary: No increased urinary frequency, or dysuria. Musculoskeletal: Improving pain of the right foot great toe. Hematologic: No bleeding or bruising. Neurologic: No headache, weakness, numbness, or tingling. Objective Physical Examination: Vitals: 05/29/24 1207 BP: 111/73 Pulse: 81 Resp: 16 SpO2: 94% Weight: 104 kg (230 lb) Height: 1.575 m (5' 2 ) General Appearance: awake, alert, oriented, in no acute distress Lungs: Normal expansion. Clear to auscultation. No rales, rhonchi, or wheezing. Heart: Heart sounds are normal. Regular rate and rhythm without murmur, gallop or rub. Abdomen: Soft, non-tender, normal bowel sounds; no bruits, organomegaly or masses. Skin: No rash. There are wounds present on the entire right great toe. On the plantar aspect, there is necrotic tissue with a foul odor. There is mild purulent drainage from the site. There is no surrounding erythema or increase in warmth of the right foot. Psych exam: alert,oriented, in NAD with a full range of affect, normal behavior and no psychotic features Impression and Recommendations: 1. Septic arthritis of right foot, due to unspecified organism ([facility]) This is a patient who was hospitalized and found to be suffering from a diabetic foot infection with septic arthritis of the right foot great toe. He had undergone debridement, but no cultures were obtained. He was discharged on 4 weeks of oral Bactrim and levofloxacin that he was to complete on June 03, 2024. He reports today he has tolerated both antibiotics without any side effects. He reports the pain of his right foot great toe is improving. He will be following up with podiatry on Tuesday. On examination, there is necrotic tissue in the wound bed of the right foot great toe. There is also a foul odor. There is no surrounding signs of inflammation or infection of the right foot. It was discussed with the patient today that there is concern he is suffering from persistent infection of the right foot great toe. We will transition him to oral doxycycline and Augmentin for 2 weeks of treatment in order to offer coverage for staphylococcal, gram-negative, and anaerobic organisms that could be present. He was instructed to stop Bactrim and levofloxacin today. We will plan to follow-up w (more content not included)... [facility] 12-21-2023 Miscellaneous Notes Spoke to patient about last CR session attended being 11/30/2023 and this was only his 2nd class. Patient states he has been taking care of kids at home and has also been trying to find out if his insurance is covering the CR program. Advised that he would be taken off the schedule to allow class availability for other patients waiting to start. Patient verbalized understanding and states he will call back when he gets answer from his insurance. documented in this encounter [facility] 12-21-2023 Telephone encounter Note Spoke to patient about last CR session attended being 11/30/2023 and this was only his 2nd class. Patient states he has been taking care of kids at home and has also been trying to find out if his insurance is covering the CR program. Advised that he would be taken off the schedule to allow class availability for other patients waiting to start. Patient verbalized understanding and states he will call back when he gets answer from his insurance. [place] 12-13-2023 History of Present illness Narrative Images from the original note were not included. [address] [place] [address] [id number] Patient: Jorge Rose III Date of : 1980 Encounter Date: 12/13/2023 SUBJECTIVE: Chief Complaint: Chief Complaint Patient presents with Follow-up 3 month Patient ID: Jorge Rose III is a 43 y.o. male. PMH of HFrEF, HTN, polysubstance abuse, DM. Patient establish with CHF clinic last month. Since that time he is followed up with Cardiology on 12/05/2023, that time was approximately 8 lb up secondary to high salt intake. Currently wearing his LifeVest with plan for cardiac MRI on December 26. Cardiology increase Lasix to daily from p.r.n. Has noted improvement in his swelling, fatigue, and overall function. Blood sugars have been stable running anywhere from 70-180. PHYSICAL EXAMINATION: Vitals: 12/13/23 1637 BP: 132/70 Pulse: 81 Temp: 36.7 C (98.1 F) SpO2: 98% Weight: 96.4 kg (212 lb 9.6 oz) Height: 157.5 cm (5' 2 ) Physical Exam Vitals reviewed. Constitutional: General: He is not in acute distress. Appearance: Normal appearance. Eyes: Extraocular Movements: Extraocular movements intact. Pupils: Pupils are equal, round, and reactive to light. Cardiovascular: Rate and Rhythm: Normal rate and regular rhythm. Pulses: Normal pulses. Heart sounds: Normal heart sounds. Comments: Wearing life vest Pulmonary: Effort: Pulmonary effort is normal. No respiratory distress. Breath sounds: Normal breath sounds. No wheezing or rhonchi. Abdominal: General: Bowel sounds are normal. There is no distension. Palpations: Abdomen is soft. There is no mass. Tenderness: There is no abdominal tenderness. There is no right CVA tenderness, left CVA tenderness or guarding. Musculoskeletal: Cervical back: Normal range of motion and neck supple. Neurological: Mental Status: He is alert and oriented to person, place, and time. Mental status is at baseline. ASSESSMENT/PLAN: Sanchez was seen today for follow-up. Diagnoses and all orders for this visit: Chronic HFrEF (heart failure with reduced ejection fraction) [place] Other cardiomyopathy [place] Class 2 severe obesity due to excess calories with serious comorbidity and body mass index (BMI) of 35.0 to 35.9 in adult ([facility] Uncontrolled type 2 diabetes mellitus with hyperglycemia ([facility]) 43-year-old gentleman with history of heart failure with reduced ejection fraction, participating in congestive heart failure Clinic, recently followed up by Cardiology, currently has a life vest on with plan for cardiac MRI upcoming on December 26. Weight stable from previous cardiology visit, symptoms improved after making Lasix daily. Blood sugars have been stable, no changes lead today. ARLYN GUZMAN MD Family Medicine Physician [facility] / [facility] 12/13/23 This note was completed with voice recognition software. The document was reviewed for errors however some may still be present. Please do not hesitate to contact/[facility] the author to verify any questions/concerns. documented in this encounter [place] 12-13-2023 Miscellaneous Notes Addended by: ARLYN GUZMAN on: 12/13/2023 05:14 PM Modules accepted: Level of Service documented in this encounter [place] 12-13-2023 Note Addended by: Mehnaz GUZMAN on: 12/13/2023 05:14 PM Modules accepted: Level of Service [facility] 12-05-2023 History of Present illness Narrative Jorge Rose III Date of visit: 12/05/2023 Date of : 1980 Age: 43 y.o. Patient Active Problem List Diagnosis Uncontrolled type 2 diabetes mellitus with hyperglycemia [place] Cellulitis Infective myositis of left shoulder Sinus tachycardia Abnormal echocardiogram Hypertension Chronic HFrEF (heart failure with reduced ejection fraction) [place] Myocardiopathy [place] Class 2 obesity in adult Syncope, unspecified syncope type Polysubstance abuse ([facility]) No Known Allergies Current Outpatient Medications Medication Sig Dispense Refill aspirin 81 mg Take 1 tablet (81 mg total) by mouth in the morning. 30 tablet 11 atorvastatin (LIPITOR) 40 mg tablet Take 1 tablet (40 mg total) by mouth nightly. 30 tablet 11 carvediloL (COREG) 25 mg tablet Take 1 tablet (25 mg total) by mouth in the morning and 1 tablet (25 mg total) before bedtime. 60 tablet 11 dapagliflozin propanediol (FARXIGA) 10 mg tablet Take 1 tablet (10 mg total) by mouth in the morning. 30 tablet 11 furosemide (LASIX) 20 mg tablet Take 1 tablet (20 mg total) by mouth as needed (swelling or weight gain). 30 tablet 11 insulin aspart U-100 (NovoLOG Flexpen U-100 Insulin) 100 unit/mL (3 mL) insulin pen 15u in AM with meal, 15u in evening with meal 15 mL 12 insulin aspart U-100 (NovoLOG) 100 unit/mL injection Inject 0.15 mL (15 Units total) under the skin in the morning and 0.15 mL (15 Units total) in the evening. Inject with meals. insulin detemir U-100 (LEVEMIR FLEXTOUCH U100 INSULIN) 100 unit/mL (3 mL) insulin pen Inject 30 Units under the skin nightly. metFORMIN (GLUCOPHAGE) 500 mg tablet Take 1 tablet (500 mg total) by mouth in the morning and at bedtime. 60 tablet 0 pen needle, diabetic 31 gauge x 1/4 needle 90 each by miscellaneous route 3 (three) times a day. 90 each 6 sacubitriL-valsartan (ENTRESTO) 24-26 mg tablet Take 1 tablet by mouth in the morning and 1 tablet before bedtime. Start on Tuesday. 60 tablet 11 spironolactone (ALDACTONE) 25 mg tablet Take 1 tablet (25 mg total) by mouth in the morning. 30 tablet 11 No current facility-administered medications for this visit. Chief Complaint Patient presents with Hospital Follow-up [facility] Cardiomyopathy History of Present Illness 43-year-old male with history of nonischemic cardiomyopathy, hypertension, obesity and type 2 diabetes mellitus. He is here for follow-up visit. He is gained 8 lb. He reports that he was having alliance party at home. He has been munching on lot of chips and high salt diet. He reports no drinking. He is resumed Lasix from yesterday he was previously taking Lasix PRN. Denies chest pain, shortness of breath or lower extremity edema. He is wearing LifeVest is planned to get cardiac MRI at the end of this month and then further evaluation based on cardiac MR Past Medical History: Diagnosis Date Abnormal echocardiogram CHF (congestive heart failure) ([facility]) Diabetes mellitus type 2, controlled [place] Hypertension Sinus tachycardia Traumatic dislocation of right shoulder 2016 No data recorded No data recorded No data recorded Past Surgical History: Procedure Laterality Date Cardiac catheterization N/A 10/14/2023 Performed by Alexandre Guajardo MD at [facility] LV/Cors N/A 10/14/2023 Performed by Alexandre Guajardo MD at [facility] Family History Problem Relation Age of Onset Diabetes Mother Heart disease Father Social History Socioeconomic History Marital status: Spouse name: Not on file Number of children: Not on file Years of education: Not on file Highest education level: Not on file Occupational History Not on file Tobacco Use Smoking status: Former Types: Cigarettes Quit date: 01/22/2018 Years since quittin.8 Smokeless tobacco: Never Vaping Use Vaping Use: Never used Substance and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 15. Evaluate and identify Safe Patient Handling Equipment needs 16. Provide supervision when out of bed or chair 17. Utilize gait belt as needed to assist with ambulation 18. Place adaptive equipment (cane, walker) within reach 19. Request patient technical support representative bring adaptive equipment/mobility aids from home or obtain and provide as needed 20. Consult pharmacy regarding effects of med's affecting mobility, cognition, and alternatives 21. Obtain physician order for PT if risk factors associated with mobility are present 22. Obtain physician order for OT as appropriate 23. Utilize diversional activities 24. Educate patient and patient technical support representative how to maintain a safe environment during visitation times (notify nurse prior to leaving bedside) 25. Consider appropriateness of medical or non-medical writer 26. Set up voiding schedule as appropriate (every 2 hours) Outcome: Progressing Note: Evaluation of progress towards goal: Fall risk assessment per policy, fall risk interventions in place and maintained. Hourly rounding. Patient remains free of falls, and continue monitoring. Images from the original note were not included. DISCHARGE PLANNING NOTE Discharge Planning: Introduced self and explained role to the pt. Pt verbalized understanding. Pt admitted for syncope Pt readmission risk 10% Past Medical History: Diagnosis Date Abnormal echocardiogram [place]estive [place] Diabetes mellitus type 2, controlled [place] Hypertension Sinus tachycardia Traumatic dislocation of right shoulder 2016 Services Requested: Services Requested Discharge Disposition: Home with self care Patient Goals: Patient/Caregiver Goals Patient/Caregiver Goals: Home No Needs Goals: Goals Return home (pt-stated) Evaluation of progress towards goal: In progress: Return home Pt lives with and children. Pt states he is compliant with meds and has no difficulty with affordability. Pt denies dme usage or needs but states he has walker, cane at home if needed. Pt/ prepare meals or they do take out. Discussed cardiac diet. Pt checks bs 3-4x a day, admits he has not been the best with management. Pt denies smoking, etoh. He does admit to THC and cocaine. He states cocaine was 1-2 x a month to deal with stressors in life. He declined need for resources but we discussed different coping mechanisms. He did say SW from [facility] did give him some counseling resources. Pt works, has no home care or need on dc. Plan for life vest. will be transport on dc. Per cardiology note they may started farxiga or jardiance. Discussed with RN can get free/co pay cards - Edwina Gerardo RN 10/16/23 11:53 AM Problem: Pain Goal: Patient goal is pain score less than 4, able to rest, and participant in treatment plan as appropriate Description: INTERVENTIONS: 1. Encourage patient or legal technical support representative to report early pain and ask for pain medicine when needed 2. Assess pain using appropriate pain scale and include the scale used when documenting 3. Administer analgesics based on type and severity of pain and evaluate response within appropriate time frame 4. Implement non-pharmacological measures as appropriate and evaluate response 5. Consider cultural and social influences on pain and pain management 6. Notify LIP if interventions ineffective or patient reports new pain 7. Monitor vital signs including pulse ox, end-tidal CO2 based on pain intervention 8. Reassess pain per policy 9. Teach patient or legal technical support representative interventions for comforting Outcome: Progressing Note: Evaluation of progress towards goal: No pain during assessment Problem: Safety Goal: Patient will be injury free during hospitalization Description: INTERVENTIONS: 1. Assess patient's risk for falls and implement fall prevention plan of care per policy 2. Provide and maintain a safe environment 3. Proper use of double Identifiers 4. Medication administration using the 5 rights 5. Hand hygiene 6. Specimens are labeled at the bedside 7. Instruct patient/ patient technical support representative about use of safety devices 8. Include patient/ patient technical support representative in decisions related to safety Outcome: Progressing Note: Evaluation of progress towards goal: Pt oriented to room and environment. Bed wheels locked and in low position with side rails up 2/4 for safety. Personal belongings and call light within reach. [place] socks applied to feet. Pt instructed to call for assistance with ambulation. Problem: Infection Goal: Absence of infection during hospitalization Description: Interventions: 1. Assess and monitor for signs and symptoms of infection 2. Monitor lab/diagnostic results 3. Monitor all insertion sites i.e., indwelling lines, tubes and drains 4. Monitor endotracheal (as able) and nasal secretions for changes in amount and color 5. Administer medications as ordered 6. Instruct and encourage patient and family to use good hand hygiene technique 7. Identify and instruct patient/patient technical support representative in use of appropriate isolation precautions for identified infection/symptoms 8. Provide and discuss with patient/patient technical support representative on educational MDRO sheet 9. Encourage and monitor nutritional status daily and consult clinic physician if indicated 10. Implement neutropenic guidelines as needed 11. Review exposure to history of communicable disease and recent travel history on admission 12. Encourage annual influenza vaccine 13. Encourage pneumonia vaccine Outcome: Progressing Note: Evaluation of progress towards goal: Afebrile; will continue to assess and monitor for s/s infection. Images from the original note were not included. [facility] [address] [place] [address] PROGRESS NOTE 10/15/2023 12:17 PM Subjective: Mr. Rose has no chest pain. Cardiac catheterization results Conclusion: 1. Nonobstructive coronary artery disease. 2. Moderate to severely depressed left ventricular systolic function. Recommendation: 1. Medical therapy as needed. Risk factor modification 2. Electrophysiology evaluation EF showed 20-25% Current Meds: Current Facility-Administered Medications: aspirin chewable tablet 81 mg, 81 mg, oral, Daily, Alexandre Guajardo MD, 81 mg at 10/15/23 0851 atorvastatin (LIPITOR) tablet 40 mg, 40 mg, oral, Nightly, Alexandre Guajardo MD, 40 mg at 10/14/232011 carvediloL (COREG) tablet 25 mg, 25 mg, oral, BID, Alexandre Guajardo MD, 25 mg at 10/15/23 09 furosemide (LASIX) tablet 20 mg, 20 mg, oral, Daily, Alexandre Guajardo MD, 20 mg at 10/15/23 0851 lisinopriL (PRINIVIL,ZESTRIL) tablet 20 mg, 20 mg, oral, Daily, Alexandre Guajardo MD, 20 mg at 10/15/23 0851 [START ON 2023] metFORMIN (GLUCOPHAGE) tablet 500 mg, 500 mg, oral, BID with meals, Patricia Schuster MD potassium chloride (K-TAB,KLOR-CON) CR tablet 10 mEq, 10 mEq, oral, BID, Alexandre Guajardo MD, 10 mEq at 10/15/23 0851 spironolactone (ALDACTONE) tablet 25 mg, 25 mg, oral, Daily, Alexandre Guajardo MD, 25 mg at 10/15/23 0852 Continuous Infusions: VITAL SIGNS BP (!) 130/104 Pulse 83 Temp 36.9 C (98.4 F) (Oral) Resp 20 Ht 157.5 cm (5' 2 ) Wt 86.2 kg (190 lb) SpO2 96% BMI 34.75 kg/m 0 L/min Admit Weight: 86.2 kg (190 lb) Last 3 weights: Wt Readings from Last 3 Encounters: 10/14/23 86.2 kg (190 lb) 10/14/23 89 kg (196 lb 1.6 oz) 09/29/23 101.2 kg (223 lb 3.2 oz) BMI: Body mass index is 34.75 kg/m . INPUT/OUTPUT: Intake/Output Summary (Last 24 hours) at 10/15/2023 1217 Last data filed at 10/15/2023 0858 Gross per 24 hour Intake -- Output 2300 ml Net -2300 ml Current Meds: Current Facility-Administered Medications: aspirin chewable tablet 81 mg, 81 mg, oral, Daily, Alexandre Guajardo MD, 81 mg at 10/15/23 0851 atorvastatin (LIPITOR) tablet 40 mg, 40 mg, oral, Nightly, Alexandre Guajardo MD, 40 mg at 10/14/232011 carvediloL (COREG) tablet 25 mg, 25 mg, oral, BID, Alexandre Guajardo MD, 25 mg at 10/15/23 0900 furosemide (LASIX) tablet 20 mg, 20 mg, oral, Daily, Aelxandre Guajardo MD, 20 mg at 10/15/23 0851 lisinopriL (PRINIVIL,ZESTRIL) tablet 20 mg, 20 mg, oral, Daily, Alexandre Guajardo MD, 20 mg at 10/15/23 0851 [START ON 2023] metFORMIN (GLUCOPHAGE) tablet 500 mg, 500 mg, oral, BID with meals, Patricia Schuster MD potassium chloride (K-TAB,KLOR-CON) CR tablet 10 mEq, 10 mEq, oral, BID, Alexandre Guajardo MD, 10 mEq at 10/15/23 0851 spironolactone (ALDACTONE) tablet 25 mg, 25 mg, oral, Daily, Alexandre Guajardo MD, 25 mg at 10/15/23 0852 Continuous Infusions: EXAM: General appearance: In no acute distress. Lungs: Clear to Auscultation bilaterally Heart: regular rate and rhythm S1 S2 Abdomen: Soft nontender Extremities: No edema Psych: Appropriate mood and affect. Awake, alert and oriented x 3. Other: CV HISTORY: ECHO: Echo complete W/O contrast Result Date: 10/13/2023 Left Ventricle: Systolic function is severely decreased with an ejection fraction of 20-25%. The quantitative EF by 2D Ayers biplane is 22%. Aortic Valve: There is trace regurgitation. There is no evidence of aortic valve stenosis. Mitral Valve: There is mild to moderate regurgitation. There is no evidence of mitral valve stenosis. Tricuspid Valve: There is mild regurgitation. STRESS: No results found. HOLTER: No results found. CARDIAC CATH: Cardiac catheterization Result Date: 10/14/2023 Conclusion: 1. Nonobstructive coronary artery disease. 2. Moderate to severely depressed left ventricular systolic function. Recommendation: 1. Medical therapy as needed. Risk factor modification 2. Electrophysiology evaluation CAROTID: No results found. EKG: CXR: @CXR24@ LABS CBC: Lab Results Component Value Date WBC 9.7 10/15/2023 HGB 16.0 10/15/2023 HCT 49.3 (H) 10/15/2023 MCV 89 10/15/2023 RDW 16.7 (H) 10/15/2023 PLT 314 10/15/2023 BMP: Lab Results Component Value Date K 4.6 10/15/2023 CL 103 10/15/2023 CO2 26 10/15/2023 BUN 21 10/15/2023 CREATININE 1.02 10/15/2023 EGFR >90 10/15/2023 GLU 160 (H) 10/15/2023 GLU 164 (H) 10/14/2023 MG/PHOS: Lab Results Component Value Date MG 1.8 10/14/2023 PT/INR: Lab Results Component Value Date INR 1.1 01/22/2019 PTT: No results found for: APTT BNP: Lab Results Component Value Date BNP 811 (H) 10/04/2023 Last 3 Troponin: No components found for: TROPONIN I;3 Lipid Panel: @BRIEFLAB(CHOL,TRIG,HDL,LDLCALC U,CHOLHDL Pulse Ox: )SpO2 Av.4 % Min: 94 % Max: 99 % Supplemental O2: O2 Flow Rate (L/min): 0 L/min Principal Problem: Syncope, unspecified syncope type ASSESSMENT / PLAN MPRESSIONS/PLAN @DX@ Syncope/ nonischemic cardiomyopathy / LV dysfunction-I would recommend that the patient stay, and obtain a LifeVest as the patient did have syncope and with severe LV dysfunction could have been a ventricular arrhythmia. Hard to tell if patient fell asleep or had true syncope, with the LV dysfunction no would want to have the LifeVest placed before he left Chronic systolic heart failure/nonischemic cardiomyopathy-patient is already on spironolactone carvedilol and lisinopril, could consider adding Farxiga or Jardiance not sure if he would be able to afford this Problem: Pain Goal: Patient goal is pain score less than 4, able to rest, and participant in treatment plan as appropriate Description: INTERVENTIONS: 1. Encourage patient or legal technical support representative to report early pain and ask for pain medicine when needed 2. Assess pain using appropriate pain scale and include the scale used when documenting 3. Administer analgesics based on type and severity of pain and evaluate response within appropriate time frame 4. Implement non-pharmacological measures as appropriate and evaluate response 5. Consider cultural and social influences on pain and pain management 6. Notify LIP if interventions ineffective or patient reports new pain 7. Monitor vital signs including pulse ox, end-tidal CO2 based on pain intervention 8. Reassess pain per policy 9. Teach patient or legal technical support representative interventions for comforting Outcome: Progressing Note: Evaluation of progress towards goal: Pt denies pain at this time, continuing to monitor Problem: Safety Goal: Patient will be injury free during hospitalization Description: INTERVENTIONS: 1. Assess patient's risk for falls and implement fall prevention plan of care per policy 2. Provide and maintain a safe environment 3. Proper use of double Identifiers 4. Medication administration using the 5 rights 5. Hand hygiene 6. Specimens are labeled at the bedside 7. Instruct patient/ patient technical support representative about use of safety devices 8. Include patient/ patient technical support representative in decisions related to safety Outcome: Progressing Note: Evaluation of progress towards goal: Pt safety maintained, pt remain free from falls, pt rounded on, continuing to monitor Problem: Infection Goal: Absence of infection during hospitalization Description: Interventions: 1. Assess and monitor for signs and symptoms of infection 2. Monitor lab/diagnostic results 3. Monitor all insertion sites i.e., indwelling lines, tubes and drains 4. Monitor endotracheal (as able) and nasal secretions for changes in amount and color 5. Administer medications as ordered 6. Instruct and encourage patient and family to use good hand hygiene technique 7. Identify and instruct patient/patient technical support representative in use of appropriate isolation precautions for identified infection/symptoms 8. Provide and discuss with patient/patient technical support representative on educational MDRO sheet 9. Encourage and monitor nutritional status daily and consult clinic physician if indicated 10. Implement neutropenic guidelines as needed 11. Review exposure to history of communicable disease and recent travel history on admission 12. Encourage annual influenza vaccine 13. Encourage pneumonia vaccine Outcome: Progressing Note: Evaluation of progress towards goal: Pt afebrile, continuing to monitor labs and vital signs Problem: Knowledge Deficit Goal: Patient/patient technical support representative demonstrates understanding of disease process, treatment plan, medications, and discharge instructions Description: INTERVENTIONS 1. Complete learning assessment and assess knowledge base 2. Provide teaching at level of understanding 3. Provide teaching via preferred learning method(s) Outcome: Progressing Note: Evaluation of progress towards goal: Pt verbalizes understanding of POC, continuing to update as needed Problem: Discharge Planning Goal: Discharge to post-acute care, other facility, or home with appropriate resources Description: Patient's goal is: INTERVENTIONS 1. Conduct assessment to determine patient/family and health care team treatment goals, and need for post-acute services based on payer coverage, community resources, and patient preferences, and barriers to discharge 2. Coordinate with Social work, Care Navigation, and Utilization Review to arrange appropriate level of services according to patient's needs based on patient preference and payer coverage in collaboration with the physician and health care team 3. Address psychosocial, clinical, and financial barriers to discharge as identified in assessment in conjunction with the patient/family and health care team 4. Consult appropriate ancillary services (i.e.. PT/OT/ST, etc) as needed 5. Communicate with and update the patient/family, physician, and health care team regarding progress on the discharge plan 6. Identify discharge learning needs (meds, wound care, etc). 7. Arrange for needed discharge transportation as appropriate Outcome: Progressing Note: Evaluation of progress towards goal: Pt to d/c home within the next 48 hours, continuing to follow up Problem: Glucose Imbalance Goal: Clinical indication of glucose balance is achieved Description: Patient's goal is: INTERVENTIONS 1. Monitor blood glucose levels as ordered 2. Administer medications as ordered 3. Notify physician of ineffective treatment plan Outcome: Progressing Note: Evaluation of progress towards goal: continuing to monitor Goal: Patient's discharge needs are met Description: Patient's goal is: INTERVENTIONS 1. Assess patient for self-management skills 2. Encourage participation in diabetes management 3. Identify potential discharge barriers on admission and throughout hospital stay 4. Involve patient/S.O. in discharge planning process 5. Communicate referral to wellness educator as appropriate 6. Communicate referral to clinic physician as appropriate 7. Collaborate with case management/delinquency prevention social worker for discharge needs Outcome: Progressing Note: Evaluation of progress towards goal: Pt not ready for discharge, continuing to monitor Problem: Moderate - High Risk Fall Score Description: [place]ian Fall Score of =/> 25 or indicated by [facility] Re[facility] Assessment Goal: Patient should be free from fall Description: Interventions: 1. [place] to environment 2. Hourly rounds addressing the 4 P's (Pain, Positioning, Possessions, Potty) 3. Clear area of hazards (spills, clutter, electrical cords, unnecessary equipment) 4. Place equipment (bed & TV controls, call light, phone, urinal) within reach 5. Encourage patient to wear glasses and hearing aides as appropriate 6. Maintain bed in lowest position 7. Lock wheels on bed/wheelchair 8. Provide adequate lighting, including night light 9. Assess need for additional bedding, food/fluids, pain med's prior to sleep/routinely 10. Provide gripper slippers or personal non-skid footwear 11. Teach patient and patient technical support representative to maintain environment for safety and engage in all aspects of fall prevention program 12. Remind patient to call for help before getting out of bed 13. Initiate bed/chair/exit alarms supportive devices as appropriate, (chair wedge, no-skid floor mat, raised edge mattress, hip protectors) 14. Locate patient bed assignment for optimal visualization 15. Evaluate and identify Safe Patient Handling Equipment needs 16. Provide supervision when out of bed or chair 17. Utilize gait belt as needed to assist with ambulation 18. Place adaptive equipment (cane, walker) within reach 19. Request patient technical support representative bring adaptive equipment/mobility aids from home or obtain and provide as needed 20. Consult pharmacy regarding effects of med's affecting mobility, cognition, and alternatives 21. Obtain physician order for PT if risk factors associated with mobility are present 22. Obtain physician order for OT as appropriate 23. Utilize diversional activities 24. Educate patient and patient technical support representative how to maintain a safe environment during visitation times (notify nurse prior to leaving bedside) 25. Consider appropriateness of medical or non-medical writer 26. Set up voiding schedule as appropriate (every 2 hours) Outcome: Progressing Note: Evaluation of progress towards goal: Pt remain free from falls, continuing to monitor labs and vital signs Additional Comments: Images from the original note were not included. Panel Physicians Referring Physician Alexandre Guajardo MD (Primary) Procedures LV/Cors Cardiac catheterization Indications Conclusion Conclusion: 1. Nonobstructive coronary artery disease. 2. Moderate to severely depressed left ventricular systolic function. Recommendation: 1. Medical therapy as needed. Risk factor modification 2. Electrophysiology evaluation Pre Procedure Diagnosis Cardiomyopathy Post Procedure Diagnosis LV Gram Left Ventricle The left ventricle is dilated. There is moderate to severe left ventricular systolic dysfunction. LV systolic pressure is normal. LV end diastolic pressure is normal. There are no wall motion abnormalities in the left ventricle. There is no evidence of mitral regurgitation. The outflow tract is normal. There was no gradient across aortic valve on left heart pullback. Estimated ejection fraction is 30%. Left Atrium Mitral Valve Aortic Valve Measurements Cath EF Calculated: Wall Motion The following segments are hypokinetic: mid anterior, mid inferior, basilar anterior, basilar inferior, apical anterior and apical inferior. Coronary Vessel Findings Diagnostic Dominance: Right Left Main The vessel was visualized by angiography, is moderate in size and is angiographically normal. Left Anterior Descending Left anterior descending artery has minimal irregularities without significant obstruction except for very far distally around the apex which appears to be atretic Ramus Intermedius Ramus intermedius is small and normal Left Circumflex Left circumflex coronary artery is a nondominant system which has minimal irregularities without significant obstruction Right Coronary Artery Right coronary artery is a dominant vessel which has minimal irregularities without significant obstruction. EBL minimal. No apparent complications Pre Procedure Evaluation: H&P was reviewed and the patient was examined. No change has occurred in the patient's condition since the H&P was completed. ASA: 4 Mallampati: II Sedation plan and risks discussed with: patient Indication(s) for Nocturnist Visit: Cardiomyopathy Chest Pain Symptom Assessment: nonanginal Cardiovascular Instability: No Heart Failure: Yes Congestive Heart Failure (NYHA Classification within 2 weeks): II Heart Failure Newly Diagnosed: Yes Heart Failure Type: Systolic Electrocardiac Assessment Method: ECG Results: abnormal Electrocardiac Abnormality Type: Other Electrocardiac Abnormality Stress Test Performed: No Cardiac CTA: No [facility] Clinical Frailty Scale (Assessment immediately prior to procedure): 6: Moderately Frail Cardiac Arrest Out of Hospital: No Cardiac Arrest at Transferring Facility: No documented in this encounter [facility] 2023 History of Present illness Narrative Images from the original note were not included. [facility] [address] [place] [address] PROGRESS NOTE Jorge Rose III is sitting upright in his chair. SUBJECTIVE Allergies: No Known Allergies CURRENT MEDICATIONS aspirin, 81 mg, oral, Daily atorvastatin, 40 mg, oral, Nightly carvediloL, 25 mg, oral, BID furosemide, 20 mg, oral, Daily insulin glargine, 30 Units, subcutaneous, Daily with breakfast insulin lispro, 2-10 Units, subcutaneous, TID with meals insulin lispro, 2-8 Units, subcutaneous, Nightly lidocaine, 1 patch, transdermal, Daily lisinopriL, 20 mg, oral, Daily potassium chloride, 10 mEq, oral, BID spironolactone, 25 mg, oral, Daily CONTINUOUS INFUSIONS Review of Systems: Cardiovascular: No chest pain, dyspnea on exertion, palpitations or loss of consciousness. No cough, hemoptysis, pleuritic pain, or phlebitis. Respiratory: No cough or wheezing, no sputum production, no hematemesis. Neurological: No headache, diplopia, change in muscle strength, numbness or tingling. No change in gait, balance, coordination, mood, affect, memory, mentation, behavior. Hematologic/Lymphatic: No abnormal bruising or bleeding, blood clots or swollen lymph nodes. OBJECTIVE CBC: Results from last 7 days Lab Units 10/17/23 0408 10/15/23 0256 10/14/23 0531 WBC X10E9/L 7.9 9.7 10.4 HEMOGLOBIN g/dL 15.6 16.0 16.1 HEMATOCRIT % 47.1 49.3* 48.9 MCV fL 88 89 88 PLATELETS X10E9/L 308 314 342 BMP: Results from last 7 days Lab Units 10/17/23 0408 10/15/23 0256 10/14/23 0531 10/13/23 0530 SODIUM mmol/L 133* 135 135 135 POTASSIUM mmol/L 4.7 4.6 4.1 4.4 CHLORIDE mmol/L 103 103 105 105 CO2 mmol/L 22 26 21* 22 BUN mg/dL 23 21 15 16 CREATININE mg/dL 0.93 1.02 0.87 0.91 CALCIUM mg/dL 9.0 9.3 8.9 9.0 MAGNESIUM mg/dL 2.0 -- 1.8 1.9 PT/INR: APTT: MAG: Results from last 7 days Lab Units 10/17/23 0408 10/14/23 0531 10/13/23 0530 MAGNESIUM mg/dL 2.0 1.8 1.9 D Dimer: Troponin I Results from last 7 days Lab Units 10/13/23 0530 10/12/23 2119 10/12/23 1607 TROPONIN I ng/mL 0.03 0.03 0.02 ProBNP Results from last 7 days Lab Units 10/17/23 0408 BNP pg/mL 217* Lipid Panel: Lab Results Component Value Date CHOL 118 (L) 10/04/2023 TRIG 105 10/04/2023 HDL 46 10/04/2023 Liver Panel: No results found for: ALB HgA1C: Lab Results Component Value Date HGBA1C 9.3 (H) 10/04/2023 ABG: CV TESTING HISTORY: ECHO: Echo complete W/O contrast Result Date: 10/13/2023 Left Ventricle: Systolic function is severely decreased with an ejection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 (LASIX) tablet 20 mg 20 mg oral Daily Sara D Valeriootzer, HAND INSERTER OPERATOR-LABORATORY MANAGER 20 mg at 10/13/23 0900 glucagon HCL injection 1 mg 1 mg intramuscular PRN Sara D Krotzer, HAND INSERTER OPERATOR-LABORATORY MANAGER insulin glargine (LANTUS, SEMGLEE) injection pen 30 Units 30 Units subcutaneous Daily Sara Avaloszer, HAND INSERTER OPERATOR-LABORATORY MANAGER 30 Units at 10/14/23 0818 insulin lispro (HumaLOG) injection 2-10 Units 2-10 Units subcutaneous TID with meals Sara Luootzer, HAND INSERTER OPERATOR-LABORATORY MANAGER 2 Units at 10/14/23 0817 insulin lispro (HumaLOG) injection 2-8 Units 2-8 Units subcutaneous Nightly Sara Avaloszer, HAND INSERTER OPERATOR-LABORATORY MANAGER lisinopriL (PRINIVIL,ZESTRIL) tablet 20 mg 20 mg oral Daily Sara Avaloszer, HAND INSERTER OPERATOR-LABORATORY MANAGER 20 mg at 10/13/23 0900 magnesium sulfate IVPB 2000 mg/50 mL in iso-osmotic water (40 mg/mL premix) 2,000 mg intravenous PRN Sara D Krotzer, HAND INSERTER OPERATOR-LABORATORY MANAGER magnesium sulfate IVPB 4000 mg/100 mL in iso-osmotic water (40 mg/mL premix) 4,000 mg intravenous PRN Sara D Krotzer, HAND INSERTER OPERATOR-LABORATORY MANAGER ondansetron (PF) (ZOFRAN) injection 4 mg 4 mg intravenous Q6H PRN Sara D Krotzer, HAND INSERTER OPERATOR-LABORATORY MANAGER potassium chloride (KLOR-CON M 20) CR tablet 30-50 mEq 30-50 mEq oral PRN Sara D Krotzer, HAND INSERTER OPERATOR-LABORATORY MANAGER Or potassium chloride (KAYCIEL) 20 mEq/15 mL solution 30-50 mEq 30-50 mEq oral PRN Asra D Krotzer, HAND INSERTER OPERATOR-LABORATORY MANAGER sodium phosphate 20 mmol in sodium chloride 0.9 % 250 mL IVPB 20 mmol intravenous PRN Sara D Krotzer, HAND INSERTER OPERATOR-LABORATORY MANAGER Or sodium phosphate 20 mmol in sodium chloride 0.9 % 100 mL IVPB 20 mmol intravenous PRN Sara D Krotzer, HAND INSERTER OPERATOR-LABORATORY MANAGER Or sod phos di, mono-K phos mono (K-PHOS NEUTRAL) 250 mg tablet 2 tablet 2 tablet oral PRN Sara D Krotzer, HAND INSERTER OPERATOR-LABORATORY MANAGER sodium chloride 0.9 % flush 3 mL 3 mL intravenous PRN Sandy Calloway, HAND INSERTER OPERATOR-LABORATORY MANAGER sodium chloride 0.9 % flush bag 25 mL intravenous PRN Sara D Krotzer, HAND INSERTER OPERATOR-LABORATORY MANAGER sodium chloride 0.9 % infusion 20 mL/hr intravenous Continuous PRN Sara D Krotzer, HAND INSERTER OPERATOR-LABORATORY MANAGER sodium chloride 0.9 % infusion 50 mL/hr intravenous Continuous Sara D Krotzer, HAND INSERTER OPERATOR-LABORATORY MANAGER 50 mL/hr at 10/14/23 0638 Rate Verify at 10/14/23 0638 Home Meds: Prior to Admission medications Medication Sig Start Date End Date Taking? Authorizing Provider carvediloL (COREG) 25 mg tablet Take 1 tablet (25 mg total) by mouth in the morning and 1 tablet (25 mg total) before bedtime. 09/20/23 Yes Not In System Ref Prov metFORMIN (GLUCOPHAGE) 500 mg tablet Take 1 tablet (500 mg total) by mouth in the morning and at bedtime. 09/20/23 Yes Not In System Ref Prov furosemide (LASIX) 20 mg tablet Take 1 tablet (20 mg total) by mouth daily. 09/29/23 Arlyn Guzman MD insulin detemir U-100 (LEVEMIR FLEXTOUCH U100 INSULIN) 100 unit/mL (3 mL) insulin pen Inject 30 Units under the skin daily with breakfast. 09/29/23 Arlyn Guzman MD lisinopriL (PRINIVIL,ZESTRIL) 20 mg tablet TAKE 1 TABLET BY MOUTH IN THE MORNING 09/29/23 Arlyn Guzman MD pen needle, diabetic 31 gauge x 1/4 needle 90 each by miscellaneous route 3 (three) times a day. 09/29/23 Arlyn Guzman MD potassium chloride (KLOR-CON M 20) 20 MEQ CR tablet Take 1 tablet (20 mEq total) by mouth in the morning. 09/29/23 Arlyn Guzman MD Social History: TOBACCO: reports that he quit smoking about 5 years ago. His smoking use included cigarettes. He has never used smokeless tobacco. ETOH: reports no history of alcohol use. DRUGS: reports current drug use. Drugs: Crack cocaine and Marijuana. OCCUPATION: Family History: Family History Problem Relation Age of Onset Diabetes Mother Heart disease Father Review of Systems: Constitutional: there has been no unanticipated weight loss, no change in energy level, sleep pattern, or activity level. Eyes: No visual changes or diplopia, no scleral icterus. ENT: No Headaches, hearing loss or vertigo, no mouth sores or sore throat. Cardiovascular: No chest pain, dyspnea on exertion, palpitations or loss of consciousness, no cough, hemoptysis, pleuritic pain, or phlebitis. Respiratory: No cough or wheezing, no sputum production, no hematemesis. Gastrointestinal: No abdominal pain, appetite loss, blood in stools, no change in bowel or bladder habits. Genitourinary: No dysuria, trouble voiding, or hematuria Musculoskeletal: No gait disturbance, weakness or joint complaints Integumentary: No rash or pruritis Neurological: No headache, diplopia, change in muscle strength, numbness or tingling, no change in gait, balance, coordination, mood, affect, memory, mentation, behavior Psychiatric: No anxiety, or depression Endocrine: No temperature intolerance, no excessive thirst, fluid intake, or urination, no tremor Hematologic/Lymphatic: No abnormal bruising or bleeding, blood clots or swollen lymph nodes Allergic/Immunologic: No nasal congestion or hives OBJECTIVE LAST LABS: CBC: Results from last 7 days Lab Units 10/14/23 0510/13/23 0510/12/23 1607 WBC X10E9/L 10.4 12.6* 10.5 HEMOGLOBIN g/dL 16.1 15.8 15.2 HEMATOCRIT % 48.9 49.0 46.5 MCV fL 88 88 88 PLATELETS X10E9/L 342 349 332 BMP: Results from last 7 days Lab Units 10/14/23 0531 10/13/23 0510/12/23 1607 SODIUM mmol/L 135 135 131* POTASSIUM mmol/L 4.1 4.4 4.7 CHLORIDE mmol/L 105 105 102 CO2 mmol/L 21* 22 23 BUN mg/dL 15 16 23 CREATININE mg/dL 0.87 0.91 1.07 CALCIUM mg/dL 8.9 9.0 8.7 MAGNESIUM mg/dL 1.8 1.9 2.2 PT/INR: APTT: MAG: Results from last 7 days Lab Units 10/14/23 0531 10/13/23 0510/12/23 1607 MAGNESIUM mg/dL 1.8 1.9 2.2 D Dimer: Troponin I Results from last 7 days Lab Units 10/13/23 0530 10/12/23 2119 10/12/23 1607 TROPONIN I ng/mL 0.03 0.03 0.02 ProBNP Lipid Panel: Lab Results Component Value Date CHOL 118 (L) 10/04/2023 TRIG 105 10/04/2023 HDL 46 10/04/2023 Liver Panel: No results found for: ALB HgA1C: Lab Results Component Value Date HGBA1C 9.3 (H) 10/04/2023 ABG: Telemetry: Sinus rhythm EKG: No results found. LAST ECHO (Within 2 Years) Echo complete W/O contrast Result Date: 10/13/2023 Left Ventricle: Systolic function is severely decreased with an ejection fraction of 20-25%. The quantitative EF by 2D Ayers biplane is 22%. Aortic Valve: There is trace regurgitation. There is no evidence of aortic valve stenosis. Mitral Valve: There is mild to moderate regurgitation. There is no evidence of mitral valve stenosis. Tricuspid Valve: There is mild regurgitation. LAST STRESS (Within 2 Years) No results found. CATH: (Within 2 Years) None RADIOLOGY: Echo complete W/O contrast Result Date: 10/13/2023 Left Ventricle: Systolic function is severely decreased with an ejection fraction of 20-25%. The quantitative EF by 2D Ayers biplane is 22%. Aortic Valve: There is trace regurgitation. There is no evidence of aortic valve stenosis. Mitral Valve: There is mild to moderate regurgitation. There is no evidence of mitral valve stenosis. Tricuspid Valve: There is mild regurgitation. PHYSICAL EXAM Admission Weight: Weight: 101.2 kg (223 lb) I/O last 3 completed shifts: In: 4515.7 [P.O.:2260; I.V.:1630.4; IV Piggyback:625.3] Out: 4700 [Urine:4700] Weight change: -12.2 kg (-26 lb 14.4 oz) Wt Readings from Last 3 Encounters: 10/14/23 89 kg (196 lb 1.6 oz) 09/29/23 101.2 kg (223 lb 3.2 oz) 07/13/23 93 kg (205 lb) Vitals: Vitals: 10/14/23 0648 10/14/23 0731 10/14/23 0733 10/14/23 0734 BP: (!) 137/100 (!) 137/108 (!) 126/106 130/78 Pulse: 110 95 93 60 Resp: Temp: 36.8 C (98.2 F) 36.7 C (98.1 F) TempSrc: Temporal Oral SpO2: 98% 98% Weight: Height: Admit Weight Weight: 101.2 kg (223 lb) Last 3 Weights Last 3 Weight Readings 10/12/23 1457 10/13/23 0120 10/14/23 06 Weight: 101.2 kg (223 lb) 86.2 kg (190 lb) 89 kg (196 lb 1.6 oz) Body mass index is 35.87 kg/m . INTAKE/OUTPUT I/O last 3 completed shifts: In: 4515.7 [P.O.:2260; I.V.:1630.4; IV Piggyback:625.3] Out: 4700 [Urine:4700] Intake/Output Summary (Last 24 hours) at 10/14/2023 0855 Last data filed at 10/14/2023 0638 Gross per 24 hour Intake 2997.35 ml Output 3300 ml Net -302.65 ml General appearance: Alert oriented and cooperative, in no acute distress Skin: Warm and dry to touch Head: Normocephalic, without obvious abnormality, atraumatic Eyes: Conjunctivae unremarkable, EOMs intact, sclera non icteric Neck: No JVD, no carotid bruit, neck supple, trachea midline Lungs: Clear to ausculation bilaterally, no use of accessory muscles. Heart:: RRR with normal S1 and S2 , no murmurs and no gallops. Abdomen: Soft, non-tender, bowel sounds normal Extremities: No edema Neurologic: Oriented to time, person and place, affect appropriate, no focal/major motor or sensory defects noted Psychiatric: Appropriate mood, memory and judgment ASSESSMENT Principal Problem: Syncope, unspecified syncope type Active Problems: Uncontrolled type 2 diabetes mellitus with hyperglycemia ([facility]) Hypertension Chronic HFrEF (heart failure with reduced ejection fraction) [place]) Polysubstance abuse [place] PLAN 1. Incapacitation unknown if this was truly a syncopal episode versus falling asleep at the wheel. But given his worsening cardiomyopathy will definitely need further evaluation. Will plan for cardiac catheterization. Discussed case with my colleagues Dr. Cunningham and Dr. Guajardo will also consider electrophysiology evaluation. Will need outpatient sleep study and further titration of GDM T consider washout of lisinopril and initiation of Entresto. Of note he has been tolerating cocaine usage and carvedilol would continue with this. Polysubstance abuse cessation recommended as this will improve his overall mortality and morbidity. Caleb Anderson MD This note was completed using a voice systems integration manager system. Every effort was made to ensure accuracy. However, inadvertent computerized systems integration manager errors may be present. documented in this encounter [facility] 10-16-2023 Progress note Formatting of t his note is different from the original. Images from the original note were not included. DISCHARGE PLANNING NOTE Discharge Planning: Introduced self and explained role to the pt. Pt verbalized understanding. Pt admitted for syncope Pt readmission risk 10% Past Medical History: Diagnosis Date Abnormal echocardiogram CHF (congestive heart failure) ([facility]) Diabetes mellitus type 2, controlled [place] Hypertension Sinus tachycardia Traumatic dislocation of right shoulder 2016 Services Requested: Services Requested Discharge Disposition: Home with self care Patient Goals: Patient/Caregiver Goals Patient/Caregiver Goals: Home No Needs Goals: Goals Return home (pt-stated) Evaluation of progress towards goal: In progress: Return home Pt lives with and children. Pt states he is compliant with meds and has no difficulty with affordability. Pt denies dme usage or needs but states he has walker, cane at home if needed. Pt/ prepare meals or they do take out. Discussed cardiac diet. Pt checks bs 3-4x a day, admits he has not been the best with management. Pt denies smoking, etoh. He does admit to THC and cocaine. He states cocaine was 1-2 x a month to deal with stressors in life. He declined need for resources but we discussed different coping mechanisms. He did say SW from [facility] did give him some counseling resources. Pt works, has no home care or need on dc. Plan for life vest. will be transport on dc. Per cardiology note they may started farxiga or jardiance. Discussed with RN can get free/co pay cards - Edwina Gerardo RN 10/16/23 11:53 AM [facility] 10-15-2023 Plan of care note Problem: Pain Goal: Patient goal is pain score less than 4, able to rest, and participant in treatment plan as appropriate Description: INTERVENTIONS: 1. Encourage patient or legal technical support representative to report early pain and ask for pain medicine when needed 2. Assess pain using appropriate pain scale and include the scale used when documenting 3. Administer analgesics based on type and severity of pain and evaluate response within appropriate time frame 4. Implement non-pharmacological measures as appropriate and evaluate response 5. Consider cultural and social influences on pain and pain management 6. Notify LIP if interventions ineffective or patient reports new pain 7. Monitor vital signs including pulse ox, end-tidal CO2 based on pain intervention 8. Reassess pain per policy 9. Teach patient or legal technical support representative interventions for comforting Outcome: Progressing Note: Evaluation of progress towards goal: No pain during assessment Problem: Safety Goal: Patient will be injury free during hospitalization Description: INTERVENTIONS: 1. Assess patient's risk for falls and implement fall prevention plan of care per policy 2. Provide and maintain a safe environment 3. Proper use of double Identifiers 4. Medication administration using the 5 rights 5. Hand hygiene 6. Specimens are labeled at the bedside 7. Instruct patient/ patient technical support representative about use of safety devices 8. Include patient/ patient technical support representative in decisions related to safety Outcome: Progressing Note: Evaluation of progress towards goal: Pt oriented to room and environment. Bed wheels locked and in low position with side rails up 2/4 for safety. Personal belongings and call light within reach. Nonslip socks applied to feet. Pt instructed to call for assistance with ambulation. Problem: Infection Goal: Absence of infection during hospitalization Description: Interventions: 1. Assess and monitor for signs and symptoms of infection 2. Monitor lab/diagnostic results 3. Monitor all insertion sites i.e., indwelling lines, tubes and drains 4. Monitor endotracheal (as able) and nasal secretions for changes in amount and color 5. Administer medications as ordered 6. Instruct and encourage patient and family to use good hand hygiene technique 7. Identify and instruct patient/patient technical support representative in use of appropriate isolation precautions for identified infection/symptoms 8. Provide and discuss with patient/patient technical support representative on educational MDRO sheet 9. Encourage and monitor nutritional status daily and consult clinic physician if indicated 10. Implement neutropenic guidelines as needed 11. Review exposure to history of communicable disease and recent travel history on admission 12. Encourage annual influenza vaccine 13. Encourage pneumonia vaccine Outcome: Progressing Note: Evaluation of progress towards goal: Afebrile; will continue to assess and monitor for s/s infection. [place] 10-15-2023 Progress note Formatting of t his note is different from the original. Images from the original note were not included. [facility] [address] [place] [address] PROGRESS NOTE 10/15/2023 12:17 PM Subjective: Mr. Rose has no chest pain. Cardiac catheterization results Conclusion: 1. Nonobstructive coronary artery disease. 2. Moderate to severely depressed left ventricular systolic function. Recommendation: 1. Medical therapy as needed. Risk factor modification 2. Electrophysiology evaluation EF showed 20-25% Current Meds: Current Facility-Administered Medications: aspirin chewable tablet 81 mg, 81 mg, oral, Daily, Alexandre Guajardo MD, 81 mg at 10/15/23 08 atorvastatin (LIPITOR) tablet 40 mg, 40 mg, oral, Nightly, Alexandre Guajardo MD, 40 mg at 10/14/232011 carvediloL (COREG) tablet 25 mg, 25 mg, oral, BID, Alexandre Guajardo MD, 25 mg at 10/15/23 09 furosemide (LASIX) tablet 20 mg, 20 mg, oral, Daily, Alexandre Guajardo MD, 20 mg at 10/15/23 0851 lisinopriL (PRINIVIL,ZESTRIL) tablet 20 mg, 20 mg, oral, Daily, Alexandre Guajardo MD, 20 mg at 10/15/23 0851 [START ON 2023] metFORMIN (GLUCOPHAGE) tablet 500 mg, 500 mg, oral, BID with meals, Patricia Schuster MD potassium chloride (K-TAB,KLOR-CON) CR tablet 10 mEq, 10 mEq, oral, BID, Alexandre Guajardo MD, 10 mEq at 10/15/23 0851 spironolactone (ALDACTONE) tablet 25 mg, 25 mg, oral, Daily, Alexandre Guajardo MD, 25 mg at 10/15/23 0852 Continuous Infusions: VITAL SIGNS BP (!) 130/104 Pulse 83 Temp 36.9 C (98.4 F) (Oral) Resp 20 Ht 157.5 cm (5' 2 ) Wt 86.2 kg (190 lb) SpO2 96% BMI 34.75 kg/m 0 L/min Admit Weight: 86.2 kg (190 lb) Last 3 weights: Wt Readings from Last 3 Encounters: 10/14/23 86.2 kg (190 lb) 10/14/23 89 kg (196 lb 1.6 oz) 09/29/23 101.2 kg (223 lb 3.2 oz) BMI: Body mass index is 34.75 kg/m . INPUT/OUTPUT: Intake/Output Summary (Last 24 hours) at 10/15/2023 1217 Last data filed at 10/15/2023 0858 Gross per 24 hour Intake -- Output 2300 ml Net -2300 ml Current Meds: Current Facility-Administered Medications: aspirin chewable tablet 81 mg, 81 mg, oral, Daily, Alexandre Guajardo MD, 81 mg at 10/15/23 08 atorvastatin (LIPITOR) tablet 40 mg, 40 mg, oral, Nightly, Alexandre Guajardo MD, 40 mg at 10/14/232011 carvediloL (COREG) tablet 25 mg, 25 mg, oral, BID, Alexandre Guajardo MD, 25 mg at 10/15/23 0900 furosemide (LASIX) tablet 20 mg, 20 mg, oral, Daily, Alexandre Guajardo MD, 20 mg at 10/15/23 0851 lisinopriL (PRINIVIL,ZESTRIL) tablet 20 mg, 20 mg, oral, Daily, Alexandre Guajardo MD, 20 mg at 10/15/23 0851 [START ON 2023] metFORMIN (GLUCOPHAGE) tablet 500 mg, 500 mg, oral, BID with meals, Patricia Schuster MD potassium chloride (K-TAB,KLOR-CON) CR tablet 10 mEq, 10 mEq, oral, BID, Alexandre Guajardo MD, 10 mEq at 10/15/23 0851 spironolactone (ALDACTONE) tablet 25 mg, 25 mg, oral, Daily, Alexandre Guajardo MD, 25 mg at 10/15/23 0852 Continuous Infusions: EXAM: General appearance: In no acute distress. Lungs: Clear to Auscultation bilaterally Heart: regular rate and rhythm S1 S2 Abdomen: Soft nontender Extremities: No edema Psych: Appropriate mood and affect. Awake, alert and oriented x 3. Other: CV HISTORY: ECHO: Echo complete W/O contrast Result Date: 10/13/2023 Left Ventricle: Systolic function is severely decreased with an ejection fraction of 20-25%. The quantitative EF by 2D Ayers biplane is 22%. Aortic Valve: There is trace regurgitation. There is no evidence of aortic valve stenosis. Mitral Valve: There is mild to moderate regurgitation. There is no evidence of mitral valve stenosis. Tricuspid Valve: There is mild regurgitation. STRESS: No results found. HOLTER: No results found. CARDIAC CATH: Cardiac catheterization Result Date: 10/14/2023 Conclusion: 1. Nonobstructive coronary artery disease. 2. Moderate to severely depressed left ventricular systolic function. Recommendation: 1. Medical therapy as needed. Risk factor modification 2. Electrophysiology evaluation CAROTID: No results found. EKG: CXR: @CXR24@ LABS CBC: Lab Results Component Value Date WBC 9.7 10/15/2023 HGB 16.0 10/15/2023 HCT 49.3 (H) 10/15/2023 MCV 89 10/15/2023 RDW 16.7 (H) 10/15/2023 PLT 314 10/15/2023 BMP: Lab Results Component Value Date K 4.6 10/15/2023 CL 103 10/15/2023 CO2 26 10/15/2023 BUN 21 10/15/2023 CREATININE 1.02 10/15/2023 EGFR >90 10/15/2023 GLU 160 (H) 10/15/2023 GLU 164 (H) 10/14/2023 MG/PHOS: Lab Results Component Value Date MG 1.8 10/14/2023 PT/INR: Lab Results Component Value Date INR 1.1 01/22/2019 PTT: No results found for: APTT BNP: Lab Results Component Value Date BNP 811 (H) 10/04/2023 Last 3 Troponin: No components found for: TROPONIN I;3 Lipid Panel: @BRIEFLAB(CHOL,TRIG,HDL,LDLCALC U,CHOLHDL Pulse Ox: )SpO2 Av.4 % Min: 94 % Max: 99 % Supplemental O2: O2 Flow Rate (L/min): 0 L/min Principal Problem: Syncope, unspecified syncope type ASSESSMENT / PLAN MPRESSIONS/PLAN @DX@ Syncope/ nonischemic cardiomyopathy / LV dysfunction-I would recommend that the patient stay, and obtain a LifeVest as the patient did have syncope and with severe LV dysfunction could have been a ventricular arrhythmia. Hard to tell if patient fell asleep or had true syncope, with the LV dysfunction no would want to have the LifeVest placed before he left Chronic systolic heart failure/nonischemic cardiomyopathy-patient is already on spironolactone carvedilol and lisinopril, could consider adding Farxiga or Jardiance not sure if he would be able to afford this [facility] Work Phone: 10-14-2023 Plan of care note Problem: Pain Goal: Patient goal is pain score less than 4, able to rest, and participant in treatment plan as appropriate Description: INTERVENTIONS: 1. Encourage patient or legal technical support representative to report early pain and ask for pain medicine when needed 2. Assess pain using appropriate pain scale and include the scale used when documenting 3. Administer analgesics based on type and severity of pain and evaluate response within appropriate time frame 4. Implement non-pharmacological measures as appropriate and evaluate response 5. Consider cultural and social influences on pain and pain management 6. Notify LIP if interventions ineffective or patient reports new pain 7. Monitor vital signs including pulse ox, end-tidal CO2 based on pain intervention 8. Reassess pain per policy 9. Teach patient or legal technical support representative interventions for comforting Outcome: Progressing Note: Evaluation of progress towards goal: Pt denies pain at this time, continuing to monitor Problem: Safety Goal: Patient will be injury free during hospitalization Description: INTERVENTIONS: 1. Assess patient's risk for falls and implement fall prevention plan of care per policy 2. Provide and maintain a safe environment 3. Proper use of double Identifiers 4. Medication administration using the 5 rights 5. Hand hygiene 6. Specimens are labeled at the bedside 7. Instruct patient/ patient technical support representative about use of safety devices 8. Include patient/ patient technical support representative in decisions related to safety Outcome: Progressing Note: Evaluation of progress towards goal: Pt safety maintained, pt remain free from falls, pt rounded on, continuing to monitor Problem: Infection Goal: Absence of infection during hospitalization Description: Interventions: 1. Assess and monitor for signs and symptoms of infection 2. Monitor lab/diagnostic results 3. Monitor all insertion sites i.e., indwelling lines, tubes and drains 4. Monitor endotracheal (as able) and nasal secretions for changes in amount and color 5. Administer medications as ordered 6. Instruct and encourage patient and family to use good hand hygiene technique 7. Identify and instruct patient/patient technical support representative in use of appropriate isolation precautions for identified infection/symptoms 8. Provide and discuss with patient/patient technical support representative on educational MDRO sheet 9. Encourage and monitor nutritional status daily and consult clinic physician if indicated 10. Implement neutropenic guidelines as needed 11. Review exposure to history of communicable disease and recent travel history on admission 12. Encourage annual influenza vaccine 13. Encourage pneumonia vaccine Outcome: Progressing Note: Evaluation of progress towards goal: Pt afebrile, continuing to monitor labs and vital signs Problem: Knowledge Deficit Goal: Patient/patient technical support representative demonstrates understanding of disease process, treatment plan, medications, and discharge instructions Description: INTERVENTIONS 1. Complete learning assessment and assess knowledge base 2. Provide teaching at level of understanding 3. Provide teaching via preferred learning method(s) Outcome: Progressing Note: Evaluation of progress towards goal: Pt verbalizes understanding of POC, continuing to update as needed Problem: Discharge Planning Goal: Discharge to post-acute care, other facility, or home with appropriate resources Description: Patient's goal is: INTERVENTIONS 1. Conduct assessment to determine patient/family and health care team treatment goals, and need for post-acute services based on payer coverage, community resources, and patient preferences, and barriers to discharge 2. Coordinate with Social work, Care Navigation, and Utilization Review to arrange appropriate level of services according to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 ng/mL 0.03 0.03 0.02 ProBNP Lipid Panel: Lab Results Component Value Date CHOL 118 (L) 10/04/2023 TRIG 105 10/04/2023 HDL 46 10/04/2023 Liver Panel: No results found for: ALB HgA1C: Lab Results Component Value Date HGBA1C 9.3 (H) 10/04/2023 ABG: Telemetry: Sinus rhythm EKG: No results found. LAST ECHO (Within 2 Years) Echo complete W/O contrast Result Date: 10/13/2023 Left Ventricle: Systolic function is severely decreased with an ejection fraction of 20-25%. The quantitative EF by 2D Ayers biplane is 22%. Aortic Valve: There is trace regurgitation. There is no evidence of aortic valve stenosis. Mitral Valve: There is mild to moderate regurgitation. There is no evidence of mitral valve stenosis. Tricuspid Valve: There is mild regurgitation. LAST STRESS (Within 2 Years) No results found. CATH: (Within 2 Years) None RADIOLOGY: Echo complete W/O contrast Result Date: 10/13/2023 Left Ventricle: Systolic function is severely decreased with an ejection fraction of 20-25%. The quantitative EF by 2D Ayers biplane is 22%. Aortic Valve: There is trace regurgitation. There is no evidence of aortic valve stenosis. Mitral Valve: There is mild to moderate regurgitation. There is no evidence of mitral valve stenosis. Tricuspid Valve: There is mild regurgitation. PHYSICAL EXAM Admission Weight: Weight: 101.2 kg (223 lb) I/O last 3 completed shifts: In: 4515.7 [P.O.:2260; I.V.:1630.4; IV Piggyback:625.3] Out: 4700 [Urine:4700] Weight change: -12.2 kg (-26 lb 14.4 oz) Wt Readings from Last 3 Encounters: 10/14/23 89 kg (196 lb 1.6 oz) 09/29/23 101.2 kg (223 lb 3.2 oz) 07/13/23 93 kg (205 lb) Vitals: Vitals: 10/14/23 0648 10/14/23 0731 10/14/23 0733 10/14/23 0734 BP: (!) 137/100 (!) 137/108 (!) 126/106 130/78 Pulse: 110 95 93 60 Resp: Temp: 36.8 C (98.2 F) 36.7 C (98.1 F) TempSrc: Temporal Oral SpO2: 98% 98% Weight: Height: Admit Weight Weight: 101.2 kg (223 lb) Last 3 Weights Last 3 Weight Readings 10/12/23 1457 10/13/23 0120 10/14/23 0620 Weight: 101.2 kg (223 lb) 86.2 kg (190 lb) 89 kg (196 lb 1.6 oz) Body mass index is 35.87 kg/m . INTAKE/OUTPUT I/O last 3 completed shifts: In: 4515.7 [P.O.:2260; I.V.:1630.4; IV Piggyback:625.3] Out: 4700 [Urine:4700] Intake/Output Summary (Last 24 hours) at 10/14/2023 0855 Last data filed at 10/14/2023 0638 Gross per 24 hour Intake 2997.35 ml Output 3300 ml Net -302.65 ml General appearance: Alert oriented and cooperative, in no acute distress Skin: Warm and dry to touch Head: Normocephalic, without obvious abnormality, atraumatic Eyes: Conjunctivae unremarkable, EOMs intact, sclera non icteric Neck: No JVD, no carotid bruit, neck supple, trachea midline Lungs: Clear to ausculation bilaterally, no use of accessory muscles. Heart:: RRR with normal S1 and S2 , no murmurs and no gallops. Abdomen: Soft, non-tender, bowel sounds normal Extremities: No edema Neurologic: Oriented to time, person and place, affect appropriate, no focal/major motor or sensory defects noted Psychiatric: Appropriate mood, memory and judgment ASSESSMENT Principal Problem: Syncope, unspecified syncope type Active Problems: Uncontrolled type 2 diabetes mellitus with hyperglycemia [place] Hypertension Chronic HFrEF (heart failure with reduced ejection fraction) [place]) Polysubstance abuse [place] PLAN 1. Incapacitation unknown if this was truly a syncopal episode versus falling asleep at the wheel. But given his worsening cardiomyopathy will definitely need further evaluation. Will plan for cardiac catheterization. Discussed case with my colleagues Dr. Cunningham and Dr. Guajardo will also consider electrophysiology evaluation. Will need outpatient sleep study and further titration of GDM T consider washout of lisinopril and initiation of Entresto. Of note he has been tolerating cocaine usage and carvedilol would continue with this. Polysubstance abuse cessation recommended as this will improve his overall mortality and morbidity. Caleb Anderson MD This note was completed using a voice systems integration manager system. Every effort was made to ensure accuracy. However, inadvertent computerized systems integration manager errors may be present. [facility] 10-07-2023 Miscellaneous Notes ----- Message from CEDRIC Jones sent at 09/30/2023 3:43 PM EST ----- Received referral for heart failure clinic and note also for EP from PCP's office to establish a local garde manager. Recommend he be scheduled with general cardiology and makes sense for heart failure clinic as well. Question if it was a mistake for EP and should see general garde manager first to determine. T/C to pt to schedule Gen Card appt with PPC. No answer and no v/m has been set up. SHEN 10-07-23 documented in this encounter [facility] 10-07-2023 Telephone encounter Note ----- Message from CEDRIC Jones sent at 09/30/2023 3:43 PM EST ----- Received referral for heart failure clinic and note also for EP from PCP's office to establish a local garde manager. Recommend he be scheduled with general cardiology and makes sense for heart failure clinic as well. Question if it was a mistake for EP and should see general garde manager first to determine. T/C to pt to schedule Gen Card appt with PPC. No answer and no v/m has been set up. LATOYAN 10-07-23 [facility]-05-2023 Miscellaneous Notes ----- Message from CEDRIC Jones sent at 09/30/2023 3:43 PM EST ----- Received referral for heart failure clinic and note also for EP from PCP's office to establish a local garde manager. Recommend he be scheduled with general cardiology and makes sense for heart failure clinic as well. Question if it was a mistake for EP and should see general garde manager first to determine. Unable to reach patient. VM not set up to . Patient needs to establish care w/general cardiology. Patient previously seen in 03/09/2019.AVANI Zhao documented in this encounter [facility] 10-05-2023 Telephone encounter Note ----- Message from CEDRIC Jones sent at 09/30/2023 3:43 PM EST ----- Received referral for heart failure clinic and note also for EP from PCP's office to establish a local garde manager. Recommend he be scheduled with general cardiology and makes sense for heart failure clinic as well. Question if it was a mistake for EP and should see general garde manager first to determine. [facility] 10-05-2023 Telephone encounter Note Unable to reach patient. not set up to . Patient needs to establish care w/general cardiology. Patient previously seen in 03/09/2019.[facility] Miscellaneous Notes Called pt to schedule ALLIED HEALTH TEACHER appt per PCP referral/Ovidio Tatum's note. No Answer. Voicemail full, unable to leave message. JLW [facility] encounter [facility]23 Telephone encounter Note Called pt to schedule ALLIED HEALTH TEACHER appt per PCP referral/Ovidio Tatum's note. No Answer. Voicemail full, unable to leave message. JLW [facility] History of Present illness Narrative Images from the original note were not included. [address] [place] [id number] Patient: Jorge Rose III Date of : 1980 Encounter Date: 09/29/2023 SUBJECTIVE: Chief Complaint: Chief Complaint Patient presents with wellness Patient ID: Jorge Rose III is a 42 y.o. male. Past medical notable for congestive heart failure with reduced ejection fraction, last echo in 2020 showed EF of 30%. Patient endorses poor medication adherence, has not been on his Lasix, lisinopril, potassium supplements for some time, recently restarted. Does wears compression socks. Has decreasing tolerance of his daily activities. Recently moved to the area and has not established with a garde manager. Noted to have swelling spreading to his abdomen. Last Echo in 2020 - EF 30% On lasix daily, was out of it for some time Currently tolerating daily activities but gets SOB The following portions of the patient's history were reviewed and updated as appropriate: allergies, current medications, past family history, past medical history, past social history, past surgical history and problem list. PHYSICAL EXAMINATION: Vitals: 09/29/23 1630 BP: 136/80 Pulse: 88 Temp: 36.5 C (97.7 F) SpO2: 97% Weight: 101.2 kg (223 lb 3.2 oz) Height: 160 cm (5' 2.99 ) Physical Exam Vitals reviewed. Constitutional: General: He is not in acute distress. Appearance: Normal appearance. Eyes: Extraocular Movements: Extraocular movements intact. Pupils: Pupils are equal, round, and reactive to light. Cardiovascular: Rate and Rhythm: Normal rate and regular rhythm. Pulses: Normal pulses. Heart sounds: Normal heart sounds. Pulmonary: Effort: Pulmonary effort is normal. No respiratory distress. Breath sounds: Rales (lower lung severino) present. No wheezing or rhonchi. Abdominal: General: Bowel sounds are normal. There is no distension. Palpations: Abdomen is soft. There is no mass. Tenderness: There is no abdominal tenderness. There is no right CVA tenderness, left CVA tenderness or guarding. Musculoskeletal: Cervical back: Normal range of motion and neck supple. Right lower leg: Edema present. Left lower leg: Edema present. Comments: Wearing knee high compression socks Neurological: Mental Status: He is alert and oriented to person, place, and time. Mental status is at baseline. ASSESSMENT/PLAN: Jorge was seen today for wellness. Diagnoses and all orders for this visit: Chronic HFrEF (heart failure with reduced ejection fraction) [place] - furosemide (LASIX) 20 mg tablet; Take 1 tablet (20 mg total) by mouth daily. - pen needle, diabetic 31 gauge x 1/4 needle; 90 each by miscellaneous route 3 (three) times a day. - potassium chloride (KLOR-CON M 20) 20 MEQ CR tablet; Take 1 tablet (20 mEq total) by mouth in the morning. - Comprehensive metabolic panel; Future - Hemoglobin A1c; Future - Lipid profile; Future - TSH with Reflex; Future - Magnesium; Future - Phosphorus; Future - B-type natriuretic peptide; Future - [facility] - [place], [place]; Future - [facility] [place], [place]; Future Uncontrolled type 2 diabetes mellitus with hyperglycemia ([facility] - insulin detemir U-100 (LEVEMIR FLEXTOUCH U100 INSULIN) 100 unit/mL (3 mL) insulin pen; Inject 30 Units under the skin daily with breakfast. - pen needle, diabetic 31 gauge x 1/4 needle; 90 each by miscellaneous route 3 (three) times a day. - Comprehensive metabolic panel; Future - Hemoglobin A1c; Future Primary hypertension - lisinopriL (PRINIVIL,ZESTRIL) 20 mg tablet; TAKE 1 TABLET BY MOUTH IN THE MORNING 39-year-old gentleman here today for interval assessment Has been noting increasing pedal edema, dyspnea on exertion No chest pain endorse Poor p.o. tolerance Chart review completed, has congestive heart failure with reduced ejection fraction with an EF of 30% in 2020. No garde manager established locally. Will place referrals, obtain labs and refill medications. Discussed increased use of Lasix for the next 3 days add b.i.d. instead of q.day. Follow-up in 1 week if symptoms fail to improve. ARLYN UGZMAN MD Family Medicine Physician [facility] Family Medicine / [facility] 09/29/23 This note was completed with voice recognition software. The document was reviewed for errors however some may still be present. Please do not hesitate to contact/Epic ms the author to verify any questions/concerns. documented in this encounter [email or web address] Evaluation note [facility] [employer] Other Evaluation note Diagnosis Chronic HFrEF (heart failure with reduced ejection fraction) ([facility] Primary Uncontrolled type 2 diabetes mellitus with hyperglycemia ([facility] Primary hypertension Unspecified essential hypertension documented in this encounter [place] SystemEvaluation note* Diagnosis Syncope, unspecified syncope type- Primary Chronic HFrEF (heart failure with reduced ejection fraction) ([facility]) Primary hypertension Unspecified essential hypertension Syncope, unspecified syncope type Class 2 severe obesity due to excess calories with serious comorbidity and body mass index (BMI) of 35.0 to 35.9 in adult documented in this encounter [facility] Diagnosis Chronic HFrEF (heart failure with reduced ejection fraction) ([facility])- Primary Primary hypertension Unspecified essential hypertension documented in this encounter [place] SystemEvaluation note* Diagnosis Uncontrolled type 2 diabetes mellitus with hyperglycemia ([facility]) documented in this encounter [place] SystemEvaluation note* Diagnosis Chronic HFrEF (heart failure with reduced ejection fraction) ([facility]) documented in this encounter [place] SystemEvaluation note* Diagnosis Chronic HFrEF (heart failure with reduced ejection fraction) ([facility]) documented in this encounter [place] SystemEvaluation note* Diagnosis Primary hypertension- Primary Unspecified essential hypertension Chronic HFrEF (heart failure with reduced ejection fraction) ([facility]) Class 2 severe obesity due to excess calories with serious comorbidity in adult, unspecified BMI ([facility]) documented in this encounter [place] SystemEvaluation note* Diagnosis Chronic HFrEF (heart failure with reduced ejection fraction) ([facility])- Primary Other cardiomyopathy ([facility]) Class 2 severe obesity due to excess calories with serious comorbidity and body mass index (BMI) of 35.0 to 35.9 in adult ([facility]) Uncontrolled type 2 diabetes mellitus with hyperglycemia ([facility]) documented in this encounter [place] SystemEvaluation note* Diagnosis Osteomyelitis of great toe of right foot ([facility])- Primary Type 2 diabetes mellitus with stage 3 decubitus ulcer of toe ([facility]) Diabetic polyneuropathy associated with type 2 diabetes mellitus ([facility]) documented in this encounter [facility] HealthcareEvaluation [facility]* Diagnosis Uncontrolled type 2 diabetes mellitus with hyperglycemia ([facility])- Primary documented in this encounter [place] SystemEvaluation note* Diagnosis Uncontrolled type 2 diabetes mellitus with hyperglycemia ([facility])- Primary documented in this encounter [place] SystemEvaluation note* Diagnosis Osteomyelitis of great toe of right foot ([facility])- Primary 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, stage 3 ([facility]) Postoperative visit documented in this encounter [facility] HealthcareEvaluation note* Diagnosis Osteomyelitis of great toe of right foot ([facility])- Primary 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, stage 3 ([facility]) Cellulitis and abscess of toe of right foot Diabetic polyneuropathy associated with type 2 diabetes mellitus ([facility]) Encounter for long-term (current) use of insulin ([facility] Encounter for long-term (current) use of insulin documented in this encounter [facility] HealthcareEvaluation note* Diagnosis Postoperative visit- Primary Osteomyelitis of great toe of right foot ([facility]) documented in this encounter [facility] HealthcareEvaluation note* Diagnosis Osteomyelitis of great toe of right foot ([facility])- Primary 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, stage 3 ([facility]) Cellulitis and abscess of toe of right foot Diabetic polyneuropathy associated with type 2 diabetes mellitus ([facility]) Encounter for long-term (current) use of insulin ([facility]) Encounter for long-term (current) use of insulin documented in this encounter [facility] HealthcareHistory general Narrative - [facility] Other Hospital Discharge instructions* Attachments The following attachments cannot be sent through Care Everywhere. * Dapagliflozin, ADULT (Malaysian) * Syncope (Fainting) Discharge Instructions (Malaysian) * Coronary Artery Disease Discharge Instructions (Malaysian) * Heart Failure Discharge Instructions, Adult (Malaysian) [facility] System[facility]ructions* Attachments The following attachments cannot be sent through Care Everywhere. * Heart Healthy Diet (Malaysian) documented in this encounterProMediRentMonitor Health SystemInstructionsNot on file documented in this encounterProMediRentMonitor Health SystemInstructionsNot on file documented in this encounterProMediRentMonitor Health SystemInstructionsNot on file documented in this encounterProMediRentMonitor Health SystemInstructionsNot on file documented in this encounterProMediRentMonitor Health SystemInstructionsNot on file documented in this encounterProMediRentMonitor Health SystemInstructionsNot on file documented in this encounterPro[facility] SystemInstructionsNot on file documented in this encounterProMediRentMonitor Health SystemInstructionsNot on file documented in this encounterProMediGenotype Diagnostics SystemInstructionsNot on file documented in this encounterProMediGenotype Diagnostics SystemInstructionsNot on file documented in this encounterProMediGenotype Diagnostics SystemInstructionsNot on file documented in this encounterProMediGenotype Diagnostics SystemInstructionsNot on file documented in this encounterProMediRentMonitor Health SystemReason for referral (narrative)* Consultation (Routine) - Pending Review Specialty Diagnoses / Procedures Referred By Selena t Referred To Contact Heart Failure Services Diagnoses Chronic HFrEF (heart failure with reduced ejection fraction) [place] Arlyn Guzman MD [address] [facility] [place] [address] [facility] [address] [place] [address] Referral ID Status Reason Start Date Expiration Date V isits Requested Visits Authorized [id number] Pending Review 09/29/2023 09/28/2024 1 1 * Consultation (Routine) - Pending Review Specialty Diagnoses / Procedures Referred By Contac t Referred To Contact Cardiology Diagnoses Chronic HFrEF (heart failure with reduced ejection fraction) ([facility]) Arlyn Guzman MD [address] [facility] [place] [address] [facility] [address] [address] Referral ID Status Reason Start Date Expiration Date Visits Requested Visits Authorized [id number] Pending Review Specialty Services Required 09/29/2023 09/28/[address] [place] for [place] (narrative)* Consultation (Routine) - Pending Review Specialty Diagnoses / Procedures Referred By Contac t Referred To Contact Cardiac Rehabilitation Diagnoses Chronic HFrEF (heart failure with reduced ejection fraction) ([facility] Procedures [facility] Noel Jasso MD [address] [place] [address] [facility] Cardiac Rehab Billing [address] [place] [address] Referral ID Status Reason Start Date Expiration Date V isits Requested Visits Authorized [id number] Pending Review 10/31/2023 10/30/2024 1 1 * Diagnostic Imaging (Routine) - Pending Review Specialty Diagnoses / Procedures Referred By Selena coleman Referred To Contact Radiology Diagnoses Chronic HFrEF (heart failure with reduced ejection fraction) ([facility]) Primary hypertension Procedures MR cardiac for morphology with and without contrast Grecia Tatum APRN-CNP [address] [place] [address] Referral ID Status Reason Start Date Expiration Date V isits Requested Visits Authorized [id number] Pending Review 10/31/2023 10/30/2024 [address] [place] [facility] Narrative* Consultation (Routine) - Authorized Specialty Diagnoses / Procedures Referred By Selena coleman Referred To Contact Cardiac Rehabilitation Diagnoses Chronic HFrEF (heart failure with reduced ejection fraction) ([facility]) [facility] Noel Jasso MD [address] [place] [address] [facility] Cardiac Rehab Billing [address] [place] [address] Referral ID Status Reason Start Date Expiration Date V isits Requested Visits Authorized [id number] Authorized 10/31/2023 10/30/2024 36 36 [place] Summary Purpose Family History Unknown Family Member Name Dates Details Family history of cardiac di sorder: Mother, Brother(V17.49, Z82.49) Status:Active Family history of diabetes m ellitus: Mother(V18.0, Z83.3) Status:Active Family history of CABG: Fat er(V17.49, Z82.49) Status:Active Advance Directives Latest Code Status on File Code Status Date Activated Date Inactivated Comments Full Code 06/28/2022 1:47 PM 07/01/2022 5:41 PM Code Status History Code Status Date Activated Date Inactivated Comments Full Code 01/23/2019 11:15 PM 01/27/2019 4:30 PM Full Code 01/22/2019 4:53 PM 01/23/2019 9:05 PM Latest Code Status on File Code Status Date Activated Date Inactivated Comments Full Code 06/28/2022 1:47 PM 07/01/2022 5:41 PM Code Status History Code Status Date Activated Date Inactivated Comments Full Code 01/23/2019 11:15 PM 01/27/2019 4:30 PM Full Code 01/22/2019 4:53 PM 01/23/2019 9:05 PM Latest Code Status on File Code Status Date Activated Date Inactivated Comments Full Code 10/16/2023 10:31 AM 2023 7:25 PM Code Status History Code Status Date Activated Date Inactivated Comments Full Code 10/12/2023 6:42 PM 10/14/2023 12:27 PM Full Code 06/28/2022 1:47 PM 07/01/2022 5:41 PM Full Code 01/23/2019 11:15 PM 01/27/2019 4:30 PM Full Code 01/22/2019 4:53 PM 01/23/2019 9:05 PM Latest Code Status on File Code Status Date Activated Date Inactivated Comments Full Code 10/16/2023 10:31 AM 2023 7:25 PM Code Status History Code Status Date Activated Date Inactivated Comments Full Code 10/12/2023 6:42 PM 10/14/2023 12:27 PM Full Code 06/28/2022 1:47 PM 07/01/2022 5:41 PM Full Code 01/23/2019 11:15 PM 01/27/2019 4:30 PM Full Code 01/22/2019 4:53 PM 01/23/2019 9:05 PM Date Activated Date Inactivated Comments 05/05/2024 1:46 PM 05/10/2024 7:49 PM Date Activated Date Inactivated Comments 10/16/2023 10:31 AM 2023 7:25 PM Date Activated Date Inactivated Comments 10/12/2023 6:42 PM 10/14/2023 12:27 PM Date Activated Date Inactivated Comments 06/28/2022 1:47 PM 07/01/2022 5:41 PM Date Activated Date Inactivated Comments 01/23/2019 11:15 PM 01/27/2019 4:30 PM Date Activated Date Inactivated Comments 05/05/2024 1:46 PM 05/10/2024 7:49 PM Date Activated Date Inactivated Comments 10/16/2023 10:31 AM 2023 7:25 PM Date Activated Date Inactivated Comments 10/12/2023 6:42 PM 10/14/2023 12:27 PM Date Activated Date Inactivated Comments 06/28/2022 1:47 PM 07/01/2022 5:41 PM Date Activated Date Inactivated Comments 01/23/2019 11:15 PM 01/27/2019 4:30 PM Reason for Referral Specialty Diagnoses / Procedures Referred By Contac t Referred To Contact Diagnoses Uncontrolled type 2 diabetes mellitus with hyperglycemia ([facility]) Procedures Alcohol prep pad Arlyn Guzman MD [address] [place] [address] Referral ID Status Reason Start Date Expiration Date V isits Requested Visits Authorized [id number] Pending Review 06/20/2024 06/20/2025 1 1 Specialty Diagnoses / Procedures Referred By Contac t Referred To Contact Diagnoses Uncontrolled type 2 diabetes mellitus with hyperglycemia ([facility]) Procedures Lancets Arlyn Guzman MD [address] [place] [address] Referral ID Status Reason Start Date Expiration Date V isits Requested Visits Authorized [id number] Pending Review 06/20/2024 06/20/2025 1 1 Specialty Diagnoses / Procedures Referred By Contac t Referred To Contact Procedures Discharge Follow-Up Mildred Meza APRN-CNP [address] [place] [address] Referral ID Status Reason Start Date Expiration Date V isits Requested Visits Authorized [id number] Pending Review 2023 10/16/2024 1 1 Specialty Diagnoses / Procedures Referred By Contac t Referred To Contact Diagnoses Class 2 severe obesity due to excess calories with serious comorbidity and body mass index (BMI) of 35.0 to 35.9 in adult Procedures Follow-up with primary care provider Mildred Meza APRN-LABORATORY MANAGER [address] [place] [address] Referral ID Status Reason Start Date Expiration Date V isits Requested Visits Authorized [id number] Pending Review 2023 10/16/2024 1 1 Additional Source Comments (unrecognized sect ion and content) No Status Records FoundNo Status Records FoundNo Status Records FoundNo Status Records FoundNo Status Records FoundNo Status Records FoundNo Status Records FoundNo Status Records Found INFORMATION SOURCE (unrecogn ized section and content) DATE CREATED AUTHOR 03/15/2018 [facility] DATE CREATED AUTHOR AUTHOR'S ORGANIZ ATION 01/08/2021 [facility] DATE CREATED AUTHOR AUTHOR'S ORGANIZ ATION 10/04/2021 [facility] DATE CREATED AUTHOR AUTHOR'S ORGANIZ ATION 02/10/2024 [facility] DATE CREATED AUTHOR AUTHOR'S ORGANIZ ATION 05/18/2024 [facility] DATE CREATED AUTHOR AUTHOR'S ORGANIZ ATION 07/03/2024 [facility] DATE CREATED AUTHOR AUTHOR'S ORGANIZ ATION 07/05/2024 [facility] Special[facility] EPIC DATE CREATED AUTHOR AUTHOR'S ORGANIZ ATION 07/05/2024 [facility] Reason for Visit (unrecogniz ed section and content) Reason Comments POV #2 Jorge Rose III is a 43 y.o. male who presents for Post-op #2. Patient relates he continues Antibiotics prescribed by Dr. Verdugo, and continues IV antibiotics 3 times daily, however PICC line came out over the weekend and patient is having replaced today. Dr. Guzman/Dylan 05/16/2024 BS 176. SS 11 Reason Comments Post-op Established pt prese nts today for POV#1. Pt relates doing well. Has not been able to check blood sugars from lack of supplies. Reason Onset Date Comments Advice Only 06/22/2024 Antibiotic Rx Reason Onset Date Comments Advice Only 06/21/2024 Concerns Regardi ng Bleeding Reason Comments Post-op Established pt prese nts today as an urgent add-on for dressing change. Pt's dressing was fully soaked in blood, pt relates stopping aspirin the day before surgery. Reason Onset Date Comments Advice Only 06/20/2024 Pain Rx Request Reason Onset Date Comments Care Navigation 06/15/2024 Reason Comments Follow-up 3 month Reason Comments Hospital Follow-up IP [facility] Cardiomyopathy Specialty Diagnoses / Procedures Referred By [facility] t Referred To Contact Cardiology Diagnoses Chronic HFrEF (heart failure with reduced ejection fraction) [place] Arlyn Guzman MD [address] [facility] [place] [address] [facility] [address] [address] Referral ID Status Reason Start Date Expiration Date Visits Requested Visits Authorized [id number] Pending Review Specialty Services Required 09/29/2023 09/28/2024 1 1 Reason Comments Med Refill Reason Comments 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 Specialty Diagnoses / Procedures Referred By [facility] Referred To Contact Heart Failure Services Diagnoses Chronic HFrEF (heart failure with reduced ejection fraction) ([facility] Arlyn Guzman MD [address] [facility] [place] [address] [facility] [address] [place] [address] Referral ID Status Reason Start Date Expiration Date V isits Requested Visits Authorized [id number] Pending Review 09/29/2023 09/28/2024 1 1 Specialty Diagnoses / Procedures Referred By [facility] Referred To Contact Diagnoses Cardiomyopathy ([facility] Cardiomyopathy Procedures VT CATH PLMT L HRT & ARTS W/NJX & ANGIO IMG S&I Cardiac catheterization Alexandre Guajardo MD [address] [place] [address] Referral ID Status Reason Start Date Expiration Date Visits Re quested Visits Authorized [id number] 1 1 Reason Comments wellness Care Teams (unrecognized sec tion and content) Manager Msw Relationship Specialty Start Date End Date Arlyn Guzman MD [address] [place] [address] PCP - General Internal Medicine 07/21/22 Manager Msw Relationship Specialty Start Date End Date Arlyn Guzman MD [address], [place] [address] PCP - General Internal Medicine 07/21/22 Manager Msw Relationship Specialty Start Date End Date Arlyn Guzman MD [address], [place] [address] PCP - General Internal Medicine 07/21/22 Manager Msw Relationship Specialty Start Date End Date Arlyn Guzman MD [address], [place] [address] PCP - General Internal Medicine 07/21/22 Manager Msw Relationship Specialty Start Date End Date Arlyn Guzman MD [address], [place] [address] PCP - General Internal Medicine 10/12/23 Manager Msw Relationship Specialty Start Date End Date Arlyn Guzman MD [address], [place] [address] PCP - General Internal Medicine 10/12/23 Manager Msw Relationship Specialty Start Date End Date Arlyn Guzman MD [address], [place] [address] PCP - General Internal Medicine 10/12/23 Manager Msw Relationship Specialty Start Date End Date Arlyn Guzman MD [address], [place] [address] PCP - General Internal Medicine 10/12/23 Manager Msw Relationship Specialty Start Date End Date Arlyn Guzman MD [address], [place] [address] PCP - General Internal Medicine 10/12/23 Manager Msw Relationship Specialty Start Date End Date Arlyn Guzman MD [address], [place] [address] PCP - General Internal Medicine 10/12/23 Manager Msw Relationship Specialty Start Date End Date Arlyn Guzman MD [address], [place] [address] PCP - General Internal Medicine 10/12/23 Manager Msw Relationship Specialty Start Date End Date Arlyn Guzman MD [address], [place] [address] PCP - General Internal Medicine 10/12/23 Manager Msw Relationship Specialty Start Date End Date Arlyn Guzman MD [address], [place] [address] PCP - General Internal Medicine 10/12/23 Manager Msw Relationship Specialty Start Date End Date Arlyn Guzman MD [address], [place] [address] PCP - General Internal Medicine 10/12/23 Manager Msw Relationship Specialty Start Date End Date Arlyn Guzman MD [address], [place] [address] PCP - General Internal Medicine 10/12/23 Manager Msw Relationship Specialty Start Date End Date Arlyn Guzman MD [address], [place] [address] PCP - General Internal Medicine 10/12/23 Manager Msw Relationship Specialty Start Date End Date Arlyn Guzman MD [address], [place] [address] PCP - General Internal Medicine 10/12/23 Manager Msw Relationship Specialty Start Date End Date Arlyn Guzman MD [address], [place] [address] PCP - General Internal Medicine 05/05/24 Manager Msw Relationship Specialty Start Date End Date Arlyn Guzman MD [address], [place] [address] PCP - General Family Medicine 05/08/24 Manager Msw Relationship Specialty Start Date End Date Arlyn Guzman MD [address], [place] [address] PCP - General Internal Medicine 05/05/24 Manager Msw Relationship Specialty Start Date End Date Arlyn Guzman MD [address], [place] [address] PCP - General Internal Medicine 05/05/24 Manager Msw Relationship Specialty Start Date End Date Arlyn Guzman MD [address], [place] [address] PCP - General Internal Medicine 05/05/24 Manager Msw Relationship Specialty Start Date End Date Arlyn Guzman MD [address], [place] [address] PCP - General Family Medicine 05/08/24 Manager Msw Relationship Specialty Start Date End Date Arlyn Guzman MD [address], [place] [address] PCP - General Internal Medicine 05/05/24 Manager Msw Relationship Specialty Start Date End Date Arlyn Guzman MD [address], [place] [address] PCP - General Family Medicine 05/08/24 Manager Msw Relationship Specialty Start Date End Date Arlyn Guzman MD [address], [place] [address] PCP - General Family Medicine 05/08/24 Manager Msw Relationship Specialty Start Date End Date Arlyn Guzman MD [address], [place] [address] PCP - General Family Medicine 05/08/24 Manager Msw Relationship Specialty Start Date End Date Arlyn Guzman MD [address], [place] [address] PCP - General Family Medicine 05/08/24 Manager Msw Relationship Specialty Start Date End Date Arlyn Guzman MD [address], [place] [address] PCP - General Family Medicine 05/08/24 Manager Msw Relationship Specialty Start Date End Date Arlyn Guzman MD [address] [facility] [place] [address] PCP - General Family Medicine 05/08/24 Scheduled Active and Recently Administ ered Medications (unrecognized section and content) Medication Order 10/15/2023 10/16/2023 2023 aspirin chewable tablet 81 mg 81 mg, oral, Daily, First dose on Tue10/14/23 at 1500 0851 (Given - Provider: Sun Bates RN) 0809 (Given - Provider: Scott Ryan, RN) 0744 (Given - Provider: Med Dick, RN) atorvastatin (LIPITOR) tablet 40 mg 40 mg, oral, Nightly, First dose on Tue10/14/23 at 2200, Look-alike/sound-alike medication - verify indication for use. 2003 (Given - Provider: Mata Brantley RN) 1951 (Given - Provider: Kayla Greer RN)2200 (Canceled Entry - Provider: Kayla Greer RN - Comment: given see MAR) carvediloL (COREG) tablet 25 mg 25 mg, oral, 2 times daily, First dose on Tue10/14/23 at 2100, Give with meal or snack. Look-alike/sound-alike medication - verify indication for use. 0900 (Given - Provider: Sun Bates RN)2003 (Given - Provider: Mata Brantley RN) 08 (Given - Provider: Scott Ryan RN)1951 (Given - Provider: Kayla Greer RN)2100 (Canceled Entry - Provider: Kayla Greer RN - Comment: given see MAR) 0743 (Given - Provider: Med Dick, RN) dapagliflozin propanediol (FARXIGA) tablet 10 mg 10 mg, oral, Daily, First dose on Tue10/17/23 at 1000 1038 (Given - Provider: Med Dick, RN) furosemide (LASIX) tablet 20 mg 20 mg, oral, Daily, First dose on Tue10/14/23 at 1500, Look-alike/sound-alike medication - verify indication for use. 0851 (Given - Provider: Sun Bates RN) 0808 (Given - Provider: Scott Ryan RN) 0744 (Given - Provider: Med Dick, RN) insulin glargine (LANTUS, SEMGLEE) injection pen 30 Units 30 Units, subcutaneous, Daily with breakfast, First dose on Tue10/17/23 at 0800, Look-alike/sound-alike medication - verify indication for use. Prime with 2 units of insulin prior to administration. Basal (long acting) insulin for subcutaneous administration only. Do not mix with any other insulin. Pre-filled pens stable 28 days at room temperature. 0817 (Given - Provider: Med Dick, RN) insulin lispro (HumaLOG) injection 2-10 Units 2-10 Units, subcutaneous, 3 times daily with meals, First dose on Tue10/16/23 at 1200, Daytime hyperglycemia dosing. For blood glucose 151-200 mg/dL, give 2 units. For blood glucose 201-250 mg/dL, give 4 units. For blood glucose 251-300 mg/dL, give 6 units. For blood glucose 301-350 mg/dL, give 8 units. For blood glucose 351-400 mg/dL, give 10 units. Give even if NPO or meals skipped. Do NOT give more often then every 4 hours when NPO. Notify prescriber if blood glucose greater than 400 mg/dL. Look-alike/sound-alike medication - verify indication for use. Prime with 2 units of insulin prior to administration. Prandial/supplemental Insulin. Pre-filled pens stable 28 days at room temperature. Insulin lispro should be administered within 15 minutes before or immediately after a meal. 1340 (Given - Provider: Scott Ryan RN)1806 (Given - Provider: Scott Ryan RN) 0818 (Given - Provider: Med Dick, RN)1405 (Given - Provider: Med Dick, RN)1700 (Not Given - Provider: Med Dick, RN - Reason: Other - Comment: pt discharged) insulin lispro (HumaLOG) injection 2-8 Units 2-8 Units, subcutaneous, Nightly, First dose on Tue10/16/23 at 2200, Bedtime hyperglycemia dosing. For blood glucose 201-250 mg/dL, give 2 units. For blood glucose 251-300 mg/dL, give 4 units. For blood glucose 301-350 mg/dL, give 6 units. For blood glucose 351-400 mg/dL, give 8 units. Give even if NPO or meals skipped. Do NOT give more often then every 4 hours when NPO. Notify prescriber if blood glucose greater than 400 mg/dL. Look-alike/sound-alike medication - verify indication for use. Prime with 2 units of insulin prior to administration. Prandial/supplemental Insulin. Pre-filled pens stable 28 days at room temperature. Insulin lispro should be administered within 15 minutes before or immediately after a meal. 2200 (Not Given - Provider: Kayla Greer RN - Reason: Order parameters not met - Comment: bg 191) lidocaine (LIDODERM) 5 % 1 patch 1 patch, transdermal, Administer over 12 Hours, Daily, First dose on Tue10/16/23 at 1100, Apply to intact skin on right shoulder. Patch(es) may remain in place for up to 12 hours in any 24-hour period. Remove previous patch, if present, before applying new. 1157 (Medication Applied - Provider: Scott Ryan RN)2357 (Medication Removed - Provider: Kayla Greer RN) 0745 (Medication Applied - Provider: Med Dick, RN)194 (Due: Medication Removed - Provider: Med Dick, RN) lisinopriL (PRINIVIL,ZESTRIL) tablet 20 mg 20 mg, oral, Daily, First dose on Tue10/14/23 at 1500, Look-alike/sound-alike medication - verify indication for use. 0851 (Given - Provider: Sun Bates RN) 0808 (Given - Provider: Scott Ryan RN) 0744 (Given - Provider: Med Dick, RN) potassium chloride (K-TAB,KLOR-CON) CR tablet 10 mEq 10 mEq, oral, 2 times daily, First dose on Tue10/14/23 at 2100, Do not crush or chew. 0851 (Given - Provider: Sun Bates RN)2003 (Given - Provider: Mata Brantley RN) 0808 (Given - Provider: Scott Ryan RN)1951 (Given - Provider: Kayla Greer RN)2100 (Canceled Entry - Provider: Kayla Greer RN - Comment: given see MAR) 0744 (Given - Provider: Med Dick, RN) spironolactone (ALDACTONE) tablet 25 mg 25 mg, oral, Daily, First dose on Tue10/14/23 at 1500 0852 (Given - Provider: Sun Bates RN) 0810 (Given - Provider: Scott Ryan RN) 0744 (Given - Provider: Med Dick RN) FOR RECORDS PERTAINING TO PATIENTS WHO ARE OR HAVE BEEN ENROLLED IN A CHEMICAL DEPENDENCY/SUBSTANCEABUSE PROGRAM, SOME INFORMATION MAY BE OMITTED. This clinical summary was aggregated from multiple sources. Caution should be exercised in using it in the provision of clinical care. This summary normalizes information from multiple sources, and as a consequence, information in this document may materially change the coding, format and clinical context of patient data. In addition, data may be omitted in some cases. CLINICAL DECISIONS SHOULD BE BASED ON THE PRIMARY CLINICAL RECORDS. [facility] [employer], [facility]. provides no warranty or guarantee of the accuracy or completeness of information in this document.
[2024-07-09 12:13] LABS: Estimated GFR (African America >60 (>=60 mL/min/1.73m^2); Estimated GFR (Non-African Ame >60 (>=60 mL/min/1.73m^2)
[2024-07-09 12:15] LABS: C Reactive Protein <0.50 mg/dL (<=0.50)
== END 2024-07-09 11:41 | disposition home or self-care (01) ==
LOC: LAB 11:40
DX: M86.171 Other acute osteomyelitis, right ankle and foot (principal)
CPT/HCPCS: 36415; 82565; 84520; 85025; 86140